=== PATIENT | male | born 1935 | race African-American/Black ===

== ENCOUNTER 2019-06-29 14:25 | Inpatient (IN) | payer MEDICARE, OTHER ==
--- NOTE | 2019-06-29 15:02 | RAD ---
EXAM: Chest 2 views: HISTORY: Chest pain which started last p.m. COMPARISON: None. FINDINGS: Heart size:Within normal limits. Lungs:Clear of acute process. Atherosclerotic changes of the aorta. No confluent pneumonia, overt edema, pleural effusion, pneumothorax, or other significant acute proce ss. IMPRESSION: Atherosclerosis of the aorta. No acute intrathoracic disease.
[2019-06-29 15:10] LABS: #Basophils 0.1 thou/uL (0.0-0.2); #Eosinphils 0.1 thou/uL (0.0-0.7); #Lymphocytes 1.2 thou/uL (1.20-3.40); #Monocytes 0.4 thou/uL (0.11-0.59); #Neutrophils 3.5 thou/uL (1.40-6.50); %Basophils 1.1 % (0.0-1.0); %Eosinophils 1.7 % (0.0-10.0); %Lymphocytes 23.1 % (21.0-51.0); %Monocytes 7.7 % (0.0-10.0); %Neutrophils 66.4 % (42.0-75.0); Hemoglobin 8.2 g/dL (14.0-18.0); Mean Corpuscular Hemoglobin 36.7 pg (27.0-31.0); Mean Platelet Volume 7.1 fL (7.4-10.4); Platelet Count 193 thou/uL (130-400); RBC Distribution Width 11.5 % (11.5-14.5); Red Blood Cell (RBC) Count 2.24 mill/uL (4.70-6.10); White Blood Cell (WBC) Count 5.2 thou/uL (4.8-10.8)
[2019-06-29 15:30] LABS: ALT (SGPT) 15 U/L (8-55); AST (SGOT) 11 U/L (5-34); Albumin 4.1 g/dL (3.4-4.8); Alkaline Phosphatase 88 U/L (40-110); Anion Gap 10 mmol/L (10-20); BUN (Urea Nitrogen) 31 mg/dL (8.4-25.7); Bilirubin, Total 0.5 mg/dL (0.2-1.2); Calc. Creatinine Clearance 0 mL/min (70-130); Calcium 9.2 mg/dL (7.8-10.44); Carbon Dioxide 25 mmol/L (23-31); Chloride 108 mmol/L (98-107); Estimated GFR-MDRD 38; Globulin 2.3 g/dL (2.4-3.5); Glucose 129 mg/dL (83-110); Potassium 4.9 mmol/L (3.5-5.1); Protein, Total 6.4 g/dL (5.8-8.1); Sodium 138 mmol/L (136-145)
[2019-06-29] MEDS ORDERED: Nitroglycerin 0.4 MG TAB 1 EACH ONE (16:09)
[2019-06-29] MEDS ORDERED: Senokot S 8.6-50 MG TAB PO PRN (17:58)
[2019-06-29] MEDS ORDERED: Acetaminophen 325 MG TAB PO PRN (17:58)
[2019-06-29] MEDS: Famotidine 20 MG TAB PO SCH (21:07)
[2019-06-29 21:34] LABS: Troponin I Less than 0.010 ng/mL (< 0.028)
[2019-06-29] MEDS ORDERED: Nitroglycerin 0.4 MG TAB (25 Tab Bottle) SL PRN (23:51)
--- NOTE | 2019-06-30 00:21 | HP ---
PRIMARY CARE PHYSICIAN: Ángel Carlos MD CHIEF COMPLAINT: Chest pain. HISTORY OF PRESENT ILLNESS: Mr. Caballero is a very pleasant 84-year-old male, who reported to the emergency room today after having chest pain, which he reports is sharp, since about 11 o'clock last night. Reports that it is intermittent and reminds him of his chest pain that he had over 5 years ago when 3 stents were placed for blockage. Reports that he was admitted to [facility] recently for hyperkalemia. He reports that Dr. Guzman has recently done a heart catheterization, which showed that he has some blockage in 3 coronary arteries. He was sent to Dr. George for evaluation for a CABG. He reports that he was going to visit with Dr. George today about scheduling this CABG and was advised not to take his daily aspirin. He denied any cough, congestion, diaphoresis, or pain radiation. He does report some shortness of breath and chest pain with exertion. EKG in the emergency room shows a normal sinus rhythm, beats per minute 77, conduction was normal, ST segments normal, T-waves were normal. Chest x-ray showed no acute process. Troponin x3 undetectable. The patient does have some chronic kidney disease and today, this appears stable. The patient admitted to the observation unit for further management. REVIEW OF SYSTEMS: The patient reports chest pain on the left side of his chest. Reports palpitations. Reports shortness of breath. Denies any cough, fever, or chills. He denied any abdominal pain, nausea, vomiting, or diarrhea. All systems are reviewed and are negative unless mentioned in the HPI. PAST MEDICAL HISTORY: Pertinent for hypertension, hyperkalemia, hyperlipidemia, gout, and coronary artery disease. SURGICAL HISTORY: Three cardiac stents, right wrist surgery, right shoulder surgery, 2 cardiac catheterizations. PSYCHIATRIC HISTORY: None. SOCIAL HISTORY: Drinks socially. Denies any drug use. Has no smoking history. ALLERGIES: PLAVIX AND DEMEROL. HOME MEDICATIONS: 1. Allopurinol 300 mg p.o. daily. 2. Norvasc 5 mg p.o. daily. 3. Atenolol p.o. daily. 4. Colchicine 0.6 mg p.o. daily. 5. Benadryl 25 mg p.r.n. as needed. 6. Pepcid 20 mg p.o. daily. 7. Fergon 324 mg p.o. daily. 8. Folic acid 1 mg p.o. daily. 9. Apresoline 10 mg p.o. daily. 10. Hydrochlorothiazide 12.5 mg p.o. daily. 11. Isosorbide 30 mg p.o. daily. 12. Nitrostat 0.4 mg sublingual p.r.n. 13. Flomax 0.4 mg p.o. daily. PHYSICAL EXAMINATION: VITAL SIGNS: Blood pressure 174/56, pulse is 64, respirations 17, temperature is 97.9, PO2 sats are 99% on room air. CONSTITUTIONAL: The patient is nontoxic appearing. He is alert and oriented to person, place, and time. HEENT: Head is atraumatic and normocephalic. Eyes; eyelids are normal to inspection. Pupils are equally round and reactive to light. ENT; mouth exam is normal. Mucous membranes are moist. NECK: Normal range of motion. Trachea is midline. RESPIRATORY/CHEST: Chest movement is symmetrical. Breath sounds are clear. CARDIOVASCULAR: Regular rate and rhythm. Heart sounds are normal. ABDOMEN: Bowel sounds are heard. No tenderness on palpation. BACK: Normal to inspection. Normal range of motion. EXTREMITIES: Upper extremity; normal range of motion. Motor strength is normal. Radial pulses are normal. Lower extremity; normal range of motion. Motor strength is normal. Pedal pulses are normal. There is no edema noted. NEURO: Patient is oriented to person, place, and time. Speech is normal. SKIN: Warm, dry, normal in color. PSYCH: Has a normal affect. PLAN/ASSESSMENT: 1. Chest pain, quite possibly angina with recently diagnosed coronary artery disease and blockage. Dr. George has been consulted by Dr. Guzman for a CABG. The patient was on his way to see him in the office. We will ask Dr. George to consult. We will trend troponins, keep patient on a heart monitor. Lipids were done in May of this year. 2. Hypertension. Restart home medications. We will trend. 3. Chronic kidney disease. This appears stable. We will monitor. Hold any nephrotoxic drugs. 4. Gout, appears stable. 5. Deep venous thrombosis and gastrointestinal prophylaxis have been started. 6. The patient is a full code. The patient reports his is his surrogate decision maker. 7. Hospital course is dependent on clinical findings. Job ID: [id number]
[2019-06-30 06:07] LABS: #Eosinphils 0.2 thou/uL (0.0-0.7); #Lymphocytes 1.4 thou/uL (1.20-3.40); #Monocytes 0.4 thou/uL (0.11-0.59); #Neutrophils 2.4 thou/uL (1.40-6.50); %Basophils 0.2 % (0.0-1.0); %Eosinophils 4.8 % (0.0-10.0); %Lymphocytes 30.9 % (21.0-51.0); %Monocytes 9.4 % (0.0-10.0); %Neutrophils 54.7 % (42.0-75.0); Hemoglobin 7.7 g/dL (14.0-18.0); Mean Corpuscular HGB CONC 33.2 g/dL (32.0-36.0); Mean Platelet Volume 7.5 fL (7.4-10.4); Platelet Count 186 thou/uL (130-400); RBC Distribution Width 11.4 % (11.5-14.5); Red Blood Cell (RBC) Count 2.15 mill/uL (4.70-6.10); White Blood Cell (WBC) Count 4.5 thou/uL (4.8-10.8)
[2019-06-30 06:32] LABS: Anion Gap 10 mmol/L (10-20); BUN (Urea Nitrogen) 25 mg/dL (8.4-25.7); Calc. Creatinine Clearance 39 mL/min (70-130); Calcium 8.9 mg/dL (7.8-10.44); Carbon Dioxide 24 mmol/L (23-31); Chloride 109 mmol/L (98-107); Estimated GFR-MDRD 52; Glucose 96 mg/dL (83-110); Potassium 4.8 mmol/L (3.5-5.1); Sodium 138 mmol/L (136-145)
[2019-06-30] MEDS ORDERED: Amlodipine 5 MG TAB PO SCH (09:00)
[2019-06-30] MEDS ORDERED: Hydrochlorothiazide 25 MG TAB PO SCH (09:00)
[2019-06-30] MEDS ORDERED: Folic Acid 1 MG TAB PO SCH (09:00)
[2019-06-30] MEDS ORDERED: hydrALAZINE 10 MG TAB PO SCH (09:00)
[2019-06-30] MEDS ORDERED: Tamsulosin HCl 0.4 MG CAP PO SCH (09:00)
[2019-06-30] MEDS ORDERED: Isosorbide Mononitrate (ER) 30 MG TAB PO SCH (09:00)
[2019-06-30] MEDS: Atenolol 25 MG TAB PO SCH (09:25)
--- NOTE | 2019-06-30 11:43 | PDOC.HOSPP ---
- Subjective Encounter Date: 06/30/19 Encounter Time: 11:41 Subjective: Mr. Caballero was seen today in follow-up of chest pain. He had a few very short episodes of chest pain off and on. - Objective Vital Signs & Weight: Vital Signs (12 hours) Temp Pulse Resp BP BP BP Pulse Ox 06/30/19 09:25 58 L 06/30/19 09:24 58 L 06/30/19 08:00 97.6 F 58 L 12 157/57 H 98 06/30/19 06:30 164/62 H 105/54 L 06/30/19 04:00 60 16 180/92 H 100 06/29/19 23:50 97.7 F 85 16 154/67 H 97 Weight Weight 164 lb I&O: 06/29/19 06/30/19 07/01/19 06:59 06:59 06:59 Intake Total 240 Balance 240 Result Diagrams: 06/30/19 05:46 06/30/19 05:46 Hospitalist ROS - Medication Medications: Active Medications Generic Name Dose Route Start Last Admin Trade Name Freq PRN Reason Stop Dose Admin Amlodipine Besylate 5 mg 06/30/19 09:00 06/30/19 09:25 Norvasc PO 5 mg DAILY RHEA Administration Atenolol 12.5 mg 06/30/19 09:00 06/30/19 09:25 Tenormin PO 12.5 mg DAILY RHEA Administration Famotidine 20 mg 06/29/19 21:00 06/29/19 21:07 Pepcid PO 20 mg QPM RHEA Administration Folic Acid 1 mg 06/30/19 09:00 06/30/19 09:25 Folvite PO 1 mg DAILY RHEA Administration Hydralazine HCl 10 mg 06/30/19 09:00 06/30/19 09:24 Apresoline PO 10 mg DAILY RHEA Administration Hydrochlorothiazide 12.5 mg 06/30/19 09:00 06/30/19 09:24 Hydrochlorothiazide PO 12.5 mg DAILY RHEA Administration Isosorbide Mononitrate 30 mg 06/30/19 09:00 06/30/19 09:25 Imdur Er PO 30 mg DAILY RHEA Administration Sodium Chloride 10 ml 06/29/19 17:58 06/30/19 09:25 Flush - Normal Saline IVF 10 ml PRN PRN Administration Saline Flush Tamsulosin HCl 0.4 mg 06/30/19 09:00 06/30/19 09:25 Flomax PO 0.4 mg DAILY RHEA Administration - Exam Eye: PERRL, anicteric sclera Neck: supple (bilateral carotid bruits) Heart: RRR, no murmur, no gallops, no rubs, normal peripheral pulses Respiratory: CTAB, no wheezes, no rales, no ronchi, normal chest expansion, no tachypnea, normal percussion Gastrointestinal: soft, non-tender, non-distended, normal bowel sounds, no palpable masses, no hepatomegaly Extremities: no cyanosis, no clubbing, no edema Hosp A/P (1) Chest pain Code(s): R07.9 - CHEST PAIN, UNSPECIFIED Status: Acute (2) CAD (coronary artery disease) Code(s): I25.10 - ATHSCL HEART DISEASE OF [place] CORONARY ARTERY W/O ANG PCTRS Status: Chronic (3) Hypertension Code(s): I10 - ESSENTIAL (PRIMARY) HYPERTENSION Status: Chronic (4) Gout Code(s): M10.9 - GOUT, UNSPECIFIED Status: Chronic - Plan * Chest pain- likely due to CAD- stable * HTN- blood pressure is stable * Gout- stable * Awaiting CV Surgery recommendations
--- NOTE | 2019-06-30 14:07 | CON ---
DATE OF CONSULTATION: HISTORY OF PRESENT ILLNESS: This is an 84-year-old gentleman referred by Dr. Guzman 1 week ago following cardiac cath for chest pain. The patient's enzymes were negative during that admission at the [facility]. However, he was found to have three-vessel coronary artery disease. He was seen by me 1 week ago and found to have bilateral carotid bruits and a carotid ultrasound, which showed severe bilateral internal carotid artery stenosis of greater than 70%. The patient has had no symptoms to suggest a TIA or stroke. PAST MEDICAL HISTORY: Includes hypertension, dyslipidemia, chronic kidney disease with a creatinine of about 2, and a history of elevated potassium levels. He has anemia of chronic disease and prostatic hypertrophy followed by Dr. Awad. PAST SURGICAL HISTORY: Includes right coronary stent about [address] Guzman, rotator cuff surgery, and a right wrist fusion. SOCIAL HISTORY: The patient is a nonsmoker for many years. He is and his does have some dementia. He does have children. 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 ALLERGIES: HE REPORTS ALLERGIES TO DEMEROL AND PLAVIX. MEDICATIONS: Include; 1. Hydrochlorothiazide 12.5 a day. 2. Amlodipine 5 a day. 3. Isosorbide 30 a day. 4. Hydralazine 10 t.i.d. 5. Atenolol 12.5 a day. 6. Aspirin 81 a day. 7. Flomax 0.4 a day. PHYSICAL EXAMINATION: VITAL SIGNS: Height 5 feet 11 inches, weight 172. Blood pressure 170/60. NECK: Bilateral harsh carotid bruits. CARDIAC: Regular rate and rhythm. No murmurs. LUNGS: Clear to auscultation. ABDOMEN: Normal bowel sounds. Soft, nontender. EXTREMITIES: Bilateral mild ankle edema with palpable femoral pulses bilaterally as well as a right popliteal and a right posterior tibial with absent pedal pulses on the left. He has a right ankle pressure of 190 and a left ankle pressure of 150. NEUROLOGIC: Unremarkable. PLAN: At this time for coronary artery bypass grafting tomorrow and informed consent has been obtained. Job ID: [id number]
[2019-06-30] MEDS: Famotidine 20 MG TAB PO SCH (20:09)
[2019-07-01] MEDS: Atenolol 25 MG TAB PO SCH (06:13)
[2019-07-01] MEDS ORDERED: Midazolam HCl 5 mg/5 ml Vial ONE (07:03)
[2019-07-01] MEDS ORDERED: Fentanyl 250 MCG/5 ML VIAL ONE (07:03)
[2019-07-01] MEDS ORDERED: Dexmedetomidine 200 MCG/2 ML VIAL ONE (07:03)
[2019-07-01] MEDS ORDERED: Albumin 5% 500 ML ONE (08:55)
[2019-07-01 09:09] LABS: #Eosinphils 0.2 thou/uL (0.0-0.7); #Lymphocytes 0.9 thou/uL (1.20-3.40); #Monocytes 0.4 thou/uL (0.11-0.59); %Basophils 0.4 % (0.0-1.0); %Eosinophils 3.8 % (0.0-10.0); %Lymphocytes 20.6 % (21.0-51.0); %Monocytes 7.9 % (0.0-10.0); %Neutrophils 67.3 % (42.0-75.0); Hemoglobin 8.8 g/dL (14.0-18.0); Mean Corpuscular HGB CONC 32.6 g/dL (32.0-36.0); Mean Corpuscular Hemoglobin 35.9 pg (27.0-31.0); Mean Platelet Volume 7.4 fL (7.4-10.4); Platelet Count 224 thou/uL (130-400); RBC Distribution Width 11.4 % (11.5-14.5); Red Blood Cell (RBC) Count 2.45 mill/uL (4.70-6.10); White Blood Cell (WBC) Count 4.4 thou/uL (4.8-10.8)
[2019-07-01 09:25] LABS: Anion Gap 14 mmol/L (10-20); BUN (Urea Nitrogen) 29 mg/dL (8.4-25.7); Calc. Creatinine Clearance 31 mL/min (70-130); Calcium 9.4 mg/dL (7.8-10.44); Carbon Dioxide 23 mmol/L (23-31); Chloride 108 mmol/L (98-107); Estimated GFR-MDRD 40; Glucose 107 mg/dL (83-110); Potassium 4.9 mmol/L (3.5-5.1); Sodium 140 mmol/L (136-145)
[2019-07-01] MEDS ORDERED: Midazolam HCl 2 mg/2 ml Vial ONE (09:26)
[2019-07-01] MEDS ORDERED: Heparin 10,000 UNITS/1 ML VIAL 30,000 UNITS in Sodium Chloride 0.9% 1,000 ML FS SCH (09:45)
[2019-07-01] MEDS ORDERED: Vecuronium 10 MG VIAL ONE (10:35)
[2019-07-01] MEDS ORDERED: Papaverine 60 MG/2 ML VIAL ONE (10:35)
[2019-07-01] MEDS ORDERED: Potassium Chloride 60 MEQ/30 ML VIAL ONE (10:35)
[2019-07-01] MEDS ORDERED: Lidocaine 2% PF 5 ML VIAL ONE (10:35)
[2019-07-01] MEDS ORDERED: Magnesium 5 GM/10 ML VIAL ONE (10:35)
[2019-07-01] MEDS ORDERED: Norepinephrine 4 MG/4 ML VIAL ONE (10:35)
[2019-07-01] MEDS ORDERED: PROPOFOL 200 MG/20 ML VIAL ONE (10:35)
[2019-07-01] MEDS ORDERED: Calcium Chloride 1 GM/10 ML Abboject SYRINGE ONE (10:35)
[2019-07-01] MEDS ORDERED: Heparin 30,000 units/30 ml VIAL ONE (10:35)
[2019-07-01] MEDS ORDERED: Dexamethasone 20 MG/5 ML VIAL ONE (10:35)
[2019-07-01] MEDS ORDERED: Ondansetron PF 4 MG/2 ML Vial ONE (10:35)
[2019-07-01] MEDS ORDERED: Protamine Sulfate 250 MG/25 ML VIAL ONE (10:35)
[2019-07-01] MEDS ORDERED: Cardioplegic Soln 1,000 ML BAG ONE (10:35)
[2019-07-01] MEDS ORDERED: Glycopyrrolate 0.2 MG/ML 5 ML SYRINGE ONE (10:35)
[2019-07-01] MEDS ORDERED: Sodium Bicarb 50 MEQ/50 ML Abboject 8.4% SYRINGE ONE (10:35)
[2019-07-01] MEDS ORDERED: Lidocaine 1% PF 5 ML VIAL ONE (10:35)
[2019-07-01] MEDS ORDERED: Thrombin 5000 UNITS/5 ML VIAL ONE (10:35)
[2019-07-01] MEDS ORDERED: Aminocaproic Acid 5 GM/20 ML VIAL ONE (10:35)
[2019-07-01] MEDS ORDERED: Heparin 5,000 UNITS/ML VIAL ONE (10:35)
[2019-07-01] MEDS ORDERED: Nitroglycerin 50 MG/250 ML BOT ONE (10:35)
[2019-07-01] MEDS ORDERED: ePHEDrine/0.9% NaCl/PF SYRINGE 50 mg/10 ml ONE (10:35)
[2019-07-01] MEDS ORDERED: PHENYLEPHRINE-NS 100 MCG/ML 10 ML SYRINGE ONE (11:37)
[2019-07-01] MEDS ORDERED: Insulin Regular 300 UNITS/3 ML VIAL ONE (12:28)
--- NOTE | 2019-07-01 13:57 | PDOC.HOSPP ---
- Subjective Encounter Date: 07/01/19 Encounter Time: 13:56 Subjective: Mr. Caballero was seen today in follow-up of unstable angina. He does not have any complaints. He feels ready for surgery. - Objective Vital Signs & Weight: Vital Signs (12 hours) Temp Pulse Resp BP Pulse Ox 07/01/19 08:00 97.4 F L 59 L 12 171/62 H 98 07/01/19 06:13 50 L 07/01/19 04:00 98.2 F 55 L 16 143/55 H 96 Weight Weight 164 lb I&O: 06/30/19 07/01/19 07/02/19 06:59 06:59 06:59 Intake Total 240 Balance 240 Result Diagrams: 07/01/19 08:49 07/01/19 08:49 Hospitalist ROS - Medication Medications: Active Medications Generic Name Dose Route Start Last Admin Trade Name Freq PRN Reason Stop Dose Admin Atenolol 12.5 mg 06/30/19 09:00 07/01/19 06:13 Tenormin PO Not Given DAILY RHEA - Exam Eye: PERRL Heart: RRR, no murmur, no gallops, no rubs, normal peripheral pulses Respiratory: CTAB, no wheezes, no rales, no ronchi, normal chest expansion Gastrointestinal: soft, non-tender, non-distended, normal bowel sounds, no palpable masses, no hepatomegaly, no splenomegaly Extremities: no cyanosis, no edema Hosp A/P (1) Chest pain Code(s): R07.9 - CHEST PAIN, UNSPECIFIED Status: Acute (2) CAD (coronary artery disease) Code(s): I25.10 - ATHSCL HEART DISEASE OF [place] CORONARY ARTERY W/O ANG PCTRS Status: Chronic (3) Hypertension Code(s): I10 - ESSENTIAL (PRIMARY) HYPERTENSION Status: Chronic (4) Gout Code(s): M10.9 - GOUT, UNSPECIFIED Status: Chronic - Plan * Unstable Angina- plan is for CABG today * HTN- blood pressure is stable * Macrocytic anemia- improved * Gout- stable
[2019-07-01] MEDS ORDERED: Fentanyl 100 MCG/2 ML VIAL SLOW IVP PRN (14:02)
[2019-07-01] MEDS ORDERED: Nitroglycerin 50 MG/250 ML BOT 250 ML IVPB PRN (14:02)
[2019-07-01] MEDS ORDERED: Ondansetron PF 4 MG/2 ML Vial IVP PRN (14:02)
[2019-07-01] MEDS ORDERED: Bisacodyl 10 MG SUPP PR PRN (14:02)
[2019-07-01] MEDS ORDERED: hydrALAZINE 20 MG/ML VIAL SLOW IVP PRN (14:02)
[2019-07-01] MEDS ORDERED: niCARdipine 25 MG in Sodium Chloride 0.9% 250 ML 250 ML IVPB PRN (14:02)
[2019-07-01] MEDS ORDERED: Norepinephrine 8 MG/0.9% NS 250 ML IVPB PRN (14:02)
[2019-07-01] MEDS ORDERED: Bisacodyl 5 MG TAB PO PRN (14:02)
[2019-07-01] MEDS ORDERED: DOPamine 400 MG/D5W 250 ML 250 ML IVPB PRN (14:02)
[2019-07-01] MEDS ORDERED: Post-Op Insulin Drip Protocol IVPB ONE (14:02)
[2019-07-01] MEDS ORDERED: Mag-Al 1200 mg/1200 mg/30 ML UDCUP PO PRN (14:02)
[2019-07-01] MEDS ORDERED: Hetastarch 6% 500 ML 500 ML IVPB PRN (14:02)
[2019-07-01] MEDS ORDERED: Promethazine HCl 25 MG/ML VIAL IM PRN (14:02)
[2019-07-01] MEDS ORDERED: Morphine 2 MG/ML SYRINGE SLOW IVP PRN (14:02)
[2019-07-01] MEDS ORDERED: Guaifenesin DM 100-10/5 ML UDCUP PO PRN (14:02)
[2019-07-01] MEDS ORDERED: Potassium Chloride 20 MEQ/100 ML PREMIX BAG IVPB PRN (14:02)
[2019-07-01] MEDS ORDERED: Magnesium 2 GM/50 ML 2 GM in Premix Bag 1 BAG IVPB SCH (14:02)
[2019-07-01] MEDS ORDERED: HUMULIN R 100 UNITS in Sodium Chloride 0.9% 100 ML IVPB SCH (14:33)
[2019-07-01] MEDS ORDERED: Insulin Regular 300 UNITS/3 ML VIAL SC PRN (14:33)
[2019-07-01] MEDS ORDERED: Dextrose 50% Abboject 50 ML SYRINGE SLOW IVP PRN (14:33)
[2019-07-01] MEDS ORDERED: Dextrose 5% in Water 1,000 ML IV PRN (14:33)
[2019-07-01 14:44] LABS: INR-International Normal Ratio 1.4; PTT 32.7 SEC (22.9-36.1); Prothrombin Time 17.1 SEC (12.0-14.7)
[2019-07-01 14:45] LABS: Actual Bicarbonate (HCO3a) 22.1 mEq/L (22-28); CO2 Tension 44.7 mmHg (35.0-45.0); Calcium, Ionized 1.15 mmol/L (1.12-1.30); Carboxyhemoglobin (COHb) 1.1 gm% (0.0-3.0); Hemoglobin (Hb) 11.5 g/dL (14.0-18.0); O2 Tension (PaO2) 97.4 mmHg (> 60.0); Potassium - ABG Lab 4.13 mmol/L (3.70-5.30); pH, Arterial 7.31 (7.35-7.45)
[2019-07-01 14:47] LABS: #Eosinphils 0.1 thou/uL (0.0-0.7); #Lymphocytes 1.5 thou/uL (1.20-3.40); #Monocytes 0.5 thou/uL (0.11-0.59); #Neutrophils 13.4 thou/uL (1.40-6.50); %Basophils 0.3 % (0.0-1.0); %Eosinophils 0.6 % (0.0-10.0); %Lymphocytes 9.9 % (21.0-51.0); %Monocytes 3.3 % (0.0-10.0); Hemoglobin 10.8 g/dL (14.0-18.0); Mean Corpuscular HGB CONC 32.5 g/dL (32.0-36.0); Mean Corpuscular Hemoglobin 33.1 pg (27.0-31.0); Platelet Count 130 thou/uL (130-400); RBC Distribution Width 17.8 % (11.5-14.5); Red Blood Cell (RBC) Count 3.25 mill/uL (4.70-6.10); White Blood Cell (WBC) Count 15.6 thou/uL (4.8-10.8)
[2019-07-01 14:49] LABS: ALV-art Gradient 203.225 (0-20); Puncture Site ALINE
[2019-07-01 14:57] LABS: Anion Gap 11 mmol/L (10-20); BUN (Urea Nitrogen) 25 mg/dL (8.4-25.7); Calc. Creatinine Clearance 37 mL/min (70-130); Calcium 8.1 mg/dL (7.8-10.44); Carbon Dioxide 23 mmol/L (23-31); Chloride 111 mmol/L (98-107); Estimated GFR-MDRD 49; Glucose 80 mg/dL (83-110); Potassium 4.3 mmol/L (3.5-5.1); Sodium 141 mmol/L (136-145)
--- NOTE | 2019-07-01 15:00 | RAD ---
Exam: Chest one view HISTORY:Status post open heart surgery Comparison: 06/29/2019 FINDINGS: Lines and tubes: Right-sided central venous catheter terminates in the right atrium. Left-sided chest tube, mediastinal drainage catheters are noted. There are sternotomy wires. Cardiac silhouette: Normal Aorta: Unremarkable Pulmonary vessels: Normal Costophrenic angles: Small left-sided pleural effusion. LUNGS: Patchy interstitial opacities may represent components of edema. Atelectasis cannot be exclude d. Pneumothorax: None Osseous abnormalities: None IMPRESSION: Findings compatible with recent open heart surgery.
--- NOTE | 2019-07-01 15:15 | OP ---
DATE OF PROCEDURE: 07/01/2019 PREOPERATIVE DIAGNOSIS: Coronary artery disease. PROCEDURES PERFORMED: Coronary artery bypass graft x3, good quality THOMPSON to a 1.5 mm left anterior descending artery, good quality saphenous vein to a 1.5 mm right PDA and 1.5 mm OM1. MUSKRAT TRAPPER: Gabriel. TRANSFUSION: None. FINDINGS: As noted above plus the diagonal was dissected out, however, was heavily calcified until its bifurcation and then the two branches were rather small, so it was not opened. After adequate anesthesia had been obtained, saphenous vein was harvested with an endovascular technique in the left leg while I performed a median sternotomy. Left internal mammary artery was harvested and divided distally and then the patient was heparinized. Intraluminal papaverine was placed, following which, aorta and right atrium were cannulated. Cardiopulmonary bypass was begun. Following which, the aorta was cross clamped and after a liter of cold blood cardioplegia, 3 distal anastomosis were completed. Following this, the cross-clamp was removed, partial occluding clamp placed and 2 proximal anastomosis performed on the aortic root. After this had been completed, proximal and distal anastomosis were examined and were hemostatic. Rings were used to ivana the 2 proximal anastomosis. Mediastinal and left pleural drains were placed and after obtaining good hemostasis following the cannulation and securing the suture lines, the patient's sternum was reapproximated with #7 interrupted wire using vancomycin paste on the sternal edges, platelet rich blood and platelet poor plasma. Subcutaneous tissue and skin were closed in layers. Job ID: [id number]
[2019-07-01] MEDS: Sodium Chloride 0.9% 1,000 ML IV SCH (15:34)
[2019-07-01] MEDS: CEFAZOLIN 2 GM in Premix Bag 1 BAG IVPB SCH (15:36)
[2019-07-01] MEDS: Fentanyl 100 MCG/2 ML VIAL SLOW IVP PRN (16:16)
--- NOTE | 2019-07-01 17:37 | EKG ---
Test Reason : POST CABG Blood Pressure : / mmHG Vent. Rate : 059 BPM Atrial Rate : 059 BPM P-R Int : 148 ms QRS Dur : 090 ms QT Int : 464 ms P-R-T Axes : 058 -11 035 degrees QTc Int : 459 ms Sinus bradycardia Otherwise normal ECG When compared with ECG of 29-JUN-2019 14:33, (Unconfirmed) No significant change was found Confirmed by DR. Mee DIAZ ([id number]) on 07/01/2019 5:37:24 PM Referred By: KARSON Confirmed By:DR. Mee DIAZ
[2019-07-01 20:02] LABS: Potassium 4.9 mmol/L (3.5-5.1)
[2019-07-01] MEDS: HYDROcodone/Acetaminophen 5/325 mg Tablet PO PRN (20:08)
[2019-07-01] MEDS: Tamsulosin HCl 0.4 MG CAP PO SCH (20:09)
[2019-07-01] MEDS: Famotidine/PF 20 mg/2ml Vial SLOW IVP SCH (20:09)
--- NOTE | 2019-07-01 21:36 | CON ---
DATE OF CONSULTATION: HISTORY OF PRESENT ILLNESS: Federico is an 84-year-old black male, patient of Dr. Guzman. He apparently has had previous stents placed and underwent catheterization 1 week ago at [facility] and was found to have 3 vessel coronary artery disease. He also was found to have bilateral carotid artery bruits. He underwent CABG x3 today with THOMPSON to the LAD, saphenous vein graft to the right PDA and saphenous vein graft to the first obtuse marginal. Postoperatively, he is atrially paced. He is still somewhat lethargic and complains of some chest pain, but no shortness of breath. PAST MEDICAL HISTORY: Hypercholesterolemia, diabetes, chronic kidney disease, anemia of chronic disease, benign prostatic hypertrophy. PAST SURGICAL HISTORY: Include coronary artery stents, rotator cuff surgery, wrist surgery. SOCIAL HISTORY: He currently does not smoke. MEDICATIONS: 1. Hydrochlorothiazide 12.5 daily. 2. Amlodipine 5 mg daily. 3. Isosorbide 30 mg daily. 4. Hydralazine 10 t.i.d. 5. Atenolol 12.5 daily. 6. Aspirin 81 daily. 7. Flomax 0.4 mg daily. ALLERGIES: DEMEROL AND PLAVIX. REVIEW OF SYSTEMS: Unobtainable due to his lethargy. PHYSICAL EXAMINATION: VITAL SIGNS: Blood pressure 126/45, pulse of 80, atrially paced. HEENT: PERRL. NECK: Supple. CHEST: Clear. CARDIAC: S1 and S2 normal without any S3, S4, or murmurs. There is a pericardial rub present. ABDOMEN: Normal bowel sounds without tenderness or organomegaly. EXTREMITIES: Revealed no clubbing, cyanosis, or edema. NEUROLOGIC: The patient is lethargic, but moves all extremities. LABORATORY DATA: EKG reveals sinus bradycardia with no acute changes. Hemoglobin 10.8, hematocrit 33.1, white count 60680, platelets 130,000. PH 7.31, pCO2 of 44.7, pO2 97.4. Sodium 141, potassium 4.3, chloride 111, carbon dioxide 23, BUN 25, creatinine 1.63. IMPRESSION: 1. Status post coronary artery bypass grafting. 2. Bradycardia, atrially paced at this time. 3. Hypertension. 4. Hypercholesterolemia. 5. Chronic kidney disease. PLAN: Routine postoperative care. Job ID: [id number]
[2019-07-02] MEDS: CEFAZOLIN 2 GM in Premix Bag 1 BAG IVPB SCH ×2 (01:26→09:28)
[2019-07-02] MEDS: Sodium Chloride 0.9% 1,000 ML IV SCH ×2 (02:40→07:42)
[2019-07-02 05:55] LABS: #Lymphocytes 0.3 thou/uL (1.20-3.40); #Monocytes 0.9 thou/uL (0.11-0.59); #Neutrophils 11.8 thou/uL (1.40-6.50); %Eosinophils 0.1 % (0.0-10.0); %Lymphocytes 2.3 % (21.0-51.0); %Monocytes 6.6 % (0.0-10.0); %Neutrophils 90.9 % (42.0-75.0); Hemoglobin 10.2 g/dL (14.0-18.0); Mean Corpuscular HGB CONC 32.9 g/dL (32.0-36.0); Mean Corpuscular Hemoglobin 33.8 pg (27.0-31.0); Mean Platelet Volume 8.3 fL (7.4-10.4); Platelet Count 144 thou/uL (130-400); RBC Distribution Width 18.3 % (11.5-14.5); Red Blood Cell (RBC) Count 3.02 mill/uL (4.70-6.10)
[2019-07-02 06:14] LABS: Anion Gap 12 mmol/L (10-20); BUN (Urea Nitrogen) 31 mg/dL (8.4-25.7); Calc. Creatinine Clearance 25 mL/min (70-130); Calcium 8.4 mg/dL (7.8-10.44); Carbon Dioxide 22 mmol/L (23-31); Chloride 112 mmol/L (98-107); Estimated GFR-MDRD 40; Glucose 124 mg/dL (83-110); Potassium 5.4 mmol/L (3.5-5.1); Sodium 141 mmol/L (136-145)
[2019-07-02] MEDS: HYDROcodone/Acetaminophen 5/325 mg Tablet PO PRN ×3 (07:40→23:55)
--- NOTE | 2019-07-02 08:12 | RAD ---
PORTABLE CHEST: HISTORY: Post open heart surgery. COMPARISON: Prior day's exam. FINDINGS: Heart size appears borderline with postop sternotomy change. Left-sided chest tube is unchanged in p osition. The lungs show atelectatic change in the left base. IMPRESSION: Stable exam. POS: OFF
[2019-07-02] MEDS: Aspirin Chewable 81 MG TAB PO SCH (09:27)
--- NOTE | 2019-07-02 10:02 | PDOC.HOSPP ---
- Subjective Encounter Date: 07/02/19 Encounter Time: 10:00 Subjective: Mr. Caballero was seen today in follow-up of CAD post CABG. He does not have any complaints. - Objective Vital Signs & Weight: Vital Signs (12 hours) Pulse Ox 07/02/19 00:24 95 Weight Weight 135 lb 3.2 oz Most Recent Monitor Data Heart Rate from ECG 80 NIBP 138/59 NIBP BP-Mean 85 Respiration from ECG 16 SpO2 100 I&O: 07/01/19 07/02/19 07/03/19 06:59 06:59 06:59 Intake Total 1462 Output Total 1135 Balance 327 Result Diagrams: 07/02/19 05:42 07/02/19 05:42 Additional Labs: Accuchecks 07/02/19 07/01/19 07/01/19 01:27 21:02 16:16 POC Glucose 113 H 150 H 105 07/01/19 14:23 POC Glucose 80 Hospitalist ROS - Medication Medications: Active Medications Generic Name Dose Route Start Last Admin Trade Name Freq PRN Reason Stop Dose Admin Hydrocodone Bitart/Acetaminophen 1 tab 07/01/19 14:02 07/01/19 20:08 [place] 5/325 PO 1 tab Q4H PRN Administration Moderate Pain (4-6) Hydrocodone Bitart/Acetaminophen 2 tab 07/01/19 14:02 07/02/19 07:40 [place] 5/325 PO 2 tab Q4H PRN Administration Severe Pain (7-10) Aspirin 81 mg 07/02/19 09:00 07/02/19 09:27 Aspirin Chewable PO 81 mg DAILY RHEA Administration Famotidine 20 mg 07/01/19 21:00 07/01/19 20:09 Pepcid SLOW IVP 20 mg 2100 RHEA Administration Fentanyl 25 mcg 07/01/19 14:02 07/01/19 16:16 Sublimaze SLOW IVP 07/03/19 13:44 25 mcg Q2H PRN Administration Moderate Pain (4-6) Sodium Chloride 1,000 mls @ 50 mls/hr 07/02/19 06:15 07/02/19 07:42 Normal Saline 0.9% IV 1,000 mls .Q20H RHEA Administration Sodium Chloride 10 ml 07/02/19 09:00 07/02/19 09:29 Flush - Normal Saline IVF 10 ml Q12HR RHEA Administration Tamsulosin HCl 0.4 mg 07/01/19 21:00 07/01/19 20:09 Flomax PO 0.4 mg HS RHEA Administration - Exam Eye: PERRL Heart: RRR, no murmur, no gallops, no rubs, normal peripheral pulses Respiratory: CTAB, no wheezes, no rales, no ronchi, normal chest expansion, no tachypnea, normal percussion Gastrointestinal: soft, non-tender, non-distended, normal bowel sounds, no palpable masses Extremities: no cyanosis, no clubbing, no edema Hosp A/P (1) Chest pain Code(s): R07.9 - CHEST PAIN, UNSPECIFIED Status: Acute (2) CAD (coronary artery disease) Code(s): I25.10 - ATHSCL HEART DISEASE OF [place] CORONARY ARTERY W/O ANG PCTRS Status: Chronic (3) Hypertension Code(s): I10 - ESSENTIAL (PRIMARY) HYPERTENSION Status: Chronic (4) Gout Code(s): M10.9 - GOUT, UNSPECIFIED Status: Chronic - Plan * Unstable Angina- Patient is s/p 3 vessel CABG * He is hemodynamically stable * HTN- blood pressure is stable * Macrocytic anemia- improved after transfusion * Gout- stable * Continue as per CV surgery
[2019-07-02] MEDS: Acetaminophen 325 MG TAB PO PRN (17:16)
[2019-07-02] MEDS ORDERED: hydrALAZINE 25 MG TAB PO SCH (18:00)
[2019-07-02] MEDS: Atorvastatin Calcium 40 MG TAB PO SCH (20:24)
[2019-07-02] MEDS: hydrALAZINE 10 MG TAB PO SCH (20:26)
[2019-07-02] MEDS: Tamsulosin HCl 0.4 MG CAP PO SCH (20:27)
[2019-07-02] MEDS: Famotidine/PF 20 mg/2ml Vial SLOW IVP SCH (20:33)
[2019-07-03] MEDS: Sodium Chloride 0.9% 1,000 ML IV SCH (02:15)
[2019-07-03 05:04] LABS: #Lymphocytes 1.2 thou/uL (1.20-3.40); #Monocytes 1.2 thou/uL (0.11-0.59); %Basophils 0.2 % (0.0-1.0); %Eosinophils 0.1 % (0.0-10.0); %Lymphocytes 8.2 % (21.0-51.0); %Monocytes 8.2 % (0.0-10.0); %Neutrophils 83.2 % (42.0-75.0); Hemoglobin 9.6 g/dL (14.0-18.0); Mean Corpuscular HGB CONC 31.8 g/dL (32.0-36.0); Mean Corpuscular Hemoglobin 33.2 pg (27.0-31.0); Mean Platelet Volume 8.4 fL (7.4-10.4); Platelet Count 136 thou/uL (130-400); RBC Distribution Width 17.9 % (11.5-14.5); Red Blood Cell (RBC) Count 2.89 mill/uL (4.70-6.10); White Blood Cell (WBC) Count 14.4 thou/uL (4.8-10.8)
[2019-07-03 05:44] LABS: Anion Gap 11 mmol/L (10-20); BUN (Urea Nitrogen) 36 mg/dL (8.4-25.7); Calc. Creatinine Clearance 28 mL/min (70-130); Calcium 8.5 mg/dL (7.8-10.44); Carbon Dioxide 22 mmol/L (23-31); Chloride 112 mmol/L (98-107); Estimated GFR-MDRD 35; Glucose 124 mg/dL (83-110); Potassium 5.4 mmol/L (3.5-5.1); Sodium 140 mmol/L (136-145)
--- NOTE | 2019-07-03 07:31 | RAD ---
EXAM: Portable chest PROVIDED CLINICAL HISTORY: Post open heart COMPARISON: 07/02/2019 FINDINGS: Significant interval change with respect to the prior examination is not apparent. IMPRESSION: As above.
[2019-07-03] MEDS: Fentanyl 100 MCG/2 ML VIAL SLOW IVP PRN (08:28)
[2019-07-03] MEDS: Ferrous Gluconate 324 MG TAB PO SCH (08:33)
[2019-07-03] MEDS: Aspirin Chewable 81 MG TAB PO SCH (08:34)
[2019-07-03] MEDS: Famotidine 20 MG TAB PO SCH (08:34)
[2019-07-03] MEDS: hydrALAZINE 10 MG TAB PO SCH ×3 (08:34→20:28)
[2019-07-03] MEDS: Allopurinol 300 MG TAB PO SCH (08:35)
[2019-07-03] MEDS: Atenolol 25 MG TAB PO SCH (08:35)
[2019-07-03] MEDS ORDERED: traMADol HCl 50 MG TAB PO PRN (09:00)
[2019-07-03] MEDS ORDERED: Amlodipine 5 MG TAB PO SCH (09:00)
[2019-07-03] MEDS ORDERED: traMADol HCl 50 MG TAB PO SCH ×2 (09:00→09:15)
[2019-07-03] MEDS ORDERED: Dextrose 50% Abboject 50 ML SYRINGE SLOW IVP SCH ×2 (11:39→17:15)
--- NOTE | 2019-07-03 11:41 | PDOC.HOSPP ---
- Subjective Encounter Date: 07/03/19 Encounter Time: 11:30 Subjective: Patient is doing well post CABG. He denies chest pain or shortness of breath. Chest tube and epicardial drain removed today per nursing staff. Patient reports relief after having tubes taken out. Patient still on bed-rest currently. On nitro drip. Hasn't had bowel movement in two days. - Objective Vital Signs & Weight: Vital Signs (12 hours) Temp Pulse BP 07/03/19 08:35 89 152/42 H 07/03/19 08:34 91 150/41 H 07/03/19 04:00 98.5 F 07/03/19 00:00 98.5 F Weight Weight 166 lb 3.657 oz Most Recent Monitor Data Heart Rate from ECG 73 NIBP 127/48 NIBP BP-Mean 74 Respiration from ECG 19 SpO2 97 I&O: 07/02/19 07/03/19 07/04/19 06:59 06:59 06:59 Intake Total 1462 1259.5 Output Total 1135 1057 Balance 327 202.5 Result Diagrams: 07/03/19 04:50 07/03/19 04:50 Additional Labs: Accuchecks 07/01/19 07/01/19 07/01/19 13:50 12:49 12:15 POC Glucose 100 157 H 171 H 07/01/19 07/01/19 11:31 10:28 POC Glucose 153 H 111 H Hospitalist ROS - Review of Systems Constitutional: denies: fever, chills - Medication Medications: Active Medications Generic Name Dose Route Start Last Admin Trade Name Freq PRN Reason Stop Dose Admin Acetaminophen 650 mg 07/01/19 14:02 07/02/19 17:16 Tylenol PO 650 mg Q6H PRN Administration Headache/Fever Or Mild Pain Allopurinol 300 mg 07/03/19 09:00 07/03/19 08:35 Zyloprim PO 300 mg DAILY RHEA Administration Amlodipine Besylate 5 mg 07/03/19 09:00 07/03/19 08:34 Norvasc PO 5 mg DAILY RHEA Administration Aspirin 81 mg 07/02/19 09:00 07/03/19 08:34 Aspirin Chewable PO 81 mg DAILY RHEA Administration Atenolol 12.5 mg 07/03/19 09:00 07/03/19 08:35 Tenormin PO 12.5 mg DAILY RHEA Administration Atorvastatin Calcium 40 mg 07/02/19 21:00 07/02/19 20:24 Lipitor PO 40 mg HS RHEA Administration Colchicine 0.6 mg 07/03/19 09:00 07/03/19 09:05 Colchicine PO 0.6 mg DAILY RHEA Administration Famotidine 20 mg 07/03/19 09:00 07/03/19 08:34 Pepcid PO 20 mg DAILY RHEA Administration Fentanyl 25 mcg 07/01/19 14:02 07/03/19 08:28 Sublimaze SLOW IVP 07/03/19 13:44 25 mcg Q2H PRN Administration Moderate Pain (4-6) Ferrous Gluconate 324 mg 07/03/19 09:00 07/03/19 08:33 Fergon PO 324 mg DAILY RHEA Administration Hydralazine HCl 10 mg 07/02/19 21:00 07/03/19 08:34 Apresoline PO 10 mg TID RHEA Administration Ondansetron HCl 4 mg 07/01/19 14:02 07/02/19 10:58 Zofran IVP 4 mg Q6H PRN Administration Nausea/Vomiting Sodium Chloride 10 ml 07/02/19 09:00 07/03/19 08:36 Flush - Normal Saline IVF 10 ml Q12HR RHEA Administration Tamsulosin HCl 0.4 mg 07/01/19 21:00 07/02/19 20:27 Flomax PO 0.4 mg HS RHEA Administration Tramadol HCl 50 mg 07/03/19 09:00 07/03/19 11:31 Ultram PO 50 mg Q12H PRN Administration Pain - Exam General Appearance: NAD, awake alert Eye: PERRL, anicteric sclera ENT: normocephalic atraumatic, no oropharyngeal lesions Neck: supple, symmetric Heart: RRR, no murmur, no gallops, no rubs Respiratory: CTAB, no wheezes, no rales Gastrointestinal: soft, non-tender, non-distended Extremities: no cyanosis, no clubbing, no edema Extremities - other findings: YEMI bandage on left leg Skin: normal turgor, no lesions, no rashes Neurological: cranial nerve grossly intact, normal sensation to touch, no focal deficits, no new deficit Musculoskeletal: normal tone, normal strength Hosp A/P - Plan christiansen catheter, DVT proph w/heparin This is an 84 year old male with past medical history hypertension, CAD, diabetes, CKD who presented to the hospital after CABG. Currently still in the CCU S/p CABG POD2 - currently on nitro drip. S/p removal of drains today - chest Xray shows no acute disease - continue atenolol, aspirin and statin Hyperkalemia - potassium 5.4, will give insulin and dextrose and repeat K level in afternoon CKD - creatinine 2.18, at baseline Macrocytic anemia - Hb 9.6/30, MCV 104. will check B12 and folate Constipation - laxatives prn Gout - colchicine and allopurinol DVT prophylaxis: per CT surgery
[2019-07-03] MEDS ORDERED: Insulin Regular 300 UNITS/3 ML VIAL IVP SCH (11:45)
--- NOTE | 2019-07-03 12:10 | PDOC.CPN ---
- Subjective Date: 07/03/19 Time: 12:08 Interval history: He had his tubes pulled out and feels better. He has not had a BM but is passing gas. - Review of Systems General: denies: fever/chills, weight/appetite/sleep changes, night sweats, fatigue Respiratory: denies: cough, congestion, shortness of breath, exercise intolerance Cardiovascular: reports: chest pain. denies: palpitation, edema, paroxysmal nocturnal dyspnea, orthopnea Gastrointestinal: denies: nausea, vomiting, diarrhea, constipation, abd pain, GI bleeding Musculoskeletal: denies: pain, tenderness, stiffness, swelling, arthritis/ arthralgias Neurological: denies: numbness, syncope, seizure, weakness - Objective Allergies/Adverse Reactions: Allergies Allergy/AdvReac Type Severity Reaction Status Date / Time clopidogrel [From Plavix] Allergy Verified 06/29/19 21:05 meperidine [From Demerol] Allergy cramps Verified 06/29/19 21:05 Visit Medications: Current Medications Acetaminophen (Tylenol) 650 mg PO Q6H PRN PRN Reason: Headache/Fever Or Mild Pain Last Admin: 07/02/19 17:16 Dose: 650 mg Al Hydroxide/Mg Hydroxide (Maalox) 30 ml PO Q4H PRN PRN Reason: Indigestion Allopurinol (Zyloprim) 300 mg PO DAILY [facility] Last Admin: 07/03/19 08:35 Dose: 300 mg Amlodipine Besylate (Norvasc) 5 mg PO DAILY [facility] Last Admin: 07/03/19 08:34 Dose: 5 mg Aspirin (Aspirin Chewable) 81 mg PO DAILY [facility] Last Admin: 07/03/19 08:34 Dose: 81 mg Atenolol (Tenormin) 12.5 mg PO DAILY [facility] Last Admin: 07/03/19 08:35 Dose: 12.5 mg Atorvastatin Calcium (Lipitor) 40 mg PO HS [facility] Last Admin: 07/02/19 20:24 Dose: 40 mg Bisacodyl (Dulcolax) 10 mg PO Q12H PRN PRN Reason: Constipation Bisacodyl (Dulcolax) 10 mg RI Q12H PRN PRN Reason: Constipation Colchicine (Colchicine) 0.6 mg PO DAILY [facility] Last Admin: 07/03/19 09:05 Dose: 0.6 mg Dextrose/Water (Dextrose 50%) 25 gm SLOW IVP 2099 [facility] Stop: 07/03/19 14:00 Famotidine (Pepcid) 20 mg PO DAILY [facility] Last Admin: 07/03/19 08:34 Dose: 20 mg Fentanyl (Sublimaze) 25 mcg SLOW IVP Q2H PRN PRN Reason: Moderate Pain (4-6) Stop: 07/03/19 13:44 Last Admin: 07/03/19 08:28 Dose: 25 mcg Fentanyl (Sublimaze) 50 mcg SLOW IVP Q2H PRN PRN Reason: Severe Pain (7-10) Stop: 07/03/19 13:44 Ferrous Gluconate (Fergon) 324 mg PO DAILY [facility] Last Admin: 07/03/19 08:33 Dose: 324 mg Guaifenesin/Dextromethorphan (Robitussin Dm) 15 ml PO Q4H PRN PRN Reason: Cough Heparin Sodium (Porcine) (Heparin) 5,000 units SC TID [facility] Hydralazine HCl (Apresoline) 10 mg SLOW IVP Q6H PRN PRN Reason: To Maintain SBP< 140mmHG Hydralazine HCl (Apresoline) 10 mg PO TID [facility] Last Admin: 07/03/19 08:34 Dose: 10 mg Nitroglycerin/Dextrose (Nitroglycerin 50 Mg/250 Ml Bot) 250 mls @ 0 mls/hr IVPB PRN PRN; Protocol PRN Reason: To Maintain SBP< 140mmHG Insulin Human Regular (Humulin R) 10 units IVP ONE [facility] Stop: 07/03/19 14:00 Ondansetron HCl (Zofran) 4 mg IVP Q6H PRN PRN Reason: Nausea/Vomiting Last Admin: 07/02/19 10:58 Dose: 4 mg Promethazine HCl (Phenergan) 6.25 mg IM Q4H PRN PRN Reason: Nausea/Vomiting Sodium Chloride (Flush - Normal Saline) 10 ml IVF Q12HR [facility] Last Admin: 07/03/19 08:36 Dose: 10 ml Sodium Chloride (Flush - Normal Saline) 10 ml IVF PRN PRN PRN Reason: Saline Flush Tamsulosin HCl (Flomax) 0.4 mg PO HS [facility] Last Admin: 07/02/19 20:27 Dose: 0.4 mg Tramadol HCl (Ultram) 50 mg PO Q12H PRN PRN Reason: Pain Last Admin: 07/03/19 11:31 Dose: 50 mg Vital Signs & Weight: Vital Signs Temp Pulse BP 07/03/19 08:35 89 152/42 H 07/03/19 08:34 91 150/41 H 07/03/19 04:00 98.5 F Weight 166 lb 3.657 oz - Physical Exam General: alert & oriented x3, no apparent distress HEENT: mucus membranes moist Neck: supple neck, midline trachea Cardiac: regular rate and rhythm, no murmur Lungs: clear to auscultation Neuro: grossly intact, coordination normal, no lateralizing findings Abdomen: active bowel sounds, soft, non-tender Extremities: no edema Skin: clear Musculoskeletal: no pain - Labs Result Diagrams: 07/03/19 04:50 07/03/19 04:50 Troponin/CKMB Troponin I Less than 0.010 ng/mL (< 0.028) 06/29/19 21:04 - Telemetry Sinus rhythms and dysrhythmias: sinus rhythm - Assessment/Plan Assessment/Plan: 1. Multivessel CAD 2. S/P CABG 3. THOMPSON to LAD, SVg to RPDA, SVG to OM1 4. DMT2 5. CKD 6. Anemia of chronic disease. PLAN: - Increase PT as tolerated. - ASA and statin for life - Will stop Amlodipine and start low dose ACEI for guideline directed therapy. - Agree with other meds. - Critical Care Time Critical care time (mins): 30
--- NOTE | 2019-07-03 13:31 | CON ---
DATE OF CONSULTATION: 07/03/2019 SERVICE: Pulmonary Medicine. REASON FOR CONSULTATION: ICU patient. HISTORY OF PRESENT ILLNESS: The patient is an 84-year-old white male with past medical history significant for coronary artery disease. Ultimately, he was identified as having operative disease and on the July 01, underwent a coronary artery bypass graft x3 vessels. After the procedure, the patient required pacing for a brief period of time. Additionally, his blood pressures were in the severe range requiring some nitroglycerin. Ultimately, his chest tubes were removed today and his breathing is actually quite comfortable. That being said, he needs to be monitored in the ICU for one additional day. Pulmonary/Critical Care was subsequently consulted for this reason. He denies having any fevers or chills. He is not coughing up any sputum. He denies having any hemoptysis, night sweats, nausea, or vomiting. He is tolerating some gentle p.o. He has yet to be out of bed. PAST MEDICAL HISTORY: 1. Coronary artery disease, status post recent coronary artery bypass graft. 2. Hypertension. 3. Dyslipidemia. 4. Gout. PAST SURGICAL HISTORY: 1. History of PCI. 2. Right wrist surgery. 3. Right shoulder surgery. 4. Coronary artery bypass graft x3 vessels. SOCIAL HISTORY: Negative for alcohol, tobacco, or illicit drug use. He has no exposure to chemicals, dust, asbestos, or tuberculosis. FAMILY HISTORY: Noncontributory. ALLERGIES: PLAVIX AND DEMEROL. MEDICATIONS: List of the patient's inpatient medications were reviewed. No specific updates were made at this time. REVIEW OF SYSTEMS: General, head, ears, eyes, nose, throat, cardiovascular, respiratory, GI, , musculoskeletal, neurologic, and skin are negative except as mentioned in the HPI. PHYSICAL EXAMINATION: VITAL SIGNS: Afebrile, pulse 72, blood pressure 117/34, respirations, and saturation 96% on room air. GENERAL: The patient is awake and alert, in no apparent distress. LUNGS: Very good air entry with no prolonged expiratory phase or wheezing present. HEART: Normal rate. Regular. ABDOMEN: Soft, nontender, and nondistended. Bowel sounds are positive. MUSCULOSKELETAL: No cyanosis or clubbing. There is no pitting in the bilateral lower extremities. NEUROLOGIC: Grossly nonfocal. LABORATORY DATA: WBC 14.4, hemoglobin 9.6, and platelets 136,000. INR 1.4. Creatinine 2.18 and gently up trending and BUN 36, potassium 5.4, and chloride 112. Bicarb 22. IMAGING: Chest x-ray demonstrates right subclavian catheter is in good position. No acute pleural parenchymal disease is present, though there is a little bit of cephalization of the pulmonary vasculature. On this film, there is still a mediastinal drain, and a left-sided chest tube, which have subsequently been removed. There is possibly a right-sided pleural effusion, which is small. Cardiomegaly is noted on this AP film. ASSESSMENT: 1. Acute hypoxic respiratory failure, resolved. 2. Coronary artery disease, status post coronary artery bypass graft, postop day 2. 3. Macrocytic anemia. DISCUSSION AND PLAN: I will check a B12 and folate, if this has not been checked before. Otherwise, I will continue to follow along during this hospital stay while the patient remains in this location. We will focus on mobilization efforts throughout today. 70 minutes have been devoted to this patient in various activities. I personally reviewed all imaging studies and laboratory data noted within this document. For fifty percent of this time, I was interacting with the patient at the bedside or coordinating care with the care team. For the remainder of the time I was immediately available to the patient in the hospital unit. Job ID: [id number] MTDD
[2019-07-03] MEDS: Heparin 5,000 UNITS/ML VIAL SC SCH ×2 (15:00→20:30)
[2019-07-03 20:12] LABS: Potassium 5.2 mmol/L (3.5-5.1)
[2019-07-03] MEDS: Atorvastatin Calcium 40 MG TAB PO SCH (20:30)
[2019-07-03] MEDS: Tamsulosin HCl 0.4 MG CAP PO SCH (20:31)
[2019-07-04] MEDS ORDERED: Amiodarone 450 MG, Admixture Fee 1 EACH in Dextrose 5% in Water 250 ML IVPB SCH (01:15)
[2019-07-04] MEDS: Acetaminophen 325 MG TAB PO PRN (01:23)
[2019-07-04 04:49] LABS: ALT (SGPT) Less than 7 U/L (8-55); AST (SGOT) 14 U/L (5-34); Albumin 2.8 g/dL (3.4-4.8); Alkaline Phosphatase 63 U/L (40-110); Anion Gap 11 mmol/L (10-20); BUN (Urea Nitrogen) 42 mg/dL (8.4-25.7); Bilirubin, Total 0.5 mg/dL (0.2-1.2); Calc. Creatinine Clearance 27 mL/min (70-130); Calcium 8.3 mg/dL (7.8-10.44); Carbon Dioxide 22 mmol/L (23-31); Chloride 112 mmol/L (98-107); Estimated GFR-MDRD 34; Globulin 2.3 g/dL (2.4-3.5); Glucose 126 mg/dL (83-110); Potassium 5.2 mmol/L (3.5-5.1); Protein, Total 5.1 g/dL (5.8-8.1); Sodium 140 mmol/L (136-145)
[2019-07-04 04:56] LABS: #Lymphocytes 1.1 thou/uL (1.20-3.40); #Neutrophils 9.7 thou/uL (1.40-6.50); %Basophils 0.1 % (0.0-1.0); %Eosinophils 0.1 % (0.0-10.0); %Monocytes 8.5 % (0.0-10.0); %Neutrophils 82.3 % (42.0-75.0); Anisocytosis SLIGHT = 6-15 cells (100X) (0-5/hpf); Hemoglobin 8.7 g/dL (14.0-18.0); MDiff Complete? YES; Macrocytosis SLIGHT = 6-15 cells (100X) (0-5/hpf); Mean Corpuscular HGB CONC 31.7 g/dL (32.0-36.0); Mean Corpuscular Hemoglobin 33.1 pg (27.0-31.0); Mean Platelet Volume 8.4 fL (7.4-10.4); Platelet Count 129 thou/uL (130-400); Platelet Morphology Comment Appears Decreased; RBC Distribution Width 17.1 % (11.5-14.5); Red Blood Cell (RBC) Count 2.64 mill/uL (4.70-6.10); White Blood Cell (WBC) Count 11.7 thou/uL (4.8-10.8)
[2019-07-04 05:21] VITALS: BMI 22.9
[2019-07-04] MEDS: Atenolol 25 MG TAB PO SCH ×2 (09:00→11:20)
[2019-07-04] MEDS: hydrALAZINE 10 MG TAB PO SCH ×3 (09:00→20:36)
[2019-07-04] MEDS ORDERED: Lisinopril 2.5 MG TAB PO SCH (09:00)
[2019-07-04] MEDS: Famotidine 20 MG TAB PO SCH (10:01)
[2019-07-04] MEDS: Ferrous Gluconate 324 MG TAB PO SCH (10:01)
[2019-07-04] MEDS: Allopurinol 300 MG TAB PO SCH (10:01)
[2019-07-04] MEDS: traMADol HCl 50 MG TAB PO PRN ×3 (10:02→23:00)
[2019-07-04] MEDS: Aspirin Chewable 81 MG TAB PO SCH (10:03)
[2019-07-04] MEDS ORDERED: Insulin Regular 300 UNITS/3 ML VIAL IVP SCH (12:15)
[2019-07-04] MEDS ORDERED: Dextrose 50% Abboject 50 ML SYRINGE SLOW IVP SCH (12:15)
--- NOTE | 2019-07-04 12:56 | PDOC.CPN ---
- Subjective Date: 07/04/19 Time: 12:54 Interval history: he developed afib last night. He was started on an amiodarone drip and he became bradycardic and converted to sinus rhythm. His drip had to be stopped due to bradycardia. - Review of Systems General: denies: fever/chills, weight/appetite/sleep changes, night sweats, fatigue Respiratory: denies: cough, congestion, shortness of breath, exercise intolerance Cardiovascular: reports: chest pain. denies: palpitation, edema, paroxysmal nocturnal dyspnea, orthopnea Gastrointestinal: denies: nausea, vomiting, diarrhea, constipation, abd pain, GI bleeding Musculoskeletal: denies: pain, tenderness, stiffness, swelling, arthritis/ arthralgias Neurological: denies: numbness, syncope, seizure, weakness - Objective Allergies/Adverse Reactions: Allergies Allergy/AdvReac Type Severity Reaction Status Date / Time clopidogrel [From Plavix] Allergy Verified 06/29/19 21:05 meperidine [From Demerol] Allergy cramps Verified 06/29/19 21:05 Visit Medications: Current Medications Acetaminophen (Tylenol) 650 mg PO Q6H PRN PRN Reason: Headache/Fever Or Mild Pain Last Admin: 07/04/19 01:23 Dose: 650 mg Al Hydroxide/Mg Hydroxide (Maalox) 30 ml PO Q4H PRN PRN Reason: Indigestion Allopurinol (Zyloprim) 300 mg PO DAILY [facility] Last Admin: 07/04/19 10:01 Dose: 300 mg Aspirin (Aspirin Chewable) 81 mg PO DAILY [facility] Last Admin: 07/04/19 10:03 Dose: 81 mg Atenolol (Tenormin) 12.5 mg PO DAILY [facility] Last Admin: 07/04/19 11:20 Dose: 12.5 mg Atorvastatin Calcium (Lipitor) 40 mg PO HS [facility] Last Admin: 07/03/19 20:30 Dose: 40 mg Bisacodyl (Dulcolax) 10 mg PO Q12H PRN PRN Reason: Constipation Bisacodyl (Dulcolax) 10 mg DC Q12H PRN PRN Reason: Constipation Colchicine (Colchicine) 0.6 mg PO DAILY [facility] Last Admin: 07/04/19 11:20 Dose: 0.6 mg Dextrose/Water (Dextrose 50%) 25 gm SLOW IVP NOW [facility] Stop: 07/04/19 14:15 Famotidine (Pepcid) 20 mg PO DAILY [facility] Last Admin: 07/04/19 10:01 Dose: 20 mg Ferrous Gluconate (Fergon) 324 mg PO DAILY [facility] Last Admin: 07/04/19 10:01 Dose: 324 mg Guaifenesin/Dextromethorphan (Robitussin Dm) 15 ml PO Q4H PRN PRN Reason: Cough Hydralazine HCl (Apresoline) 10 mg SLOW IVP Q6H PRN PRN Reason: To Maintain SBP< 140mmHG Hydralazine HCl (Apresoline) 10 mg PO TID [facility] Last Admin: 07/04/19 09:00 Dose: Not Given Amiodarone HCl 450 mg/Miscellaneous Medication 1 each/ Dextrose/Water 259 mls @ 0 mls/hr IVPB INF [facility]; Protocol Last Admin: 07/04/19 01:24 Dose: 259 mls Insulin Human Regular (Humulin R) 10 units IVP NOW [facility] Stop: 07/04/19 14:15 Ondansetron HCl (Zofran) 4 mg IVP Q6H PRN PRN Reason: Nausea/Vomiting Last Admin: 07/02/19 10:58 Dose: 4 mg Promethazine HCl (Phenergan) 6.25 mg IM Q4H PRN PRN Reason: Nausea/Vomiting Sodium Chloride (Flush - Normal Saline) 10 ml IVF Q12HR [facility] Last Admin: 07/04/19 10:03 Dose: 10 ml Sodium Chloride (Flush - Normal Saline) 10 ml IVF PRN PRN PRN Reason: Saline Flush Tamsulosin HCl (Flomax) 0.4 mg PO HS [facility] Last Admin: 07/03/19 20:31 Dose: 0.4 mg Tramadol HCl (Ultram) 50 mg PO Q6H PRN PRN Reason: Pain Last Admin: 07/04/19 10:02 Dose: 50 mg Vital Signs & Weight: Vital Signs Temp Pulse Pulse Pulse BP BP BP 07/04/19 11:20 61 115/43 L 07/04/19 09:09 76 69 134/54 L 134/51 L 07/04/19 09:00 62 115/43 L 07/04/19 04:00 99.7 F H 07/04/19 01:00 100.9 F H Pulse Ox Pulse Ox 07/04/19 11:20 07/04/19 09:09 98 100 07/04/19 09:00 07/04/19 04:00 07/04/19 01:00 Weight 164 lb 7.437 oz - Physical Exam General: alert & oriented x3, no apparent distress HEENT: normocephaly Neck: supple neck, midline trachea Cardiac: regular rate and rhythm, no murmur Lungs: clear to auscultation, no wheeze, rales, rhonchi Neuro: grossly intact Abdomen: active bowel sounds, soft, non-tender Extremities: no edema Skin: clear Musculoskeletal: no pain - Labs Result Diagrams: 07/04/19 04:10 07/04/19 03:30 Troponin/CKMB Troponin I Less than 0.010 ng/mL (< 0.028) 06/29/19 21:04 - Telemetry Sinus rhythms and dysrhythmias: sinus rhythm Supraventricular conduction: atrial fibrillation - Assessment/Plan Assessment/Plan: 1. Multivessel CAD 2. S/P CABG 3. THOMPSON to LAD, SVg to RPDA, SVG to OM1 4. DMT2 5. CKD 6. Anemia of chronic disease. 7. Post op afib. PLAN: - Increase PT as tolerated. - ASA and statin for life - Hold ACEI due to elevated creatinine. - Will do low dose amiodarone at 100 mg BID for his afib. If he continues to be bradycardic with this dose will discontinue. - Monitor In ICU overnight. - Critical Care Time Critical care time (mins): 30
--- NOTE | 2019-07-04 16:35 | PRG ---
DATE OF SERVICE: 07/04/2019 SERVICE: Pulmonary medicine INTERVAL HISTORY: The patient is doing really well from respiratory standpoint. Overnight, he went into atrial fibrillation with RVR. He denies any current chest discomfort nausea, vomiting, fevers, or chills. Otherwise, there has been no change to his condition. He was placed on amiodarone. He became bradycardic when he converted back to sinus rhythm. Ultimately, this was interrupted. He is feeling fine at this point. When he went into atrial fibrillation, he got lightheaded. PHYSICAL EXAMINATION: VITAL SIGNS: Afebrile with a T-max of 100.9. Pulse 64. Blood pressure 119/49 respirations 19, saturation 99%, currently on room air. GENERAL: The patient is awake and alert, in no apparent distress. LUNGS: Decent air entry. No prolonged expiratory phase or wheezing appreciated. HEART: Normal rate regular. ABDOMEN: Soft, nontender, nondistended. Bowel sounds are positive. MUSCULOSKELETAL: No cyanosis or clubbing. No pitting in the bilateral lower extremities. NEUROLOGIC: Grossly nonfocal. LABORATORY DATA: WBC 11.7, hemoglobin 8.7 and downtrending gently. Platelets 129,000. INR 1.4. Creatinine 2.27 and roughly stable, BUN 42. Potassium 5.2 and stable, chloride 112,000. Liver function studies are otherwise unremarkable. Vitamin B12 and folate are within normal limits. ASSESSMENT: 1. Acute hypoxic respiratory failure, resolved. 2. Coronary artery disease, status post coronary artery bypass graft, postop day 3. 3. Macrocytic anemia. 4. Atrial fibrillation, paroxysmal, returned to sinus rhythm. DISCUSSION AND PLAN: The patient is doing fine from respiratory standpoint. His B12 and folate fall within normal limits. His hemoglobin is downtrending. We will repeat H and H tomorrow morning at the very least. Pulmonary will continue to follow in this location but if he transition to the floor, I will sign off. Please call with additional questions or concerns through time. Job ID: [id number]
--- NOTE | 2019-07-04 17:32 | PDOC.HOSPP ---
- Subjective Encounter Date: 07/04/19 Encounter Time: 14:00 Subjective: Patient went into afib overnight with heart rate in the 110's. He was placed on amiodarone drip. Patient then became bradycardic with heart rate in the 40's so amiodarone drip stopped. Patient did have some dizziness at the time. He ambulated around the hallway today with no chest pain or shortness of breath. No other complaints today. - Objective Vital Signs & Weight: Vital Signs (12 hours) Temp Pulse Pulse Pulse BP BP BP 07/04/19 16:00 98.4 F 07/04/19 15:50 61 158/60 H 07/04/19 15:42 74 67 158/60 H 128/50 L 07/04/19 12:00 98.1 F 07/04/19 11:20 61 115/43 L 07/04/19 09:09 76 69 134/54 L 134/51 L 07/04/19 09:00 62 115/43 L 07/04/19 08:00 98.2 F Pulse Ox Pulse Ox Pulse Ox 07/04/19 16:00 07/04/19 15:50 07/04/19 15:42 100 98 07/04/19 12:00 07/04/19 11:20 07/04/19 09:09 98 100 07/04/19 09:00 07/04/19 08:00 98 Weight Weight 164 lb 7.437 oz Most Recent Monitor Data Heart Rate from ECG 66 NIBP 120/47 NIBP BP-Mean 71 Respiration from ECG 19 SpO2 99 I&O: 07/03/19 07/04/19 07/05/19 06:59 06:59 06:59 Intake Total 1259.5 1196.6 617.4 Output Total 1057 575 250 Balance 202.5 621.6 367.4 Result Diagrams: 07/04/19 04:10 07/04/19 03:30 Hospitalist ROS - Review of Systems Constitutional: denies: fever, chills Respiratory: denies: cough, dry, shortness of breath Gastrointestinal: denies: nausea - Medication Medications: Active Medications Generic Name Dose Route Start Last Admin Trade Name Freq PRN Reason Stop Dose Admin Acetaminophen 650 mg 07/01/19 14:02 07/04/19 01:23 Tylenol PO 650 mg Q6H PRN Administration Headache/Fever Or Mild Pain Allopurinol 300 mg 07/03/19 09:00 07/04/19 10:01 Zyloprim PO 300 mg DAILY [facility] Administration Aspirin 81 mg 07/02/19 09:00 07/04/19 10:03 Aspirin Chewable PO 81 mg DAILY [facility] Administration Atenolol 12.5 mg 07/03/19 09:00 07/04/19 11:20 Tenormin PO 12.5 mg DAILY [facility] Administration Atorvastatin Calcium 40 mg 07/02/19 21:00 07/03/19 20:30 Lipitor PO 40 mg HS [facility] Administration Colchicine 0.6 mg 07/03/19 09:00 07/04/19 11:20 Colchicine PO 0.6 mg DAILY [facility] Administration Famotidine 20 mg 07/03/19 09:00 07/04/19 10:01 Pepcid PO 20 mg DAILY [facility] Administration Ferrous Gluconate 324 mg 07/03/19 09:00 07/04/19 10:01 Fergon PO 324 mg DAILY [facility] Administration Hydralazine HCl 10 mg 07/02/19 21:00 07/04/19 15:50 Apresoline PO 10 mg TID [facility] Administration Ondansetron HCl 4 mg 07/01/19 14:02 07/02/19 10:58 Zofran IVP 4 mg Q6H PRN Administration Nausea/Vomiting Sodium Chloride 10 ml 07/02/19 09:00 07/04/19 10:03 Flush - Normal Saline IVF 10 ml Q12HR [facility] Administration Tamsulosin HCl 0.4 mg 07/01/19 21:00 07/03/19 20:31 Flomax PO 0.4 mg HS [facility] Administration Tramadol HCl 50 mg 07/04/19 08:10 07/04/19 16:22 Ultram PO 50 mg Q6H PRN Administration Pain - Exam General Appearance: NAD, awake alert Eye: PERRL, anicteric sclera ENT: normocephalic atraumatic, no oropharyngeal lesions Neck: supple, no JVD Heart: RRR, no murmur, no gallops, no rubs Respiratory: CTAB, no wheezes, no rales, no ronchi Gastrointestinal: soft, non-tender, non-distended, normal bowel sounds Extremities: no cyanosis, no clubbing, no edema Skin: normal turgor, no lesions, no rashes Neurological: cranial nerve grossly intact, normal sensation to touch, no focal deficits, no new deficit Musculoskeletal: normal tone, normal strength, no muscle wasting Psychiatric: normal affect, normal behavior, A&O x 3, oriented to person Hosp A/P - Plan This is an 84 year old male with past medical history hypertension, CAD, diabetes, CKD who presented to the hospital after CABG. Currently still in the CCU CAD S/p CABG POD3 Atrial fibrillation -s/p drain removal. Was on amiodarone drip overnight, transition to 100 mg bid per cardiology for afib - continue aspirin and statin, hold eric inhibitor - chest Xray shows no acute disease Hyperkalemia- improving - potassium 5.2, will give insulin and dextrose and repeat K level tomorrow CKD - creatinine 2.18, at baseline Macrocytic anemia - Hb around 8, B12 and folate normal Constipation - laxatives prn Gout - colchicine and allopurinol Dispo: monitor overnight in ICU on amiodarone DVT prophylaxis: per CT surgery
[2019-07-04] MEDS: Amiodarone 200 MG TAB PO SCH (20:21)
[2019-07-04] MEDS: Atorvastatin Calcium 40 MG TAB PO SCH (20:21)
[2019-07-04] MEDS: Tamsulosin HCl 0.4 MG CAP PO SCH (20:21)
[2019-07-04] MEDS ORDERED: Amiodarone 200 MG TAB PO SCH (21:00)
[2019-07-05 04:40] LABS: #Eosinphils 0.1 thou/uL (0.0-0.7); #Lymphocytes 1.1 thou/uL (1.20-3.40); #Monocytes 0.8 thou/uL (0.11-0.59); #Neutrophils 7.6 thou/uL (1.40-6.50); %Basophils 0.2 % (0.0-1.0); %Eosinophils 0.7 % (0.0-10.0); %Lymphocytes 11.6 % (21.0-51.0); %Monocytes 8.6 % (0.0-10.0); Hemoglobin 8.1 g/dL (14.0-18.0); Mean Corpuscular HGB CONC 32.1 g/dL (32.0-36.0); Mean Corpuscular Hemoglobin 33.8 pg (27.0-31.0); Platelet Count 131 thou/uL (130-400); RBC Distribution Width 16.7 % (11.5-14.5); White Blood Cell (WBC) Count 9.6 thou/uL (4.8-10.8)
[2019-07-05 05:00] LABS: ALT (SGPT) Less than 7 U/L (8-55); AST (SGOT) 14 U/L (5-34); Albumin 2.8 g/dL (3.4-4.8); Alkaline Phosphatase 75 U/L (40-110); Anion Gap 9 mmol/L (10-20); BUN (Urea Nitrogen) 49 mg/dL (8.4-25.7); Bilirubin, Total 0.5 mg/dL (0.2-1.2); Calc. Creatinine Clearance 25 mL/min (70-130); Calcium 8.4 mg/dL (7.8-10.44); Carbon Dioxide 23 mmol/L (23-31); Chloride 109 mmol/L (98-107); Estimated GFR-MDRD 31; Globulin 2.5 g/dL (2.4-3.5); Glucose 110 mg/dL (83-110); Protein, Total 5.3 g/dL (5.8-8.1); Sodium 136 mmol/L (136-145)
[2019-07-05] MEDS ORDERED: Bisacodyl 10 MG SUPP PR PRN (07:27)
[2019-07-05] MEDS ORDERED: Acetaminophen 325 MG TAB PO PRN (07:27)
[2019-07-05] MEDS ORDERED: Guaifenesin DM 100-10/5 ML UDCUP PO PRN (07:27)
[2019-07-05] MEDS ORDERED: Bisacodyl 5 MG TAB PO PRN (07:27)
[2019-07-05] MEDS ORDERED: Mineral Oil ENEMA PR PRN (07:27)
[2019-07-05] MEDS ORDERED: Mag-Al 1200 mg/1200 mg/30 ML UDCUP PO PRN (07:27)
[2019-07-05] MEDS ORDERED: Nitroglycerin 0.4 MG TAB (25 Tab Bottle) SL PRN (07:27)
[2019-07-05] MEDS: Aspirin Chewable 81 MG TAB PO SCH (09:12)
[2019-07-05] MEDS: Amiodarone 200 MG TAB PO SCH ×2 (09:12→21:09)
[2019-07-05] MEDS: Ferrous Gluconate 324 MG TAB PO SCH (09:12)
[2019-07-05] MEDS: Tamsulosin HCl 0.4 MG CAP PO SCH ×2 (09:13→21:09)
[2019-07-05] MEDS: Famotidine 20 MG TAB PO SCH (09:13)
[2019-07-05] MEDS: Polyethylene Glycol 3350 17 GM Packet PO SCH (09:13)
--- NOTE | 2019-07-05 11:43 | CON ---
DATE OF CONSULTATION: HISTORY OF PRESENT ILLNESS: Mr. Caballero is an 84-year-old black male with known history of chronic renal failure for hypertensive nephropathy, longstanding hypertension and admitted for chest pain. He has been followed up by his flight attendant ramp, Dr. Dex Guzman. In addition, he has seen his cardiothoracic surgeon. During this hospitalization, he underwent a CABG. He is doing well since that time. We are being consulted for his chronic renal failure. Creatinine is noted at 2.4. Last clinic visit, this was 2.27. The patient is doing well since the CABG. REVIEW OF SYSTEMS: No chest pain. No shortness of breath. No nausea. No vomiting. No diarrhea. No constipation. No productive cough. No fever or chills. No diarrhea. No headache. No dysuria. No hematochezia. No melena. No hematemesis. CURRENT MEDICATIONS: Show the followin. The patient is currently on acetaminophen 650 mg q.6 p.r.n. 2. He is on amiodarone 100 mg p.o. b.i.d. 3. Aspirin 81 mg daily. 4. Atorvastatin 40 mg tablet at bedtime. 5. Colchicine 0.6 mg daily. 6. Famotidine 20 mg daily. 7. Ferrous sulfate 324 mg once a day. 8. Nitroglycerin 0.4 mg sublingual q.5 minutes p.r.n. 9. Tamsulosin 0.4 mg daily. 10. Tramadol p.r.n. PAST MEDICAL HISTORY: 1. Coronary artery disease. 2. Hypertension. 3. GERD. 4. DJD. 5. Jawbone tumor in remission. 6. Peripheral vascular disease. 7. Chronic renal failure for hypertensive nephropathy. PAST SURGICAL HISTORY: Status post right rotator cuff surgery, status post jawbone resection, status post right wrist surgery with pinning, status post cardiac cath with coronary artery stent placement, status post upper and lower GI endoscopy, recently status post CABG. SOCIAL HISTORY: The patient is a retired government worker, work in [place] for 30 years. Currently lives in [place]. Education, 12th grade. He is a , smoked for 10 years one pack a day. Alcohol, none. No IV drug abuse. Denies any blood transfusion. , one child. ALLERGIES: DEMEROL AND PLAVIX. TRAUMA: None. IMMUNIZATIONS: Up-to-date. HOSPITALIZATIONS: Please see past medical history. FAMILY HISTORY: No family history of ESRD. PHYSICAL EXAMINATION: VITAL SIGNS: Blood pressure is noted at 120/54, heart rate 68, respiratory rate 18, and pulse ox 99%. GENERAL: Noted to be awake, alert, and comfortable, not in distress. SKIN: Adequate turgor. HEENT: Slightly pale conjunctivae. Anicteric sclerae. NECK: No neck mass. No carotid bruits. No JVD. CHEST: No deformities. LUNGS: Clear breath sounds. HEART: Normal sinus rhythm. No murmur. No gallops. No rubs. ABDOMEN: Globular, soft, and nontender. No masses. EXTREMITIES: No edema. LABORATORY DATA: Laboratories of July 05, 2019; sodium 136, potassium 5, chloride 109, carbon dioxide 23, BUN 49, creatinine 2.41, GFR 31 mL/minute, calcium 8.4, albumin 2.4. White count 9.6 and hemoglobin 8.1. ASSESSMENT AND PLAN: 1. Chronic renal failure for hypertensive nephropathy, slightly higher creatinine at 2.41 with a baseline creatinine in the outpatient clinic of about 2.0. Continue current supportive care. If renal function will further worsen in the next few days, consider starting this patient on albumin infusion 25 g IV q.6. There is no indication for any dialytic intervention. 2. Anemia. Continue to observe p.r.n. blood transfusion. 3. Coronary artery disease, status post coronary artery bypass graft, doing well. Surgery is following. Job ID: [id number]
--- NOTE | 2019-07-05 15:42 | PDOC.HOSPP ---
- Subjective Encounter Date: 07/05/19 Encounter Time: 15:00 Subjective: Patient is doing well. He ambulated around the hallway without palpitations, dizziness or lightheadedness. Denied chest pain. Denies problems urinating although kidney number went up. - Objective Vital Signs & Weight: Vital Signs (12 hours) Temp Pulse Pulse Pulse Resp BP BP 07/05/19 14:24 74 69 141/62 H 136/64 07/05/19 11:09 97.8 F 66 17 07/05/19 09:45 96.5 F L 68 76 70 17 136/65 132/58 L 07/05/19 08:00 98.7 F 07/05/19 04:00 98.3 F BP BP Pulse Ox 07/05/19 14:24 07/05/19 11:09 135/65 96 07/05/19 09:45 132/60 97 07/05/19 08:00 99 07/05/19 04:00 Weight Weight 164 lb 7.437 oz Most Recent Monitor Data Heart Rate from ECG 66 NIBP 119/44 NIBP BP-Mean 69 Respiration from ECG 16 SpO2 99 I&O: 07/04/19 07/05/19 07/06/19 06:59 06:59 06:59 Intake Total 1196.6 947.4 300 Output Total 575 500 150 Balance 621.6 447.4 150 Result Diagrams: 07/05/19 04:20 07/05/19 04:20 Hospitalist ROS - Review of Systems Constitutional: denies: fever, chills Respiratory: denies: cough, dry, shortness of breath - Medication Medications: Active Medications Generic Name Dose Route Start Last Admin Trade Name Freq PRN Reason Stop Dose Admin Amiodarone HCl 100 mg 07/04/19 21:00 07/05/19 09:12 Cordarone PO 100 mg BID RHEA Administration Aspirin 81 mg 07/02/19 09:00 07/05/19 09:12 Aspirin Chewable PO 81 mg DAILY RHEA Administration Atorvastatin Calcium 40 mg 07/02/19 21:00 07/04/19 20:21 Lipitor PO 40 mg HS RHEA Administration Colchicine 0.6 mg 07/03/19 09:00 07/05/19 09:14 Colchicine PO 0.6 mg DAILY RHEA Administration Famotidine 20 mg 07/03/19 09:00 07/05/19 09:13 Pepcid PO 20 mg DAILY RHEA Administration Ferrous Gluconate 324 mg 07/03/19 09:00 07/05/19 09:12 Fergon PO 324 mg DAILY RHEA Administration Polyethylene Glycol 17 gm 07/05/19 09:00 07/05/19 09:13 Miralax PO 17 gm DAILY RHEA Administration Tamsulosin HCl 0.4 mg 07/01/19 21:00 07/04/19 20:21 Flomax PO 0.4 mg HS RHEA Administration Tamsulosin HCl 0.4 mg 07/05/19 09:00 07/05/19 09:13 Flomax PO 0.4 mg DAILY RHEA Administration - Exam General Appearance: NAD, awake alert Eye: PERRL, anicteric sclera ENT: normocephalic atraumatic, no oropharyngeal lesions Neck: supple, symmetric, no JVD, no thyromegaly Heart: RRR, no murmur, no gallops, no rubs Respiratory: CTAB, no wheezes, no rales, no ronchi Gastrointestinal: soft, non-tender, non-distended, normal bowel sounds, no hepatomegaly Extremities: no cyanosis, no clubbing, no edema Hosp A/P - Plan This is an 84 year old male with past medical history hypertension, CAD, diabetes, CKD who presented to the hospital after CABG. Currently still in the CCU CAD S/p CABG POD3 Atrial fibrillation -s/p drain removal. Continue amiodarone 100 mg bid - continue aspirin and statin, hold eric inhibitor - chest Xray shows no acute disease TRAV on CKD - creatinine increased to 2.41. Possibly may need some fluids - per nephro if continues to increase will try albumin infusion Macrocytic anemia - Hb around 8, B12 and folate normal Hyperkalemia-resolved Constipation - laxatives prn Gout - colchicine and allopurinol Dispo: monitor kidney function DVT prophylaxis: per CT surgery
[2019-07-05] MEDS: Atorvastatin Calcium 40 MG TAB PO SCH (21:09)
[2019-07-06 05:59] LABS: #Eosinphils 0.2 thou/uL (0.0-0.7); #Lymphocytes 0.9 thou/uL (1.20-3.40); #Monocytes 0.6 thou/uL (0.11-0.59); #Neutrophils 5.4 thou/uL (1.40-6.50); %Eosinophils 2.2 % (0.0-10.0); %Lymphocytes 12.4 % (21.0-51.0); %Monocytes 8.8 % (0.0-10.0); %Neutrophils 76.7 % (42.0-75.0); Hemoglobin 8.1 g/dL (14.0-18.0); Mean Corpuscular HGB CONC 32.4 g/dL (32.0-36.0); Mean Corpuscular Hemoglobin 33.8 pg (27.0-31.0); Mean Platelet Volume 8.2 fL (7.4-10.4); Platelet Count 151 thou/uL (130-400); RBC Distribution Width 16.3 % (11.5-14.5); Red Blood Cell (RBC) Count 2.39 mill/uL (4.70-6.10)
[2019-07-06 06:35] LABS: Anion Gap 9 mmol/L (10-20); BUN (Urea Nitrogen) 44 mg/dL (8.4-25.7); Calc. Creatinine Clearance 31 mL/min (70-130); Calcium 8.5 mg/dL (7.8-10.44); Carbon Dioxide 26 mmol/L (23-31); Chloride 110 mmol/L (98-107); Estimated GFR-MDRD 39; Glucose 105 mg/dL (83-110); Potassium 5.1 mmol/L (3.5-5.1); Sodium 140 mmol/L (136-145)
--- NOTE | 2019-07-06 09:26 | PRG ---
DATE OF SERVICE: 07/06/2019 SUBJECTIVE: Mr. Caballero is an 84-year-old black male with chronic renal failure and was admitted for chest pain. He underwent a cardiac surgery/CABG. We are consulted for his chronic renal failure. Renal function has been stabilizing. No other complaints today. No chest pain or shortness of breath. OBJECTIVE: VITAL SIGNS: Blood pressure 160/69, heart rate 73, respiratory rate 18, temperature 98.7, and pulse ox 98%. GENERAL: Noted to be awake, alert, and comfortable, not in distress. SKIN: Adequate turgor. HEENT: He has a slightly pale conjunctivae. Anicteric sclerae. NECK: No neck mass. No carotid bruits. No JVD. CHEST: No deformities. LUNGS: Clear breath sounds. HEART: Normal sinus rhythm. No murmur. No gallops. No rubs. ABDOMEN: Globular, soft, and nontender. No masses. EXTREMITIES: No edema. No deformities. MEDICATIONS: Medications of July 06, 2019, were reviewed. LABORATORY DATA: Laboratories of July 06, 2019; white count 7, hemoglobin 8.1. Sodium 140, potassium 4.1, chloride 110, carbon dioxide 26, BUN 44, creatinine 2.01, glucose 105, and calcium 8.5. ASSESSMENT AND PLAN: 1. Acute kidney injury/chronic renal failure, superimposed prerenal azotemia, much improved creatinine. His creatinine of 2.01 is now near baseline. Continue supportive care. There is no indication for any dialytic intervention. 2. Anemia continuing iron supplementation. P.r.n. blood transfusion. 3. Coronary artery disease, status post coronary artery bypass graft - doing well. Currently undergoing physical therapy. Possibility of a transfer to rehab. We will recheck basic metabolic and CBC in a.m. Job ID: [id number]
[2019-07-06] MEDS: Famotidine 20 MG TAB PO SCH (09:39)
[2019-07-06] MEDS: Aspirin Chewable 81 MG TAB PO SCH (09:39)
[2019-07-06] MEDS: Amiodarone 200 MG TAB PO SCH ×2 (09:39→20:12)
[2019-07-06] MEDS: Ferrous Gluconate 324 MG TAB PO SCH (09:39)
[2019-07-06] MEDS: Polyethylene Glycol 3350 17 GM Packet PO SCH (09:40)
[2019-07-06] MEDS: Tamsulosin HCl 0.4 MG CAP PO SCH ×2 (09:40→20:14)
--- NOTE | 2019-07-06 16:32 | PDOC.HOSPP ---
- Subjective Encounter Date: 07/06/19 Encounter Time: 13:00 Subjective: Patient is doing well. He ambulated twice around the hallway without shortness of breath or chest pain. But he still going into afib periodically and feels some palpitations. Otherwise no complaints. - Objective Vital Signs & Weight: Vital Signs (12 hours) Temp Pulse Pulse Pulse Resp BP BP 07/06/19 12:00 98.6 F 72 18 07/06/19 09:00 79 72 156/70 H 160/69 H 07/06/19 08:05 98.7 F 73 16 BP BP Pulse Ox Pulse Ox Pulse Ox 07/06/19 12:00 173/73 H 96 07/06/19 09:00 95 97 07/06/19 08:05 160/69 H 98 Weight Weight 172 lb 4.8 oz Most Recent Monitor Data Heart Rate from ECG 66 NIBP 119/44 NIBP BP-Mean 69 Respiration from ECG 16 SpO2 99 I&O: 07/05/19 07/06/19 07/07/19 06:59 06:59 06:59 Intake Total 947.4 980 Output Total 500 850 Balance 447.4 130 Result Diagrams: 07/06/19 05:30 07/06/19 05:30 Hospitalist ROS - Review of Systems Constitutional: denies: fever, chills Eyes: denies: vision change - Medication Medications: Active Medications Generic Name Dose Route Start Last Admin Trade Name Zurdoq PRN Reason Stop Dose Admin Amiodarone HCl 100 mg 07/04/19 21:00 07/06/19 09:39 Cordarone PO 100 mg BID RHEA Administration Aspirin 81 mg 07/02/19 09:00 07/06/19 09:39 Aspirin Chewable PO 81 mg DAILY RHEA Administration Atorvastatin Calcium 40 mg 07/02/19 21:00 07/05/19 21:09 Lipitor PO 40 mg HS RHEA Administration Colchicine 0.6 mg 07/03/19 09:00 07/06/19 09:40 Colchicine PO 0.6 mg DAILY RHEA Administration Famotidine 20 mg 07/03/19 09:00 07/06/19 09:39 Pepcid PO 20 mg DAILY RHEA Administration Ferrous Gluconate 324 mg 07/03/19 09:00 07/06/19 09:39 Fergon PO 324 mg DAILY RHEA Administration Polyethylene Glycol 17 gm 07/05/19 09:00 07/06/19 09:40 Miralax PO 17 gm DAILY RHEA Administration Tamsulosin HCl 0.4 mg 07/01/19 21:00 07/05/19 21:09 Flomax PO 0.4 mg HS RHEA Administration Tamsulosin HCl 0.4 mg 07/05/19 09:00 07/06/19 09:40 Flomax PO 0.4 mg DAILY RHEA Administration - Exam General Appearance: NAD, awake alert Eye: PERRL, anicteric sclera ENT: normocephalic atraumatic, no oropharyngeal lesions Neck: supple, symmetric, no JVD, no thyromegaly, no lymphadenopathy, no carotid bruit Heart: RRR, no murmur, no gallops, no rubs Respiratory: CTAB, no wheezes, no rales, no ronchi Gastrointestinal: soft, non-tender, non-distended, normal bowel sounds Extremities: no cyanosis, no clubbing, no edema Skin: normal turgor, no lesions, no rashes Neurological: cranial nerve grossly intact, normal sensation to touch, no focal deficits, no new deficit Musculoskeletal: normal tone, normal strength, no muscle wasting Psychiatric: normal affect, normal behavior, A&O x 3, oriented to person Hosp A/P - Plan This is an 84 year old male with past medical history hypertension, CAD, diabetes, CKD who presented to the hospital after CABG. Currently still in the CCU CAD S/p CABG POD3 Atrial fibrillation -s/p drain removal. Continue amiodarone 100 mg bid - continue aspirin and statin, hold eric inhibitor but consider resuming tomorrow if creatinine continues to downtrend - chest Xray shows no acute disease TRAV on CKD- resolved - creatinine down to 2.0 today which is baseline Macrocytic anemia - Hb around 8, B12 and folate normal Hyperkalemia-resolved Constipation - laxatives prn Gout - colchicine and allopurinol Dispo: continue to monitor heart rate DVT prophylaxis: per CT surgery
[2019-07-06] MEDS: Atorvastatin Calcium 40 MG TAB PO SCH (20:14)
[2019-07-07 05:44] LABS: #Eosinphils 0.2 thou/uL (0.0-0.7); #Lymphocytes 1.2 thou/uL (1.20-3.40); #Monocytes 0.6 thou/uL (0.11-0.59); #Neutrophils 4.5 thou/uL (1.40-6.50); %Basophils 0.5 % (0.0-1.0); %Eosinophils 2.8 % (0.0-10.0); %Lymphocytes 18.4 % (21.0-51.0); %Monocytes 9.3 % (0.0-10.0); Hemoglobin 8.3 g/dL (14.0-18.0); Mean Corpuscular HGB CONC 32.5 g/dL (32.0-36.0); Mean Corpuscular Hemoglobin 33.6 pg (27.0-31.0); Mean Platelet Volume 8.3 fL (7.4-10.4); Platelet Count 168 thou/uL (130-400); RBC Distribution Width 16.1 % (11.5-14.5); Red Blood Cell (RBC) Count 2.46 mill/uL (4.70-6.10); White Blood Cell (WBC) Count 6.5 thou/uL (4.8-10.8)
[2019-07-07 06:04] LABS: Anion Gap 10 mmol/L (10-20); BUN (Urea Nitrogen) 38 mg/dL (8.4-25.7); Calc. Creatinine Clearance 34 mL/min (70-130); Calcium 8.5 mg/dL (7.8-10.44); Carbon Dioxide 21 mmol/L (23-31); Chloride 113 mmol/L (98-107); Estimated GFR-MDRD 43; Glucose 100 mg/dL (83-110); Potassium 5.3 mmol/L (3.5-5.1); Sodium 139 mmol/L (136-145)
--- NOTE | 2019-07-07 09:15 | PRG ---
DATE OF SERVICE: 07/07/2019 SUBJECTIVE: Mr. Caballero is an 84-year-old black male with history of coronary artery disease, recently underwent CABG, and we are following him up for his acute kidney injury on top of his chronic renal failure. He had a superimposed prerenal azotemia, which is slowly improving overtime. No new complaints today. No chest pain or shortness of breath. OBJECTIVE: VITAL SIGNS: Blood pressure 169/71, heart rate 68, respiratory rate is 9, pulse ox 95% on room air, and temperature 98.6. GENERAL: Awake, alert, comfortable, not in overt distress. SKIN: Adequate turgor. HEENT: He has slightly pale conjunctivae. Anicteric sclerae. No neck mass. No carotid bruits. No JVD. CHEST: No deformities. LUNGS: Clear breath sounds. No wheezing. No crackles. HEART: Normal sinus rhythm. No murmurs. No gallops. No rubs. ABDOMEN: Globular, soft, and nontender. No masses. EXTREMITIES: No edema. No deformities. MEDICATIONS: Medications of July 07, 2019, reviewed. LABORATORY DATA: Laboratories of July 07, 2019: White count 6.5, hemoglobin 8.3. Sodium 139, potassium 4.2, carbon dioxide 21, BUN 38, creatinine 1.85, glucose 100, and calcium 8.5. ASSESSMENT AND PLAN: 1. Acute kidney injury - superimposed prerenal azotemia. Continue supportive care, slowly improving. 2. Chronic renal failure from hypertensive nephropathy. Creatinine is nearing baseline, currently at 1.85. There is no indication for any dialytic intervention with this patient. 3. Anemia. Continuing iron supplementation. Please note, the patient is status post coronary artery bypass grafting. Agree with planned discharge. We will follow up this patient in the [facility]al [facility]. I instructed him to call the office for followup. Job ID: [id number] MTDD
[2019-07-07] MEDS: Polyethylene Glycol 3350 17 GM Packet PO SCH (09:29)
[2019-07-07] MEDS: Amiodarone 200 MG TAB PO SCH (09:30)
[2019-07-07] MEDS: Famotidine 20 MG TAB PO SCH (09:30)
[2019-07-07] MEDS: Ferrous Gluconate 324 MG TAB PO SCH (09:30)
[2019-07-07] MEDS: Tamsulosin HCl 0.4 MG CAP PO SCH (09:30)
[2019-07-07] MEDS: Aspirin Chewable 81 MG TAB PO SCH (09:30)
[2019-07-07] MEDS ORDERED: Insulin Regular 300 UNITS/3 ML VIAL IVP SCH (12:00)
[2019-07-07] MEDS ORDERED: Dextrose 50% Abboject 50 ML SYRINGE SLOW IVP SCH (12:00)
--- NOTE | 2019-07-07 12:15 | PQF ---
GRETCHENELENI Dixon EVELYN, [facility] [id number] CLINICAL DOCUMENTATION IMPROVEMENT CLARIFICATION FORM: ICD-10 Updated PLEASE DO AN ADDENDUM TO THE PROGRESS NOTE WITH ANY DOCUMENTATION UPDATES OR ADDITIONS AND CARRY THROUGH TO DC SUMMARY. THANK YOU. DATE: 07/07/19 ATTN: Dr. Dewitt Please exercise your independent, professional judgment in responding to the clarification form. Clinical indicators are provided on the bottom of this form for your review Please check appropriate box(s): [ ] Acute on Chronic Renal Failure please specify Stage of CKD (see below) [ X] CKD without ARF/TRAV please specify Stage of CKD [ ] Other diagnosis [ ] Unable to determine In addition, please specify: Present on Admission (POA): [ X] Yes [ ] No [ ] Unable to determine National Kidney Foundation Guidelines for CKD Staging Stage I Kidney damage with normal or increased GFRGFR > 90 Stage IIKidney damage with mildly decreased GFRGFR 60-89 Stage III Kidney damage with moderately decreased GFRGFR 30-59 Stage IVKidney damage with severely decreased GFRGFR 16-29 Stage VKidney failureGFR<15 ESRDEnd Stage Renal DiseaseOn dialysis Acute Renal Failure/Acute Kidney Failure defined as: Increases in SCr by (>) 0.3 mg/dl within 48 hours OR- Increases in SCr by (>) 1.5 times baseline, known or presumed to have occurred within the prior 7 days OR- Urine volume < 0.5 ml/kg/hour for 6 hours (KDIGO supplement 2012 for RIFLE/RAJAN criteria) For continuity of documentation, please document condition throughout progress notes and discharge summary. Thank You. CLINICAL INDICATORS - SIGNS / SYMPTOMS / LABS / RESULTS AND LOCATION IN MR Abnormal labs--> LAB: 07/01 BUN 29, CREAT 1.95, GFRr 40; 07/01 BUN 25, CREAT 1.63 , GFR 49; 07/03 BUN 36, CREAT 2.18, GFR 35 07/04 BUN 42, CREAT 2.27, GFR 34 07/03 EVELYN: " CKD, CREAT 2.18, AT BASELINE" RISK FACTORS / RESULTS AND LOCATION IN MR Use of YEMI inhibitors, diuretics--> hctz 12.5 mg PO daily dc'd 06/30 and lisinopril 2.5 mg dc 07/04 per orders TREATMENTS / RESULTS AND LOCATION IN MR IV fluids--> 07/01-07/02 NS at 100; NS at 50 07/02 per orders Daily BMP 06/30 per orders Diuretic: hctz 12.5 mg dc'd 06/30 and ACEi: lisinopril 2.5 mg dc 07/04 per orders (This form is maintained as a part of the permanent medical record) 2015 [employer], [employer]. All Rights Reserved Alpa Caballero, RN, BSN, CCDS [email or web address]
--- NOTE | 2019-07-07 12:18 | DIS ---
DATE OF ADMISSION: 06/30/2019 DATE OF DISCHARGE: 07/07/2019 HOSPITAL COURSE: The patient was admitted on 06/30, where he underwent coronary artery bypass grafting, THOMPSON to LAD, saphenous vein graft to an OM and a PDA, receiving 2 units of packed red cells intraoperatively for a baseline hemoglobin of about 8 g. Postoperatively, he maintained the level of hemoglobin. He had his chest tubes removed on the day after surgery. Diuresis was avoided and even though this was done, his baseline creatinine increased from about 2 to 2.4. I then drifted back down to less than 2 without any specific treatment. He did have some AFib and was begun on low-dose amiodarone from which he converted, although did have a 2.9 second pause with conversion. He then had another episode of AFib and again converted spontaneously with a 3-second pause. He was asymptomatic. He will be discharged home today on amiodarone 200 a day and atorvastatin 20 at bedtime. He will also resume his home medications except he will not take his atenolol. Discharge and followup instructions have been given and I have contacted Dr. Guzman to consider an outpatient 30-day monitor. Job ID: [id number]
[2019-07-07 13:32] VITALS: BP 167/72; TEMP 99.1
== END 2019-07-07 13:38 | disposition home health service (06) | DRG 235 ==
LOC: ERS 14:25 → 2SE 18:47 → OBSVTOIN 06-30 13:45 → CCU 07-01 12:04 → 2NO 07-05 09:57
PROVIDERS: ADMIT Internal Medicine; ATTEND Internal Medicine
PROC: 30233N1 Transfusion of Nonautologous Red Blood Cells into Peripheral Vein, Percutaneous Approach (ICD-10-PCS; 2019-06-30)
PROC: 02100Z9 Bypass Coronary Artery, One Artery from Left Internal Mammary, Open Approach (ICD-10-PCS; principal; 2019-07-01)
PROC: 06BP4ZZ Excision of Right Saphenous Vein, Percutaneous Endoscopic Approach (ICD-10-PCS; 2019-07-01)
PROC: 5A1221Z Performance of Cardiac Output, Continuous (ICD-10-PCS; 2019-07-01)
PROC: 021109W Bypass Coronary Artery, Two Arteries from Aorta with Autologous Venous Tissue, Open Approach (ICD-10-PCS; 2019-07-01)
DX: I25.110 Atherosclerotic heart disease of native coronary artery with unstable angina pectoris (principal); J96.01 Acute respiratory failure with hypoxia; N17.9 Acute kidney failure, unspecified; I12.9 Hypertensive chronic kidney disease with stage 1 through stage 4 chronic kidney disease, or unspecified chronic kidney disease; D63.1 Anemia in chronic kidney disease; E78.5 Hyperlipidemia, unspecified; M10.9 Gout, unspecified; E87.5 Hyperkalemia; E78.00 Pure hypercholesterolemia, unspecified; N40.0 Benign prostatic hyperplasia without lower urinary tract symptoms; E11.22 Type 2 diabetes mellitus with diabetic chronic kidney disease; N18.9 Chronic kidney disease, unspecified; R00.1 Bradycardia, unspecified; K59.00 Constipation, unspecified; I48.91 Unspecified atrial fibrillation; Z95.5 Presence of coronary angioplasty implant and graft
CPT/HCPCS: 36415; 36416; 36430; 71045; 71046; 80048; 80053; 82607; 82746; 82805; 84484; 85025; 85610; 85730; 86850; 86900; 86901; 93005; 93010; 93798; 94760; J0282; J0690; J1100; J1642; J1644; J1815; J2001; J2250; J2405; J2440; J2704; J2720; J3010; J3370; J3475; J3480; J7070; P9016; P9045; S0017; S0028

== ENCOUNTER 2019-07-29 15:44 | Inpatient (IN) | payer MEDICARE, OTHER ==
[2019-07-29 17:37] LABS: #Basophils 0.1 thou/uL (0.0-0.2); #Eosinphils 0.5 thou/uL (0.0-0.7); #Monocytes 0.4 thou/uL (0.11-0.59); #Neutrophils 3.2 thou/uL (1.40-6.50); %Basophils 1.1 % (0.0-1.0); %Lymphocytes 19.9 % (21.0-51.0); %Monocytes 8.3 % (0.0-10.0); %Neutrophils 61.6 % (42.0-75.0); Hemoglobin 8.5 g/dL (14.0-18.0); Mean Corpuscular HGB CONC 32.5 g/dL (32.0-36.0); Mean Platelet Volume 8.3 fL (7.4-10.4); Platelet Count 169 thou/uL (130-400); RBC Distribution Width 15.8 % (11.5-14.5); Red Blood Cell (RBC) Count 2.49 mill/uL (4.70-6.10); White Blood Cell (WBC) Count 5.1 thou/uL (4.8-10.8)
[2019-07-29 17:59] LABS: ALT (SGPT) 21 U/L (8-55); AST (SGOT) 20 U/L (5-34); Albumin 3.6 g/dL (3.4-4.8); Alkaline Phosphatase 127 U/L (40-110); Anion Gap 14 mmol/L (10-20); BUN (Urea Nitrogen) 29 mg/dL (8.4-25.7); Bilirubin, Total 0.3 mg/dL (0.2-1.2); Calc. Creatinine Clearance 0 mL/min (70-130); Carbon Dioxide 18 mmol/L (23-31); Chloride 112 mmol/L (98-107); Estimated GFR-MDRD 22; Globulin 2.8 g/dL (2.4-3.5); Glucose 108 mg/dL (83-110); Lipase 16 U/L (8-78); MDiff Complete? YES; Macrocytosis SLIGHT = 6-15 cells (100X) (0-5/hpf); Ovalocytes SLIGHT = 2-5 cells (100X) (0-1/hpf); Platelet Morphology Comment Appears Adequate; Potassium 6.4 mmol/L (3.5-5.1); Protein, Total 6.4 g/dL (5.8-8.1); Schistocytes SLIGHT = 2-5 cells (100X) (0-1/hpf); Sodium 138 mmol/L (136-145)
[2019-07-29] MEDS ORDERED: Calcium Chloride 1 GM/10 ML Abboject SYRINGE ONE ×2 (18:25→18:27)
[2019-07-29] MEDS ORDERED: Dextrose 50% Abboject 50 ML SYRINGE ONE (18:25)
[2019-07-29] MEDS ORDERED: Insulin Regular 300 UNITS/3 ML VIAL ONE (18:25)
[2019-07-29] MEDS ORDERED: Sodium Bicarb 50 MEQ/50 ML VIAL ONE (18:25)
[2019-07-29] MEDS ORDERED: Albuterol Sulfate 2.5 mg/3 ml Neb ONE (19:03)
[2019-07-29 20:48] LABS: Potassium 6.2 mmol/L (3.5-5.1)
--- NOTE | 2019-07-29 20:56 | PDOC.HHP ---
Hospitalist HPI - History of Present Illness Abnormal Labwork History of Present Illness: Patient is an 84 year old male with PMH CKD, DM, atrial fibrillation, HTN, CAD w / recent CABG who presents after referral to ED after high potassium found on outpatient labwork. Patient sees Dr Conway of nephrology, reportedly baseline Cr is about 2.0. He had a recent CABG in June [address] George. He had hyperkalemia during that admission which resolved. Today he was referred for labwork by PCP Dr Santos, and results were concerning and patient referred to ED. In ED, labs repeated and BMP revealed Cr of 3.22, K of 6.4, ALP 127, Hgb 8.5. His BP was elevated with systolic in 190s. He was reportedly admitted previously for similar symptoms at [facility] and has had intermittent hyperkalemia frequently on chart review. He sees Dr Conway of nephrology and Dr Guzman of cardiology as outpatient, as well as Dr Santos PCP and Dr George for CABG follow up. Denies chest pain, shortness of breath, denies syncope and dizziness. he was given kayexelate in ED. denies any current symptoms. reported flushing and palpitations after drinking kayexelate, does not want to be given this anymore Hospitalist ROS - Review of Systems Constitutional: denies: fever, chills Eyes: denies: pain, vision change ENT: denies: ear pain, mouth swelling, throat pain Respiratory: denies: cough, shortness of breath Cardiovascular: denies: chest pain, palpitations Gastrointestinal: denies: nausea, vomiting, abdominal pain, diarrhea Genitourinary: denies: dysuria, frequency Musculoskeletal: denies: neck pain, shoulder pain Skin: denies: rash, lesions Neurological: denies: weakness, numbness All other systems reviewed; all pertinent +/- noted in HPI/Subj Hospitalist History - Past Medical History Other Medical History: HTN CAD DM hyperkalemia gout CAD - Past Surgical History Other Surgical History: CABG stent x 3 wrist surgery shoulder surgery - Family History Other Family History: reviewed and noncontributory - Social History Smoking Status: Never smoker Alcohol: reports: Rare Drugs: reports: none - Exam General Appearance: NAD, awake alert Eye: PERRL, anicteric sclera ENT: normocephalic atraumatic, no oropharyngeal lesions, moist mucosa Neck: supple, no JVD Heart: RRR, no murmur, no gallops, no rubs Respiratory: CTAB, no wheezes, no rales, no ronchi Gastrointestinal: soft, non-tender, non-distended, normal bowel sounds Extremities: no cyanosis, no clubbing, no edema Skin: no lesions, no rashes Neurological: cranial nerve grossly intact, normal sensation to touch, no focal deficits Musculoskeletal: normal tone, normal strength Psychiatric: normal affect, normal behavior, A&O x 3 Hospitalist Results - Labs Result Diagrams: 07/29/19 17:11 07/29/19 17:11 Lab results: WBC 5.1 thou/uL (4.8-10.8) 07/29/19 17:11 Hgb 8.5 g/dL (14.0-18.0) L 07/29/19 17:11 Hct 26.1 % (42.0-52.0) L 07/29/19 17:11 MCV 105.0 fL (78.0-98.0) H 07/29/19 17:11 Plt Count 169 thou/uL (130-400) 07/29/19 17:11 Neutrophils % 61.6 % (42.0-75.0) 07/29/19 17:11 Sodium 138 mmol/L (136-145) 07/29/19 17:11 Potassium 6.4 mmol/L (3.5-5.1) H 07/29/19 17:11 Chloride 112 mmol/L (98-107) H 07/29/19 17:11 Carbon Dioxide 18 mmol/L (23-31) L 07/29/19 17:11 BUN 29 mg/dL (8.4-25.7) H 07/29/19 17:11 Creatinine 3.22 mg/dL (0.7-1.3) H 07/29/19 17:11 Glucose 108 mg/dL (83-110) 07/29/19 17:11 Calcium 9.0 mg/dL (7.8-10.44) 07/29/19 17:11 Total Bilirubin 0.3 mg/dL (0.2-1.2) 07/29/19 17:11 AST 20 U/L (5-34) 12/05/19 17:11 ALT 21 U/L (8-55) 07/29/19 17:11 Alkaline Phosphatase 127 U/L (40-110) H 07/29/19 17:11 Serum Total Protein 6.4 g/dL (5.8-8.1) 07/29/19 17:11 Albumin 3.6 g/dL (3.4-4.8) 07/29/19 17:11 Lipase 16 U/L (8-78) 07/29/19 17:11 - EKG Interpretation EKG: sinus 98 bpm no peaked t waves no acute ST changes Hospitalist H&P A/P - Plan Plan: Patient is an 84 year old male with PMH above admitted for: # TRAV on CKD III - patient with baseline Cr which appears to be in 1.8-2.0 range , now Cr is 3.2 with hyperkalemia and metabolic acidosis, Dr Conway consulted from ED and recommended kayexelate and will follow with us in AM - admit to telemetry - recheck K now, in standalone form, can also attempt to collect labs in pedi tube or without tourniquette to rule out pseudohyperkalemia if persists - trend BMP - appreciate nephrology input Dr Conway, kayexelate given with flushing, will add to allergy list and will follow repeat labs to determine if further intervention needed tonight # hyperkalemia - likely related to renal function - treat as above # history of CAD and CABG last month - monitor on telemetry - continue home medications including amiodarone, statin, ASA # anemia - macrocytic, had b12 and folate checked last admission and normal, hold vitamins # DM - in chart, sugars good, check A1C in AM to confirm diagnosis
[2019-07-29] MEDS ORDERED: Acetaminophen 325 MG TAB PO PRN (22:02)
[2019-07-29] MEDS ORDERED: Ondansetron PF 4 MG/2 ML Vial IVP PRN (22:02)
[2019-07-29] MEDS ORDERED: Ondansetron ODT 4 MG TAB SL PRN (22:02)
[2019-07-29 22:21] VITALS: BMI 23.4
[2019-07-29] MEDS ORDERED: hydrALAZINE 20 MG/ML VIAL SLOW IVP PRN (23:33)
[2019-07-29] MEDS ORDERED: cloNIDine 0.1 MG TAB PO PRN (23:33)
[2019-07-29] MEDS: Sodium Chloride 0.9% 1,000 ML IV SCH (23:33)
[2019-07-30 04:46] LABS: #Eosinphils 0.3 thou/uL (0.0-0.7); #Lymphocytes 1.1 thou/uL (1.20-3.40); #Monocytes 0.5 thou/uL (0.11-0.59); #Neutrophils 2.9 thou/uL (1.40-6.50); %Basophils 0.8 % (0.0-1.0); %Eosinophils 6.7 % (0.0-10.0); %Lymphocytes 22.8 % (21.0-51.0); %Monocytes 10.5 % (0.0-10.0); %Neutrophils 59.2 % (42.0-75.0); Hemoglobin 7.9 g/dL (14.0-18.0); Hemoglobin A1c 4.9 % (4.0-6.0); Mean Corpuscular HGB CONC 31.9 g/dL (32.0-36.0); Mean Corpuscular Hemoglobin 33.3 pg (27.0-31.0); Mean Platelet Volume 8.8 fL (7.4-10.4); Platelet Count 144 thou/uL (130-400); RBC Distribution Width 15.9 % (11.5-14.5); Red Blood Cell (RBC) Count 2.37 mill/uL (4.70-6.10); White Blood Cell (WBC) Count 4.9 thou/uL (4.8-10.8)
[2019-07-30 05:04] LABS: Anion Gap 13 mmol/L (10-20); BUN (Urea Nitrogen) 27 mg/dL (8.4-25.7); Calc. Creatinine Clearance 22 mL/min (70-130); Calcium 9.1 mg/dL (7.8-10.44); Carbon Dioxide 21 mmol/L (23-31); Chloride 115 mmol/L (98-107); Estimated GFR-MDRD 28; Glucose 91 mg/dL (83-110); Phosphorus 3.4 mg/dL (2.3-4.7); Potassium 5.8 mmol/L (3.5-5.1); Sodium 143 mmol/L (136-145)
[2019-07-30] MEDS: Sodium Chloride 0.9% 1,000 ML IV SCH (07:27)
[2019-07-30] MEDS ORDERED: hydrALAZINE 10 MG TAB PO SCH (09:00)
[2019-07-30] MEDS: Amiodarone 200 MG TAB PO SCH (09:33)
[2019-07-30] MEDS: Aspirin Chewable 81 MG TAB PO SCH (09:33)
[2019-07-30] MEDS: Famotidine 20 MG TAB PO SCH (09:34)
[2019-07-30] MEDS: Senokot S 8.6-50 MG TAB PO SCH ×2 (09:34→21:33)
[2019-07-30] MEDS: Tamsulosin HCl 0.4 MG CAP PO SCH (09:35)
[2019-07-30] MEDS: Sodium Bicarbonate 150 MEQ in Dextrose 5% in Water 1,000 ML IV SCH ×2 (09:35→21:34)
--- NOTE | 2019-07-30 09:57 | CON ---
DATE OF CONSULTATION: HISTORY OF PRESENT ILLNESS: Mr. Caballero is an 84-year-old black male with chronic renal failure and was admitted for hyperkalemia and acute kidney injury. Initial potassium was noted at 6.6. He was given Kayexalate, calcium gluconate, insulin, and D50. This improved his potassium to a most recent value of 5.8. He was also found to have an acute kidney injury on top of his chronic renal failure and IV hydration was given, which improved the renal function. I did discuss the case with the hospitalist, Dr. Reynolds, and we will continue IV hydration with isotonic bicarbonate. This morning, he voices no new complaints - no chest pain or shortness of breath. On close questioning, this patient has had poor p.o. intake. He tells me that his appetite has decreased and this may explain the possibility that the patient may be on the dehydrated side that explain his high creatinine. REVIEW OF SYSTEMS: Decreased appetite. Decreased energy level. No chest pain. No shortness of breath. No syncopal episode. No productive cough. No fever or chills. No diarrhea. No constipation. No nausea. No vomiting. No headache. No abdominal pain. CURRENT MEDICATIONS: Currently on; 1. Aspirin 81 mg daily. 2. Cordarone 200 mg daily. 3. Lipitor 20 mg at bedtime. 4. Clonidine 0.1 mg q.4 p.r.n. 5. Hydralazine 10 mg p.o. daily. 6. Protonix 40 mg tablet once a day. 7. Flomax 0.4 mg tablet daily. PAST MEDICAL HISTORY: 1. Coronary artery disease. 2. Status post CHF, hyperlipidemia, BPH, chronic renal failure from hypertensive nephropathy, peripheral vascular disease, jaw bone tumor - in remission, DJD. PAST SURGICAL HISTORY: Status post cardiac cath, status post CABG, status post right rotator cuff surgery, status post jaw bone resection, status post right wrist surgery with pinning, status post coronary artery stent placement, status post upper and lower GI endoscopy. SOCIAL HISTORY: The patient currently lives in [place], but originally from [place]. He worked for 30 years. He worked with a [employer]. He is a . He smoked for 10 years, 1 pack a day. Alcohol none. No IV drug abuse. Denies any blood transfusion. He is , and one child. ALLERGIES: DEMEROL AND PLAVIX. TRAUMA: None. IMMUNIZATIONS: Up to date. HOSPITALIZATIONS: Please see past medical history. FAMILY HISTORY: No family history of ESRD. PHYSICAL EXAMINATION: VITAL SIGNS: Blood pressure is 173/75, heart rate 58, respiratory rate 16, temperature 97.7, pulse ox 97%. GENERAL: Noted to be awake, alert, comfortable, and not in distress. SKIN: Adequate turgor. HEENT: Pinkish conjunctivae. Anicteric sclerae. No neck mass. No carotid bruits. No JVD. CHEST: No deformities. LUNGS: Clear breath sounds. No wheezing. No crackles. HEART: Normal sinus rhythm. No murmur. No gallops. No rubs. ABDOMEN: Globular, soft, nontender. No masses. EXTREMITIES: No edema. No deformities. NEUROLOGIC: Awake, oriented to 3 spheres. Moving all extremities. No tremors. No asterixis. LABORATORY DATA: Laboratories of July 30, 2019; white count 4.9, hemoglobin 7.9, hematocrit 24.8. Sodium 143, potassium 5.8, chloride 115, carbon dioxide 21, BUN 27, creatinine 2.7, calcium 9.1, phosphorus 3.4. ASSESSMENT AND PLAN: 1. Acute kidney injury - I suspect a hemodynamically-mediated renal dysfunction with his history of decreased p.o. intake. Agree with empiric volume repletion. Please note creatinine is already improving with IV hydration. I do not see any indication for any dialytic intervention. 2. Chronic renal failure - secondary to hypertensive nephropathy. Continue to optimize hemodynamics. Again, as previously mentioned, no indication for any dialysis. 3. Anemia. We will start Epogen and iron supplementation with this patient. 4. Hypertension. We will adjust BP medications. Consider increasing hydralazine to 50 mg tablet t.i.d. 5. Recheck base met and CBC in a.m. Job ID: [id number]
[2019-07-30] MEDS ORDERED: EPOETIN ALFA-EPBX (ESRD) 4,000 UNIT/ML VIAL SC SCH (12:00)
[2019-07-30] MEDS ORDERED: hydrALAZINE 25 MG TAB PO SCH ×2 (15:00→21:00)
[2019-07-30] MEDS: hydrALAZINE 25 MG TAB PO SCH ×2 (15:49→21:30)
[2019-07-30] MEDS: Ferrous Sulfate 325 MG TAB PO SCH (16:48)
--- NOTE | 2019-07-30 20:55 | PDOC.HOSPP ---
- Subjective Encounter Date: 07/30/19 Encounter Time: 14:00 Subjective: Patient seen and examined for abn labs. Feeling better. No CP. No new complaints. No overnight events - Objective Vital Signs & Weight: Vital Signs (12 hours) Temp Pulse Resp BP Pulse Ox 07/30/19 15:30 98.0 F 48 L 18 146/67 H 96 07/30/19 11:17 97.5 F L 49 L 20 154/92 H 99 Weight Weight 245 lb 9.6 oz I&O: 07/29/19 07/30/19 07/31/19 06:59 06:59 06:59 Intake Total 240 1820 Balance 240 1820 Result Diagrams: 07/31/19 04:44 07/31/19 04:44 EKG Reviewed by me: Yes (Tele SR) Hospitalist ROS - Review of Systems Cardiovascular: denies: chest pain, palpitations, orthopnea, paroxysmal noc. dyspnea, edema, light headedness, other Gastrointestinal: denies: nausea, vomiting, abdominal pain, diarrhea, constipation, melena, hematochezia, other - Medication Medications: Active Medications Generic Name Dose Route Start Last Admin Trade Name Freq PRN Reason Stop Dose Admin Amiodarone HCl 200 mg 07/30/19 09:00 07/30/19 09:33 Cordarone PO 200 mg DAILY RHEA Administration Aspirin 81 mg 07/30/19 09:00 07/30/19 09:33 Aspirin Chewable PO 81 mg DAILY RHEA Administration Clonidine 0.1 mg 07/29/19 23:33 07/30/19 04:02 Catapres PO 0.1 mg Q4H PRN Administration SBP > 160, use second Epoetin Rafael-epbx 7,500 unit 07/30/19 12:00 07/30/19 13:34 Retacrit SC 7,500 unit Q7D RHEA Administration Famotidine 20 mg 07/30/19 09:00 07/30/19 09:34 Pepcid PO 20 mg DAILY RHEA Administration Ferrous Sulfate 325 mg 07/30/19 17:00 07/30/19 16:48 Feosol PO 325 mg BID-WM RHEA Administration Hydralazine HCl 10 mg 07/29/19 23:33 07/30/19 00:12 Apresoline SLOW IVP 10 mg Q6H PRN Administration SBP GREATER THAN 160 Hydralazine HCl 50 mg 07/30/19 15:00 07/30/19 15:49 Apresoline PO 50 mg TID RHEA Administration Sodium Bicarbonate 150 meq/ 1,150 mls @ 100 mls/hr 07/30/19 08:45 07/30/19 09 :35 Dextrose/Water IV 1,150 mls .[id number] RHEA Administration Senna/Docusate Sodium 1 tab 07/30/19 09:00 07/30/19 09:34 Senokot S PO Not Given BID RHEA Tamsulosin HCl 0.4 mg 07/30/19 09:00 07/30/19 09:35 Flomax PO 0.4 mg DAILY RHEA Administration - Exam General Appearance: NAD Heart: RRR, no gallops, no rubs, normal peripheral pulses Respiratory: CTAB, no rales, no ronchi, normal chest expansion Gastrointestinal: soft, non-tender, normal bowel sounds, no guarding, no rigidity Extremities: no cyanosis, no clubbing, no edema Neurological: normal sensation to touch, no weakness, no focal deficits, no new deficit Psychiatric: normal affect, A&O x 3 Hosp A/P - Plan out of bed/ambulate TRAV on CKD III Hyperkalemia CAD s/p recent CABG Par Afib DM2 HTN PLAN: Start IVF with bicarb - I d/w Dr Conway Hold Nephrotoxic meds Resume Eliquis at low dose Resume other home meds Reduce Cardizem dose due to bradycaria AM labs
[2019-07-30] MEDS ORDERED: Atorvastatin Calcium 20 MG TAB PO SCH (21:00)
[2019-07-30] MEDS: Apixaban 2.5 MG TAB PO SCH (21:32)
[2019-07-31] MEDS: Sodium Bicarbonate 150 MEQ in Dextrose 5% in Water 1,000 ML IV SCH (04:00)
[2019-07-31 04:58] LABS: #Basophils 0.1 thou/uL (0.0-0.2); #Eosinphils 0.4 thou/uL (0.0-0.7); #Lymphocytes 1.2 thou/uL (1.20-3.40); #Monocytes 0.4 thou/uL (0.11-0.59); #Neutrophils 2.6 thou/uL (1.40-6.50); %Basophils 1.2 % (0.0-1.0); %Eosinophils 8.2 % (0.0-10.0); %Lymphocytes 26.8 % (21.0-51.0); %Monocytes 8.2 % (0.0-10.0); %Neutrophils 55.6 % (42.0-75.0); Hemoglobin 7.9 g/dL (14.0-18.0); Mean Corpuscular HGB CONC 32.4 g/dL (32.0-36.0); Mean Corpuscular Hemoglobin 33.8 pg (27.0-31.0); Mean Platelet Volume 8.3 fL (7.4-10.4); Platelet Count 137 thou/uL (130-400); RBC Distribution Width 15.8 % (11.5-14.5); Red Blood Cell (RBC) Count 2.32 mill/uL (4.70-6.10); White Blood Cell (WBC) Count 4.6 thou/uL (4.8-10.8)
[2019-07-31 05:15] LABS: Anion Gap 12 mmol/L (10-20); BUN (Urea Nitrogen) 24 mg/dL (8.4-25.7); Calc. Creatinine Clearance 38 mL/min (70-130); Calcium 8.4 mg/dL (7.8-10.44); Carbon Dioxide 23 mmol/L (23-31); Chloride 110 mmol/L (98-107); Estimated GFR-MDRD 32; Glucose 110 mg/dL (83-110); Magnesium 1.7 mg/dL (1.6-2.6); Phosphorus 3.6 mg/dL (2.3-4.7); Potassium 4.7 mmol/L (3.5-5.1); Sodium 140 mmol/L (136-145)
[2019-07-31] MEDS ORDERED: Folic Acid 1 MG TAB PO SCH (09:00)
[2019-07-31] MEDS ORDERED: Atenolol 25 MG TAB PO SCH (09:00)
[2019-07-31] MEDS: Tamsulosin HCl 0.4 MG CAP PO SCH (09:20)
[2019-07-31] MEDS: Famotidine 20 MG TAB PO SCH (09:20)
[2019-07-31] MEDS: Ferrous Sulfate 325 MG TAB PO SCH (09:20)
[2019-07-31] MEDS: hydrALAZINE 25 MG TAB PO SCH (09:21)
[2019-07-31] MEDS: Apixaban 2.5 MG TAB PO SCH (09:21)
[2019-07-31] MEDS: Amiodarone 200 MG TAB PO SCH (09:21)
[2019-07-31] MEDS: Aspirin Chewable 81 MG TAB PO SCH (09:21)
[2019-07-31] MEDS: Senokot S 8.6-50 MG TAB PO SCH (09:21)
--- NOTE | 2019-07-31 10:04 | PRG ---
DATE OF SERVICE: 07/31/2019 SERVICE: Renal Medicine. SUBJECTIVE: Mr. Caballero is an 84-year-old black male, who was status post CABG and was admitted for acute kidney injury with hyperkalemia. His acute kidney injury is much improved with IV hydration. In addition, the patient's hyperkalemia is also much improved. No new complaints today. No chest pain or shortness of breath. OBJECTIVE: VITAL SIGNS: Blood pressure 139/64, heart rate 64, respiratory rate 20, temperature 98, and pulse ox 97%. GENERAL: Awake, alert, comfortable, not in distress. SKIN: Adequate turgor. HEENT: Slightly pale conjunctivae. Anicteric sclerae. NECK: No neck mass. No carotid bruits. No JVD. CHEST: No deformities. LUNGS: Clear breath sounds. No wheezing. No crackles. HEART: Normal sinus rhythm. No murmur. No gallops. No rubs. ABDOMEN: Globular, soft, and nontender. EXTREMITIES: No edema. MEDICATIONS: Medications of July 31, 2019, reviewed. LABORATORY DATA: Laboratories of July 31, 2019; white count 4.6, hemoglobin 7.9. Sodium 140, potassium 4.7, chloride 110, carbon dioxide 23, BUN 24, creatinine 2.36, GFR 32 mL/minutes, phosphorus 3.6, and magnesium 1.7. ASSESSMENT AND PLAN: 1. Acute kidney injury - superimposed hemodynamically-mediated renal dysfunction much improved with IV hydration. The patient was counseled on increasing his p.o. and fluid intake. 2. Anemia, currently on weekly Epogen and iron supplementation. 3. Hypertension, much improved with adjustment of the hydralazine. Agree with current management. Consider for discharge. We will follow this patient at the [facility]. Job ID: [id number]
[2019-07-31 11:51] VITALS: BP 146/95; TEMP 97.6
--- NOTE | 2019-07-31 13:17 | DIS ---
DATE OF ADMISSION: 07/29/2019 DATE OF DISCHARGE: 07/31/2019 DISCHARGE DISPOSITION: Home. FOLLOWUP: 1. Follow up with primary care physician, Dr. Ángel Carlos in 1 week. 2. Follow up with primary underwriting technician, Dr. Guzman on August 12, 2019. 3. Follow up with Nephrology, Dr. Conway. Basic metabolic profile after 3 days is recommended. Primary care physician advised to follow. DISCHARGE MEDICATIONS: Same as admission medications. The patient was advised to reduce Eliquis to 2.5 mg b.i.d. The patient is an 84-year-old with a baseline creatinine over 1.5. The patient was seen and examined on the day of discharge. Denies any new complaints. SIGNIFICANT LABORATORY DATA: Potassium at discharge is 4.7, it was 6.6 with a creatinine 3.22 on admission. His creatinine at discharge is 2.36. WBC 5.1 with hemoglobin 8.5, platelet of 169. INPATIENT FORENSIC MANAGER: Nephrology, Dr. Conway. BRIEF HOSPITAL COURSE: The patient is an 84-year-old male with recent coronary artery bypass grafting and CKD, presented to the hospital with abnormal lab work. He was found to have potassium of 6.6 with a creatinine 3.22. Please refer to the history and physical for further details. The patient was admitted to the hospital with a diagnosis of acute kidney injury with severely elevated potassium. He received albuterol with IV fluids, Kayexalate, lactulose, sodium bicarbonate, insulin D50 and calcium chloride in the emergency room. He was seen by Nephrology, Dr. Conway. He was started on sodium bicarbonate drip. On the day of discharge, his bicarbonate is 23 from 18 on admission with a potassium of 4.[address] Conway has cleared the patient for discharge. The patient was advised to avoid nephrotoxic agent. Due to elevated creatinine as well as age over 80, he was advised to reduce Eliquis to 2.5 mg b.i.d. He has been cleared by Nephrology for discharge. FINAL DIAGNOSES: 1. Acute kidney injury on chronic kidney disease stage 3, improved. 2. Severe hyperkalemia secondary to acute kidney injury, resolved. 3. Coronary artery disease status post recent coronary artery bypass grafting. 4. Paroxysmal atrial fibrillation, on anticoagulation. 5. Hypertension. 6. Diabetes mellitus type 2. 7. Gout. 8. Metabolic acidosis on admission, resolved. 9. Chronic anemia, macrocytic. His vitamin B12 and folic acid were normal. 10. Benign prostatic hypertrophy. PLAN: Plan of care was discussed with the patient in detail. He stated understanding. Job ID: [id number]
== END 2019-07-31 13:17 | disposition home or self-care (01) | DRG 683 ==
LOC: ERS 15:44 → 2NO 22:02
PROVIDERS: ADMIT Internal Medicine; ATTEND Internal Medicine
DX: N17.9 Acute kidney failure, unspecified (principal); E87.2 Acidosis; E87.5 Hyperkalemia; I12.9 Hypertensive chronic kidney disease with stage 1 through stage 4 chronic kidney disease, or unspecified chronic kidney disease; E11.22 Type 2 diabetes mellitus with diabetic chronic kidney disease; I25.10 Atherosclerotic heart disease of native coronary artery without angina pectoris; I48.0 Paroxysmal atrial fibrillation; E11.21 Type 2 diabetes mellitus with diabetic nephropathy; N40.0 Benign prostatic hyperplasia without lower urinary tract symptoms; M10.9 Gout, unspecified; D63.1 Anemia in chronic kidney disease; N18.3 Chronic kidney disease, stage 3 (moderate); Z79.4 Long term (current) use of insulin; Z79.01 Long term (current) use of anticoagulants; Z95.1 Presence of aortocoronary bypass graft; Z95.5 Presence of coronary angioplasty implant and graft; Z88.6 Allergy status to analgesic agent; Z88.8 Allergy status to other drugs, medicaments and biological substances
CPT/HCPCS: 36415; 80048; 83036; 83690; 83735; 83970; 84100; 85025; 93005; 96361; 96374; 96375; J0360; J1815; J7070; J7611; Q5105

== ENCOUNTER 2019-11-15 08:26 | Outpatient (CLI) | payer MEDICARE, OTHER ==
--- NOTE | 2019-11-15 09:52 | CT ---
CT ABDOMEN AND PELVIS WITH IV CONTRAST 11/15/2019 CLINICAL INFORMATION: Recent diagnosis of prostate cancer 3 months ago. COMPARISON: None. Technique: Multiple contiguous axial CT images are obtained through the abdomen and pelvis with IV contrast. Cor onal reformatted images are provided. FINDINGS: Lower Chest: Tiny bilateral pleural effusions with associated bibasilar atelectasis. Median sternotom y wires are present. Vascular calcifications are seen in the coronary arteries. The heart is mildly enlarged. Vessels: Vascular calcifications are seen in the abdominal aorta and iliac arteries. Abdomen: Portal vein:Patent Gallbladder: Within normal limits for CT imaging. Liver: Mild nonspecific heterogeneity which may be attributable to phase of enhancement. Hepatic vein s are not opacified. There is linear area of enhancement seen in the medial segment left hepatic lobe which is likely related to vascular structures given the appearance on coronal images as opposed to an enhancing lesion. Spleen: within normal limits. Pancreas: within normal limits. Adrenals: Mild thickening of each adrenal gland without nodule present. Kidneys: A 2.4 cm fluid attenuation lesion is seen in the inferior pole left kidney most compatible w ith a cyst. Subcentimeter too small to characterize hypodense lesions are seen in each kidney. A 1.5 cm exophytic increased density lesion is seen in the inferior pole right kidney. Further characte rization with pre and postcontrast imaging is recommended. Bowel: Colonic diverticulosis is present. There is a small to moderate amount of retained fecal mater ial seen throughout the colon. There does appear to be irregular nodular thickening involving the rectum. Colonoscopy is recommended for further evaluation as neoplastic process is diagnosis of exclu jadyn given the appearance of the area of thickening. Appendix: Mild prominent diameter measuring 7 mm, but the appendix is filled with gas without CT find ings to suggest appendicitis. Peritoneum: There is mild mesenteric edema seen diffusely. Mesentery and Retroperitoneum: No enlarged mesenteric or retroperitoneal lymph nodes. Abdominal Wall: within normal limits. Pelvis: Reproductive Organs: Prostate gland is enlarged and heterogeneous in appearance measuring 6.5 cm in g reatest transverse dimension. Pelvis: Mild presacral edema is present. Bladder: There is suggested mass in the base urinary bladder, but this is most likely related to mass effect secondary to nodular enlargement of the prostate gland. Bones: A 1.3 cm sclerotic lesion is seen in the right iliac bone at the superior aspect right sacroil iac joint. A subcentimeter sclerotic density is seen in the left sacral ala as well as in the lateral right iliac bone worrisome for sclerotic metastatic lesions. A subtle subcentimeter sclerotic lesion is seen in the most proximal right femoral diaphysis near the level of the lesser trochanter. This is also worrisome for a sclerotic metastatic lesion. Degenerative changes are seen i n the spine. IMPRESSION: 1. Irregular nodular thickening involving the rectum. Neoplastic process is diagnosis of exclusion. C olonoscopy is recommended for further evaluation. 2. Enlarged heterogeneous prostate gland with mass effect on the urinary bladder. 3. Findings suggestive of sclerotic metastatic lesions within the right sacrum and proximal right fem ur. 4. Increased density lesion inferior pole right kidney which cannot be characterized without precontr ast images. Follow-up CT scan with and without IV contrast is recommended for further characterization. Small bilateral pleural effusions. 5. Mild nonspecific mesenteric edema. No enlarged lymph nodes are seen by CT size criteria. 6. Cardiomegaly. 7. Small bilateral pleural effusions. 8. Left renal cyst. 9. Colonic diverticulosis.
--- NOTE | 2019-11-15 12:44 | NM ---
WHOLE BODY BONE SCAN: HISTORY: Malignant neoplasm of prostate diagnosed 1 month ago. He had CABG 2 months ago. RADIOPHARMACEUTICAL: 30 mCi technetium 99m-MDP injected intravenously COMPARISON:07/27/2004 CORRELATION: CT abdomen and pelvis from same date FINDINGS: Increased uptake in the sternum is consistent with recent CABG. There are focal areas of increased up take in the right iliac bone and inferior right sacrum. These correspond to the sclerotic lesions on CT scan from same date and are consistent with metastatic disease. There scattered degenerative activity in the appendicular skeleton. Tracer excretion through the kidneys is within normal limits. IMPRESSION: Findings are consistent with osseous metastatic disease.
[2019-11-15] MEDS ORDERED: Iopamidol 370 76% 100 ML VIAL ONE (14:33)
== END 2019-11-15 08:27 | disposition home or self-care (01) ==
LOC: CT 08:26
PROVIDERS: ATTEND Urology
DX: C61 Malignant neoplasm of prostate (principal); N40.0 Benign prostatic hyperplasia without lower urinary tract symptoms; K62.89 Other specified diseases of anus and rectum; N28.9 Disorder of kidney and ureter, unspecified; J90 Pleural effusion, not elsewhere classified; I51.7 Cardiomegaly; N28.1 Cyst of kidney, acquired; K57.30 Diverticulosis of large intestine without perforation or abscess without bleeding; R60.0 Localized edema
CPT/HCPCS: 74177; 78306; 82565; A9503; Q9967

== ENCOUNTER 2020-01-04 10:12 | Outpatient (CLI) | payer MEDICARE, OTHER ==
--- NOTE | 2020-01-04 14:23 | ULT ---
EXAM: BILATERAL RENAL ULTRASOUND COMPLETE 01/04/20 HISTORY: Follow-up renal mass. COMPARISON: Abdomen and pelvic CT scan, 11/15/19. FINDINGS: Possible small amount of ascitic fluid adjacent to the right lobe of the liver. Right kidney measures 7.5 x 4.4 x 3.9 cm. Left kidney measures 8.6 x 5.2 x 5.3 cm. Several small less than 1.1 cm right renal cyst. The previously noted 1.5 cm higher density mass off the posterior aspect of the right mid kidney is not definitively demonstrated on this study, based on the prior CT scan, I favor this representing a solid mass. For further evaluation in this regard, A follow-up multiphase abdomen and pelvic CT scan with renal mass protocol with and without IV contrast is suggested. Several small right renal cysts. Left renal cyst up to 2.8 cm. Marked prostate gland e nlargement and nodularity. IMPRESSION: No renal hydronephrosis. Bilateral renal cysts. The previously noted potentially solid mass involving the posterior aspect of the mid right kidney is not definitively demonstrated on this study. Conside r additional imaging as above in that regard. Marked prostate gland enlargement and nodularity. No re nal hydronephrosis. Code T
== END 2020-01-04 10:13 | disposition home or self-care (01) ==
LOC: EDBD → BICULT 10:12
PROVIDERS: ATTEND Urology
DX: N28.89 Other specified disorders of kidney and ureter (principal); N28.1 Cyst of kidney, acquired; N40.0 Benign prostatic hyperplasia without lower urinary tract symptoms; N40.2 Nodular prostate without lower urinary tract symptoms
CPT/HCPCS: 76770

== ENCOUNTER 2020-02-17 09:18 | Inpatient (IN) | payer MEDICARE, OTHER ==
--- NOTE | 2020-02-17 09:33 | CT ---
CT BRAIN NONCONTRAST: DATE: 02/17/2020 9:22 AM HISTORY: 84-year-old male with acute stroke symptoms: Right upper extremity weakness and right hemineglect. Dr. Leung gave verbal report for this level [address] stroke alert protocol to Dr. Ascencio of the ER at 9:28 AM COMPARISON: 07/13/2019 FINDINGS: There is no evidence of acute intra-axial or extra-axial hemorrhage. There is no midline shift or any other mass effect. There is no extra-axial fluid collection. There is no evidence of obstructive hydrocephalus. Calvarium is intact. Again noted are the chronic ischemic white matter changes in the bilateral deep parietal white matter. There is a new subtle finding of a small patch of slightly low intra-axial attenuation in the left frontal centrum semiovale. IMPRESSION: 1) possible small early acute infarction in the left upper cerebral deep white matter. 2) no acute hemorrhage or mass effect.
[2020-02-17 09:46] LABS: INR-International Normal Ratio 1.1; Prothrombin Time 14.4 sec (12.0-14.7)
[2020-02-17 09:47] LABS: PTT 36.2 sec (22.9-36.1)
[2020-02-17] MEDS ORDERED: Iopamidol 370 76% 100 ML VIAL ONE (09:48)
[2020-02-17] MEDS ORDERED: Heparin 10,000 UNITS/1 ML VIAL ONE (09:50)
--- NOTE | 2020-02-17 10:03 | CT ---
CT ANGIOGRAM NECK WITH CONTRAST CT ANGIOGRAM BRAIN WITH CONTRAST CT PERFUSION BRAIN: DATE: 02/17/2020 HISTORY: 84-year-old male with acute stroke: Right hemineglect and right upper extremity weakness.. Dr. Leung verbally reported the M1 segment middle cerebral artery clot by telephone to Dr. Ascencio of the ER at 9:42 AM 02/17/2020. Dr. Leung verbally reported the findings of the CT perfusion by telephone to Dr. Ascencio of the ER at 9:57 AM 02/17/2020. TECHNIQUE: After IV contrast injection, arterial bolus chasing technique scan performed from top of aortic arch to vertex of head. Coronal and sagittal 3-D MIP reconstructions. Additional IV contrast injection. Multiple axial scans performed from mid posterior fossa to lower ce ntrum semiovale. Multiparameter analysis of perfusion study. FINDINGS: Bilateral pleural effusions, right greater than left. There is filling defect in the mid portion of the M1 segment of the left MCA consistent with thrombus . No occlusion or thrombosis of contralateral right MCA M1 segment, bilateral ACAs, basilar, intracrani al vertebral, or P1 and P2 segments of bilateral construction director and superior cerebellar arteries. The posterior circulation arteries are all of diffusely small caliber, especially the basilar artery and left vertebral artery. The left vertebral terminates in PICA No dural venous sinus thrombosis Entire cervical left vertebral artery is diminutive. Multifocal mild stenosis throughout the dominant but still small caliber right vertebral artery. Brachiocephalic: No high-grade stenosis. Right subclavian: Helically calcified plaque at origin and mid portions. No severe stenosis. Right common carotid: No high-grade stenosis. Right internal carotid: Heavily calcified plaque at carotid bulb. Partially calcified plaque in proxi mal R ICA causing moderate stenosis. Heavily calcified right carotid siphon. Left subclavian: Proximal segment partially obscured. Heavily calcified plaque throughout. No high-gr duarte stenosis in rest of vessel. Left common carotid: Mild stenosis at origin. Bovine origin. Left internal carotid: Multifocal calcified and noncalcified plaque at origin and proximal vessel. Es timated 75% severe stenosis approximately one center from origin. Severe stenosis at origin of left external carotid artery. There is a large region of decreased cerebral blood flow, increased mean transit time, and increased time to peak in the left cerebrum involving lateral frontal, temporal, and parietal lobes. However, little or no change in arterial blood volume is visualized in these same areas. (Axial images do not include the upper cerebrum on CT perfusion scans). IMPRESSION: 1) acute thrombus in M1 segment of left middle cerebral artery. 2) large region of left middle cerebral artery territory ischemia, but no infarction identified.. 3.) Extensive atherosclerotic disease, with multifocal stenosis in multiple arteries. 4.) severe stenosis at proximal left internal carotid artery. 5.) bilateral pleural effusions.
[2020-02-17 10:07] LABS: ALT (SGPT) 20 U/L (8-55); AST (SGOT) 24 U/L (5-34); Albumin 3.6 g/dL (3.4-4.8); Alkaline Phosphatase 126 U/L (40-110); Anion Gap 12 mmol/L (10-20); BUN (Urea Nitrogen) 41 mg/dL (8.4-25.7); Bilirubin, Total 0.5 mg/dL (0.2-1.2); Calc. Creatinine Clearance 0 mL/min (70-130); Calcium 8.4 mg/dL (7.8-10.44); Carbon Dioxide 20 mmol/L (23-31); Chloride 109 mmol/L (98-107); Estimated GFR-MDRD 46; Globulin 3.4 g/dL (2.4-3.5); Glucose 116 mg/dL (83-110); Potassium 4.8 mmol/L (3.5-5.1); Sodium 136 mmol/L (136-145)
[2020-02-17] MEDS ORDERED: Fentanyl 100 MCG/2 ML VIAL ONE ×2 (10:14→10:18)
[2020-02-17 10:17] LABS: #Eosinphils 0.1 thou/uL (0.0-0.7); #Lymphocytes 0.8 thou/uL (1.20-3.40); #Monocytes 0.4 thou/uL (0.11-0.59); #Neutrophils 3.1 thou/uL (1.40-6.50); %Basophils 0.2 % (0.0-1.0); %Eosinophils 2.1 % (0.0-10.0); %Lymphocytes 17.6 % (21.0-51.0); %Monocytes 8.5 % (0.0-10.0); %Neutrophils 71.6 % (42.0-75.0); Hemoglobin 9.2 g/dL (14.0-18.0); Mean Corpuscular HGB CONC 32.2 g/dL (32.0-36.0); Mean Corpuscular Hemoglobin 35.5 pg (27.0-31.0); Mean Platelet Volume 8.6 fL (7.4-10.4); Platelet Count 129 thou/uL (130-400); RBC Distribution Width 12.3 % (11.5-14.5); Red Blood Cell (RBC) Count 2.59 mill/uL (4.70-6.10); White Blood Cell (WBC) Count 4.3 thou/uL (4.8-10.8)
[2020-02-17 10:44] LABS: MDiff Complete? YES; Macrocytosis SLIGHT = 6-15 cells (100X) (0-5/hpf); Platelet Morphology Comment Appears Decreased; Polychromasia SLIGHT = 2-3 cells (100X) (0-2/hpf)
[2020-02-17] MEDS ORDERED: Labetalol HCl 100 MG/20 ML VIAL SLOW IVP PRN (11:16)
[2020-02-17] MEDS ORDERED: niCARdipine 25 MG in Sodium Chloride 0.9% 250 ML 250 ML IVPB PRN (11:16)
[2020-02-17] MEDS ORDERED: Acetaminophen 325 MG TAB PO PRN (11:16)
[2020-02-17] MEDS ORDERED: hydrALAZINE 20 MG/ML VIAL SLOW IVP PRN (11:16)
--- NOTE | 2020-02-17 12:41 | PRG ---
DATE OF SERVICE: 02/17/2020 Mr. Caballero is an 84-year-old gentleman, who developed abrupt onset of dysarthria and dense right hemiparesis at home. He was brought to the ER, where he underwent a noncontrast CT, which revealed no evidence for hemorrhage. Subsequent to that, he had a CT angiogram performed, which shows occlusion of the left M1 segment of the middle cerebral artery and a CT perfusion study, which suggested a very salvageable penumbra. He received IV tPA in the ER and is brought to the laboratory monitor for purposes of mechanical thrombectomy. Job ID: [id number]
--- NOTE | 2020-02-17 12:55 | OP ---
DATE OF PROCEDURE: 02/17/2020 PICKER FEEDER: None. INDICATION: Middle cerebral artery occlusion. DIAGNOSIS: Left M1 branch occlusion. PROCEDURE PERFORMED: Mechanical thrombectomy. ANESTHESIA: General. DESCRIPTION OF PROCEDURE: The patient was brought into the operating room and placed under general anesthesia. He was placed on the table in a supine position. Both groins were prepped and draped in the usual sterile fashion. Following an appropriate operative pause, a 5-Estonian micropuncture set was used to gain access to the right common femoral artery. Using a Seldinger technique, an 8-Estonian sheath was placed. An 8-Estonian Concentric guide catheter was passed over a long real5D 2 diagnostic catheter, which was passed over a Arav guidewire. The catheter was formed in the arch and the left internal carotid artery was selectively catheterized. The Concentric guide catheter was placed within the left internal carotid artery, where an AP and lateral angiogram was performed. Angiography revealed the presence of clot as suggested on the CT angiogram. A Trevo device was deployed one time with complete latter day of flow going from TICI score of 0 to TICI score of 3. All catheters were then removed. A sheath was sewn into place secondary to recent administration of TPA. The procedure came to an end without any known complication. IMPRESSION: The patient underwent successful angiography and successful mechanical thrombectomy with complete latter day of blood flow. Job ID: [id number]
[2020-02-17] MEDS: Communication Order-Pharmacy FS SCH (14:51)
[2020-02-17] MEDS: Atorvastatin Calcium 40 MG TAB PO SCH (20:30)
[2020-02-18 04:08] LABS: Cardiac Risk 4.7 (Less than 4.5)
--- NOTE | 2020-02-18 08:18 | CT ---
PRELIMINARY REPORT/[facility]/EMERGENCY AFTER HOURS PROCEDURE This report was discussed with Oren Knowles RN by Nika Vasquez on Feb 18, 2020 04:33:00 CDT. Addendum electronically signed by Nika Vasquez on February 18, 2020 4:36:[address], axial images History: Status post TPA. Right-sided weakness Comparison: 02/17/20 Findings: No acute intracranial hemorrhage noted. Mild involutional changes and manifestations of ch ronic microvascular disease are again seen throughout the hemispheric white matter. There is a new ar ea of subtle low density measuring approximately 13 x 10 mm in the left basal ganglia on axial series 2, image 15. The remainder of the brain is unchanged. There is no mass effect or midline shift. Te ntorial calcifications again noted. The calvarium is intact. Visualized paranasal sinuses are clear. Impression: Subtle 13 x 10 mm area of low density in the left basal ganglia, new since prior exam. T his is suspected to represent a small acute infarct. No acute intracranial hemorrhage. ELECTRONICALLY SIGNED BY: Stew Akers MD Feb 18, 2020 4:27:21 AM CDT FINAL REPORT EMERGENT AFTER HOURS OF THE BRAIN WITHOUT CONTRAST: COMPARISON: 02/17/2020. FINDINGS/IMPRESSION: I agree with the findings and impression given in the preliminary report per [facility] physici an. There is a questionable area of new subtle low-density in the left basal ganglia. No intracrani al hemorrhage is identified. POS: EAA
--- NOTE | 2020-02-18 08:47 | PRG ---
DATE OF SERVICE: 02/18/2020 Mr. Patel is an 84-year-old gentleman, who is now one day status post IV tPA as well as mechanical thrombectomy. He has made a profound recovery almost back to baseline. I visited with him in the ICU, where he is awake and alert. Grossly, he appears to move his right side as well as his left, although the exam is limited by his bedrest restriction secondary to placement of the sheath. His speech appears to be clear to me. He has a slight facial droop. Overall, I am very pleased with his progress. He had a repeat CT examination today, which shows no evidence for hemorrhage. The plan moving forward will be to remove the sheath later this morning. We then can begin to mobilize him. He can transfer out of the ICU to the stroke unit. He will continue to need risk stratification evaluation by our Medicine and Neurology team. Job ID: [id number]
[2020-02-18] MEDS ORDERED: Aspirin 300 MG Suppository PR SCH (09:00)
[2020-02-18] MEDS: Enoxaparin Sodium 30 MG/0.3 ML SYRINGE SC SCH (10:55)
[2020-02-18] MEDS: Aspirin 325 mg Enteric Coated Tablet PO SCH (10:55)
--- NOTE | 2020-02-18 11:47 | CON ---
DATE OF CONSULTATION: REASON FOR CONSULTATION: He is in the ICU. HISTORY OF PRESENT ILLNESS: Amanda Caballero is an 84-year-old gentleman, who presents to the ER with acute right-sided weakness. Brought to the ER, underwent emergency intervention, seen by Neurosurgery, mechanical thrombectomy, and IV tPA. He had repeat CT of his brain done this morning postprocedure, which showed now evidence of 3 x 10 mm low-density left basal ganglia acute infarct. Though he is awake, alert, and responsive. Denies any pain or difficulty breathing. Extensive previous history is well outlined. Pertinent for hypertension, coronary artery disease, cardiac arrhythmias, BPH. PREVIOUS SURGERIES: Bypass surgery, peripheral vascular disease, cath, rotator cuff surgery, previous endoscopy. PAST MEDICAL HISTORY: Otherwise, diabetes, hypertension, renal failure, cardiac arrhythmias, coronary artery disease. HOME MEDICATIONS: 1. Lasix 40. 2. Coreg 6.25. 3. Casodex 50. 4. Bicarb. 5. Vitamin. 6. Norvasc 5. 7. Benadryl. 8. Nitroglycerin. ALLERGIES: DEMEROL, PLAVIX. REVIEW OF SYSTEMS: Unremarkable. PHYSICAL EXAMINATION: GENERAL: He is awake, alert, responsive, moves all 4 extremities. VITAL SIGNS: Saturations 100% on room air, blood pressure 116/48, pulse 50, respiratory rate 18. CHEST: No wheezing. No crackles. CARDIAC: Normal S1 and S2. No gallops. ABDOMEN: No masses. LABORATORY DATA: White count 4000, H and H are 9 and 28, platelet count is normal. Chemistry profile shows creatinine 1.7, BUN 41, glucose is normal. IMPRESSION: 1. Status post right-sided weakness, cerebrovascular accident with emergency mechanical thrombectomy, and IV tPA with some good results. 2. Baseline hypertension. 3. Coronary artery disease. 4. Renal failure. Pulmonary/Critical Care will follow in the ICU. At this stage, no further input. Continue PT, supportive care. This is a consultation note for 45 minutes, 50% direct patient care. Job ID: [id number]
[2020-02-18] MEDS: Communication Order-Pharmacy FS SCH (12:26)
--- NOTE | 2020-02-18 12:56 | CON ---
NEUROLOGY CONSULTATION DATE OF CONSULTATION: 02/18/2020 REASON FOR CONSULTATION: Stroke HISTORY OF PRESENT ILLNESS: Mr. Amanda Caballero is an 84-year-old male with medical history significant for hypertension who presented with acute onset of right- sided weakness. Per report, the patient was last seen normal around 8:15 yesterday morning. According to the family, EMS was called because the patient went to the restroom and they found him on the floor. He was found to have right facial droop and right-sided weakness and was unable to talk at that time. In the emergency room, , noncontrast head CT was done which revealed no acute intracranial hemorrhage. He also had a CT angiogram done, which showed occlusion of the left M1 segment of the middle cerebral artery and CT perfusion study suggested a very salvageable penumbra. He received intravenous tPA in the emergency room and is brought to the [facility] where mechanical thrombectomy was performed by Dr. Brewer in the last 24 hours and the patient was transferred to the CCU for further management. His exam significantly improved over the next 24 hours and at this time, he is almost back to his baseline. His speech is clear. He does have a subtle right droop and he has a mild right-sided weakness and Neurology was consulted for further evaluation of stroke. Repeat head CT was done, which showed acute infarction in the left thalamus, but no evidence of hemorrhage. The patient denies nausea, vomiting, headache, dizziness, chest pain, loss of vision , or loss of consciousness associated with the episode. REVIEW OF SYSTEMS: All 14 systems were reviewed and were negative except the pertinent positives and negatives mentioned in the HPI. PAST MEDICAL HISTORY: Hypertension, coronary artery disease, diabetes mellitus, gout. PAST SURGICAL HISTORY: CABG with stents x3, wrist surgery, shoulder surgery. FAMILY HISTORY: Reviewed and was noncontributory. SOCIAL HISTORY: The patient denies smoking, alcohol, or illegal drug use. PHYSICAL EXAMINATION: 150/90 18 88 GENERAL APPEARANCE: The patient is alert and awake. Speech is clear. CVS: RRR CHEST: Clear ABDOMEN: Soft NEUROLOGIC: Recent and remote memory intact. Follows commands appropriately. Motor, muscle tone, and bulk are normal. Moving all 4 extremities equally and symmetrically. Left upper and lower extremity, 5/5. Right upper and lower extremity, 4+/5. Reflexes symmetric bilaterally. Cerebellar, mild dysmetria on the right. Speech is clear. Cranial nerves 2 through 12 intact except 7. Right facial droop. Sensory intact. Gait deferred due to patient's safety reasons. DATA REVIEWED: I reviewed the CT scan, which showed acute left thalamic infarct. I also reviewed the CT angiogram, which showed occlusion of the M1 segment. Labs were significant for BUN of 29 and creatinine of 3.2. Labs were also reviewed and results were noted. EKG showed sinus rhythm. ASSESSMENT AND PLAN: Mr. Amanda Caballero is admitted because of acute onset of right-sided weakness. He is status post IV tPA, mechanical thrombectomy performed by Dr. Brewer. The patient has clinically improved and is doing much better and almost back to his baseline. He does have risk factors for stroke. 1. Consider MRI of the brain to assess acute intracranial process. 2. Telemetry. 3. 2D echo to evaluate for left ventricular ejection fraction and to rule out cardioembolic source. 4.Check carotid Doppler. 5.Check fasting lipid panel, hemoglobin A1c, and TSH. 6.Neuro checks every 4 hours. 7.Continue home medications. 7.Restart aspirin 24 hours post tPA. 8. Continue statin for secondary stroke prevention. 9. Continue home medications. 10. PT/OT/Speech. 11.Monitor blood pressure and blood glucose. 12. Continue medical management per primary team. We will continue to follow. Thank you for the consult. Job ID: [id number] ERIN
[2020-02-18] MEDS: Sodium Bicarbonate Tab 325 MG TAB PO SCH ×2 (14:33→20:49)
--- NOTE | 2020-02-18 15:28 | CT ---
CT ANGIOGRAM NECK WITH CONTRAST CT ANGIOGRAM BRAIN WITH CONTRAST CT PERFUSION BRAIN: DATE: 02/17/2020 HISTORY: 84-year-old male with acute stroke: Right hemineglect and right upper extremity weakness.. Dr. Leung verbally reported the M1 segment middle cerebral artery clot by telephone to Dr. Ascencio of the ER at 9:42 AM 02/17/2020. Dr. Leung verbally reported the findings of the CT perfusion by telephone to Dr. Ascencio of the ER at 9:57 AM 02/17/2020. TECHNIQUE: After IV contrast injection, arterial bolus chasing technique scan performed from top of aortic arch to vertex of head. Coronal and sagittal 3-D MIP reconstructions. Additional IV contrast injection. Multiple axial scans performed from mid posterior fossa to lower ce ntrum semiovale. Multiparameter analysis of perfusion study. FINDINGS: Bilateral pleural effusions, right greater than left. There is filling defect in the mid portion of the M1 segment of the left MCA consistent with thrombus . No occlusion or thrombosis of contralateral right MCA M1 segment, bilateral ACAs, basilar, intracrani al vertebral, or P1 and P2 segments of bilateral automobile appraiser and superior cerebellar arteries. The posterior circulation arteries are all of diffusely small caliber, especially the basilar artery and left vertebral artery. The left vertebral terminates in PICA No dural venous sinus thrombosis Entire cervical left vertebral artery is diminutive. Multifocal mild stenosis throughout the dominant but still small caliber right vertebral artery. Brachiocephalic: No high-grade stenosis. Right subclavian: Helically calcified plaque at origin and mid portions. No severe stenosis. Right common carotid: No high-grade stenosis. Right internal carotid: Heavily calcified plaque at carotid bulb. Partially calcified plaque in proxi mal R ICA causing moderate stenosis. Heavily calcified right carotid siphon. Left subclavian: Proximal segment partially obscured. Heavily calcified plaque throughout. No high-gr duarte stenosis in rest of vessel. Left common carotid: Mild stenosis at origin. Bovine origin. Left internal carotid: Multifocal calcified and noncalcified plaque at origin and proximal vessel. Es timated 75% severe stenosis approximately one center from origin. Severe stenosis at origin of left external carotid artery. There is a large region of decreased cerebral blood flow, increased mean transit time, and increased time to peak in the left cerebrum involving lateral frontal, temporal, and parietal lobes. However, little or no change in arterial blood volume is visualized in these same areas. (Axial images do not include the upper cerebrum on CT perfusion scans). IMPRESSION: 1) acute thrombus in M1 segment of left middle cerebral artery. 2) large region of left middle cerebral artery territory ischemia, but no infarction identified.. 3.) Extensive atherosclerotic disease, with multifocal stenosis in multiple arteries. 4.) severe stenosis at proximal left internal carotid artery. 5.) bilateral pleural effusions. Transcribed Date/Time: 02/18/2020 3:27 PM
--- NOTE | 2020-02-18 16:19 | CON ---
DATE OF CONSULTATION: PRIMARY CARE PHYSICIAN: Ángel Carlos MD REASON FOR ADMISSION: Acute onset of right-sided weakness. REASON FOR CONSULTATION: Medical management. HISTORY OF PRESENT ILLNESS: Mr. Cabalelro is a very pleasant 84-year-old gentleman, who has a history of hypertension, coronary artery disease, as well as atrial fibrillation. He recently returned from [place] where he said he had some type of surgery on his mitral valve and says that this was done this past Friday. He was doing fine when he left and came home, and then early yesterday morning, he says he woke up to get a shower around 8:00 a.m. and had the abrupt onset of weakness. He says he "just went out and was on the floor." Luckily, his was there and she called EMS and had him brought to the hospital. He says he does not really remember much in between that time, but from the ER records he had a dense right hemiparesis and he was apparently dysarthric. He underwent tPA and Neurosurgery was called and he also had a mechanical thrombectomy. He has been placed in the ICU and we have been consulted to aid in medical management. According to the nursing staff, his NIH is now down to a 3 and when I speak to him, he says he is feeling fine. He notes some weakness in his right leg, but otherwise has no other complaints. He denies any headaches. No dizziness. No chest pain. No shortness of breath. No nausea. No vomiting. The only thing that he mentions is some swelling in the right knee, which he said started immediately after his surgery in [place] as well as some swelling in the right ankle. No significant pain there, but otherwise no other complaints. The patient also says that he was taken off blood thinners by Dr. Guzman and it is Dr. Guzman who had sent him to [place] to have this surgery done. REVIEW OF SYSTEMS: All systems are reviewed and are negative except for that mentioned in the history of present illness. PAST MEDICAL HISTORY: Significant for hypertension, hyperlipidemia, coronary artery disease, gout, atrial fibrillation, and he denies diabetes mellitus. PAST SURGICAL HISTORY: It looks like he has had bypass surgery before. He has had cardiac stents placed 10 years ago. Right wrist surgery, right shoulder surgery, cardiac catheterization, which sounds like either a mitral valve repair. ALLERGIES: TO PLAVIX AND DEMEROL, WHICH CAUSES CRAMPS AND VISUAL DISTURBANCE. SOCIAL HISTORY: He is , has 2 children. He is a nonsmoker. He occasionally drinks. He would like to be a full code and his , Saqib, is his surrogate decision maker. FAMILY HISTORY: Significant for a brother and father who had a stroke, kidney disease as well as heart disease. MEDICATIONS: Taken from the hospital records and include: 1. Betamethasone topical. 2. Lasix 40 mg daily. 3. Carvedilol 6.25 mg twice daily. 4. Casodex 50 mg p.o. daily. 5. Tylenol 650 mg q.8 as needed. 6. Sodium bicarbonate 650 mg t.i.d. 7. Multivitamin once daily. 8. Docusate sodium 100 mg daily. 9. Amlodipine 5 mg a day. 10. Benadryl 25 mg as needed. 11. Nitrostat 0.4 sublingual p.r.n. 12. Aspirin 81 mg a day. PHYSICAL EXAMINATION: GENERAL: He is alert and oriented. He appears to be in no acute distress. He is well developed and well nourished, very pleasant gentleman, sitting up in the hospital bed eating when I came to see him. VITAL SIGNS: Blood pressure was ranging from about 149/57, and it was as high as 180 systolic, heart rate 53, respiratory rate of 12, temperature is 97.6. HEENT: Pupils are equal, round, and reactive. Extraocular muscles are intact. Sclerae are anicteric. Throat, there is no erythema. No exudates. NECK: He had bilateral bruits. There is no adenopathy. LUNGS: Clear to auscultation. I did not hear any wheezing, rales, or rhonchi. CARDIOVASCULAR: He had a normal S1 and S2. I did not appreciate an S3 or S4. No murmurs, clicks, or rubs. ABDOMEN: Soft, nontender, nondistended. Positive for bowel sounds. There is no rebound. No guarding. No organomegaly. EXTREMITIES: There is no calf tenderness. He did have appears to be an effusion on the right knee. There is a positive ballottement of fluid there. There was no erythema in the joint. There was no crepitus and there was no joint laxity. He also had some mild swelling in the ankle as well on the right. Good dorsalis pedis pulses bilaterally. NEUROLOGIC: His muscle strength was 5/5 in both his upper and lower extremities. However, in the right leg, he had a slight bit of weakness as compared to the left against resistance and his cranial nerves appear to be grossly intact. SKIN AND INTEGUMENT: There are no significant skin changes. No rash. LABORATORY DATA: White blood cell count was 4.3, hemoglobin 9.2, hematocrit 28.6, and platelet count is 129. INR was 1.1. Sodium 136, potassium 4.8, chloride is 109, CO2 is 20, BUN of 41, creatinine 1.73, glucose is 116. Cholesterol panel, total cholesterol was 121, LDL 79, HDL 26. On a CT scan of the brain, it is reported there is no evidence of any bleed that is by my reading. He had an EKG done on yesterday on 02/16 as this appears to be in sinus rhythm. He has a Q wave in lead III, but in no other contiguous leads and some flattening of his ST segments in V4, V5, and V6, and essentially some nonspecific ST-T wave changes. ASSESSMENT: This is a pleasant 84-year-old gentleman, who is admitted for an acute left middle cerebral artery cerebrovascular accident, who is status post tPA as well as thrombectomy. With good results, he is regaining the strength in his upper and lower extremity on the right. He does not appear to have any neurological secular concerning for intracranial hemorrhage. We will defer the acute post tPA and thrombectomy treatment to Neurosurgery. 1. Hypertension. The goal blood pressure will be below 180. Given that he is post tPA, we will like to keep his blood pressure a bit lower. We will reconcile and restart his home medications and have p.r.n. medications available as needed. 2. History of atrial fibrillation. We will need to request the records from [facility] to see whether or not he had some type of left atrial appendage ligation such as a Watchman device or Lariat procedure as he appears to be no longer on anticoagulation. 3. Acute cerebrovascular accident as per #1 and we will also consult Neurology. We will also avoid any aspirin or anticoagulation in the first 24 hours post tPA. 4. Coronary artery disease. This appears to be clinically stable. Once again, we will reconcile and restart home medications. We will start today as indicated. Job ID: [id number]
[2020-02-18] MEDS: Carvedilol 6.25 MG TAB PO SCH (20:49)
[2020-02-18] MEDS: Atorvastatin Calcium 40 MG TAB PO SCH (20:49)
[2020-02-19 08:05] LABS: #Eosinphils 0.2 thou/uL (0.0-0.7); #Lymphocytes 1.3 thou/uL (1.20-3.40); #Monocytes 0.6 thou/uL (0.11-0.59); #Neutrophils 4.1 thou/uL (1.40-6.50); %Basophils 0.6 % (0.0-1.0); %Eosinophils 3.6 % (0.0-10.0); %Lymphocytes 21.4 % (21.0-51.0); %Neutrophils 65.5 % (42.0-75.0); Hemoglobin 8.7 g/dL (14.0-18.0); Mean Corpuscular HGB CONC 34.1 g/dL (32.0-36.0); Mean Corpuscular Hemoglobin 37.5 pg (27.0-31.0); Platelet Count 125 thou/uL (130-400); RBC Distribution Width 12.4 % (11.5-14.5); Red Blood Cell (RBC) Count 2.33 mill/uL (4.70-6.10); White Blood Cell (WBC) Count 6.2 thou/uL (4.8-10.8)
[2020-02-19 08:19] LABS: Anion Gap 11 mmol/L (10-20); BUN (Urea Nitrogen) 26 mg/dL (8.4-25.7); Calc. Creatinine Clearance 33 mL/min (70-130); Calcium 7.5 mg/dL (7.8-10.44); Carbon Dioxide 19 mmol/L (23-31); Chloride 112 mmol/L (98-107); Estimated GFR-MDRD 48; Glucose 110 mg/dL (83-110); Potassium 4.5 mmol/L (3.5-5.1); Sodium 137 mmol/L (136-145)
[2020-02-19] MEDS: Sodium Bicarbonate Tab 325 MG TAB PO SCH ×3 (09:36→20:24)
[2020-02-19] MEDS: Aspirin 325 mg Enteric Coated Tablet PO SCH (09:36)
[2020-02-19] MEDS: Carvedilol 6.25 MG TAB PO SCH ×2 (09:36→20:24)
[2020-02-19] MEDS: Bicalutamide 50 MG TAB PO SCH (09:36)
[2020-02-19] MEDS: Enoxaparin Sodium 30 MG/0.3 ML SYRINGE SC SCH (09:36)
[2020-02-19] MEDS: Amlodipine 5 MG TAB PO SCH (09:36)
--- NOTE | 2020-02-19 13:12 | PDOC.HOSPP ---
- Subjective Encounter Date: 02/19/20 Encounter Time: 13:10 Subjective: Mr. Caballero was seen today in follow-up of acute CVA. He does not have any complaints.He has regained strength in both is right upper and lower extremities. - Objective Vital Signs & Weight: Vital Signs (12 hours) Temp Pulse Resp BP Pulse Ox 02/19/20 11:25 98.3 F 53 L 17 147/57 H 98 02/19/20 09:36 55 L 02/19/20 08:00 97 02/19/20 07:20 98.2 F 55 L 18 158/67 H 97 02/19/20 04:02 98.0 F 68 16 151/68 H 97 Weight Admit Weight 153 lb Weight 153 lb 10.595 oz Most Recent Monitor Data Heart Rate from ECG 64 NIBP 153/81 NIBP BP-Mean 105 Respiration from ECG 22 SpO2 99 I&O: 02/18/20 02/19/20 02/20/20 06:59 06:59 06:59 Intake Total 230 520 600 Output Total 825 850 150 Balance -595 -330 450 Result Diagrams: 02/19/20 07:46 02/19/20 07:45 Hospitalist ROS - Medication Medications: Active Medications Generic Name Dose Route Start Last Admin Trade Name Freq PRN Reason Stop Dose Admin Amlodipine Besylate 5 mg 02/19/20 09:00 02/19/20 09:36 Norvasc PO 5 mg DAILY RHEA Administration Aspirin 325 mg 02/18/20 09:00 02/19/20 09:36 Ecotrin PO 325 mg DAILY RHEA Administration Atorvastatin Calcium 40 mg 02/17/20 21:00 02/18/20 20:49 Lipitor PO 40 mg HS RHEA Administration Bicalutamide 50 mg 02/19/20 09:00 02/19/20 09:36 Casodex PO 50 mg DAILY RHEA Administration Carvedilol 6.25 mg 02/18/20 21:00 02/19/20 09:36 Coreg PO 6.25 mg BID RHEA Administration Enoxaparin Sodium 30 mg 02/18/20 09:00 02/19/20 09:36 Lovenox SC 30 mg 0900 RHEA Administration Hydralazine HCl 10 mg 02/17/20 11:16 02/17/20 16:13 Apresoline SLOW IVP 10 mg Q4H PRN Administration SBP > 180 or DBP > 105 Sodium Bicarbonate 650 mg 02/18/20 15:00 02/19/20 09:36 Bicarbonate, Sodium PO 650 mg TID RHEA Administration - Exam Eye: PERRL, anicteric sclera Heart: RRR, no murmur, no gallops, no rubs Respiratory: CTAB, no wheezes, no rales, no ronchi, normal chest expansion, no tachypnea Gastrointestinal: soft, non-tender, non-distended, normal bowel sounds, no palpable masses Extremities: no cyanosis, no edema Hosp A/P (1) Acute ischemic left MCA stroke Code(s): I63.512 - CEREB INFRC D/T UNSP OCCLS OR STENOS OF LEFT MID CEREB ART Status: Acute (2) CAD (coronary artery disease) Code(s): I25.10 - ATHSCL HEART DISEASE OF [place] CORONARY ARTERY W/O ANG PCTRS Status: Chronic (3) Gout Code(s): M10.9 - GOUT, UNSPECIFIED Status: Chronic (4) Hypertension Code(s): I10 - ESSENTIAL (PRIMARY) HYPERTENSION Status: Chronic - Plan * Acute Left MCA CVA, who is s/p embolectomy, and Mechanical thrombectomy * Continue aspirin, Statin, * Will check Echo and MRI of the brain * Blood pressure is trending down- will continue the current regimen and titrate medications as needed * Cerebral vascular disease-- he has significant stenosis of the left carotid artery-will consult CV Surgery * CAD- stable
--- NOTE | 2020-02-19 13:22 | PDOC.HOSPP ---
- Subjective Encounter Date: 02/19/20 Subjective: NEUROLOGY PROGRESS NOTE Patient is alert, awake and clinically improved without any focal deficits. Repeat Head CT post TPA negative for bleed. - Objective Vital Signs & Weight: Vital Signs (12 hours) Temp Pulse Pulse Pulse Resp BP BP 02/19/20 11:25 98.3 F 53 L 17 02/19/20 09:56 57 L 55 L 154/65 H 178/66 H 02/19/20 09:36 55 L 02/19/20 08:00 02/19/20 07:20 98.2 F 55 L 18 02/19/20 04:02 98.0 F 68 16 BP Pulse Ox 02/19/20 11:25 147/57 H 98 02/19/20 09:56 02/19/20 09:36 02/19/20 08:00 97 02/19/20 07:20 158/67 H 97 02/19/20 04:02 151/68 H 97 Weight Admit Weight 153 lb Weight 153 lb 10.595 oz Most Recent Monitor Data Heart Rate from ECG 64 NIBP 153/81 NIBP BP-Mean 105 Respiration from ECG 22 SpO2 99 I&O: 02/18/20 02/19/20 02/20/20 06:59 06:59 06:59 Intake Total 230 520 600 Output Total 825 850 150 Balance -595 -330 450 Result Diagrams: 02/19/20 07:46 02/19/20 07:45 Radiology Reviewed by me: Yes EKG Reviewed by me: Yes Hospitalist ROS - Review of Systems Constitutional: denies: fever, chills, sweats, weakness, malaise, other Eyes: denies: pain, vision change, conjunctivae inflammation, eyelid inflammation, redness, other ENT: denies: ear pain, ear discharge, nose pain, nose discharge, nose congestion , mouth pain, mouth swelling, throat pain, throat swelling, other Respiratory: denies: cough, dry, shortness of breath, hemoptysis, SOB with excertion, pleuritic pain, sputum, wheezing, other Cardiovascular: denies: chest pain, palpitations, orthopnea, paroxysmal noc. dyspnea, edema, light headedness, other Gastrointestinal: denies: nausea, vomiting, abdominal pain, diarrhea, constipation, melena, hematochezia, other Genitourinary: denies: dysuria, frequency, incontinence, hematuria, retention, other Musculoskeletal: denies: neck pain, shoulder pain, arm pain, back pain, hand pain, leg pain, foot pain, other Skin: denies: rash, lesions, joanne, bruising, other Neurological: denies: weakness, numbness, incoordination, change in speech, confusion, seizures, other - Medication Medications: Active Medications Generic Name Dose Route Start Last Admin Trade Name Freq PRN Reason Stop Dose Admin Amlodipine Besylate 5 mg 02/19/20 09:00 02/19/20 09:36 Norvasc PO 5 mg DAILY RHEA Administration Aspirin 325 mg 02/18/20 09:00 02/19/20 09:36 Ecotrin PO 325 mg DAILY RHEA Administration Atorvastatin Calcium 40 mg 02/17/20 21:00 02/18/20 20:49 Lipitor PO 40 mg HS RHEA Administration Bicalutamide 50 mg 02/19/20 09:00 02/19/20 09:36 Casodex PO 50 mg DAILY RHEA Administration Carvedilol 6.25 mg 02/18/20 21:00 02/19/20 09:36 Coreg PO 6.25 mg BID RHEA Administration Enoxaparin Sodium 30 mg 02/18/20 09:00 02/19/20 09:36 Lovenox SC 30 mg 0900 [facility] Administration Hydralazine HCl 10 mg 02/17/20 11:16 02/17/20 16:13 Apresoline SLOW IVP 10 mg Q4H PRN Administration SBP > 180 or DBP > 105 Sodium Bicarbonate 650 mg 02/18/20 15:00 02/19/20 09:36 Bicarbonate, Sodium PO 650 mg TID RHEA Administration - Exam General Appearance: awake alert Eye: PERRL ENT: normocephalic atraumatic Neck: supple Heart: RRR Respiratory: CTAB Gastrointestinal: soft Skin: normal turgor Neurological: cranial nerve grossly intact, normal sensation to touch, no weakness, no focal deficits, no new deficit Musculoskeletal: normal tone, normal strength, no muscle wasting Psychiatric: normal affect, normal behavior, A&O x 3, oriented to person, oriented to place, oriented to time Hosp A/P (1) Acute ischemic left MCA stroke Code(s): I63.512 - CEREB INFRC D/T UNSP OCCLS OR STENOS OF LEFT MID CEREB ART Status: Acute (2) Chest pain Code(s): R07.9 - CHEST PAIN, UNSPECIFIED Status: Acute (3) CAD (coronary artery disease) Code(s): I25.10 - ATHSCL HEART DISEASE OF [place] CORONARY ARTERY W/O ANG PCTRS Status: Chronic (4) Gout Code(s): M10.9 - GOUT, UNSPECIFIED Status: Chronic (5) Hypertension Code(s): I10 - ESSENTIAL (PRIMARY) HYPERTENSION Status: Chronic - Plan plan discussed w/ family, PT/OT, speech therapy, DVT proph w/SCDs 84 year old with acute stroke s/p tpa and mechanical thrombectomy doing well and focal deficits and speech deficits resolved. Recommend MRI brain to evaluate for acute intracranial process Recommend 2D echo to evaluate for Left ventricular function, thrombus or PFO. Telemetry . Neurochecks every 4 hours. Strict BP and BG control . Consider CV surgery input regarding significant ICA stenosis. Aspirin and high intensity statin statin for secondary stroke prevention. PT/OT/Speech. Continue medical management per primary team. Plan discussed with parient, , and primary attending Dr. Massey.
--- NOTE | 2020-02-19 15:55 | CON ---
DATE OF CONSULTATION: 02/19/2020 DIAGNOSIS: Status post left hemispheric cerebrovascular accident with subsequent tPA and mechanical thrombectomy. He is currently recovered from his stroke to his baseline neurologic status. HISTORY OF PRESENT ILLNESS: Mr. Patel had a left hemispheric stroke, which he underwent interventional procedure and tPA for. The thrombus in his left M1 segment was extracted and he has recovered nicely. CT angiogram of the neck has shown a calcified ulcerated significant plaque of the left internal carotid artery. He has known that he has had carotid disease and he has been followed by Dr. Guzman. He was not felt to have attained a significant enough stenosis to need intervention yet. The patient was recently in [place] for a MitraClip repair of his mitral valve. The MitraClip apparently went quite successfully as the patient has no significant murmur. Echocardiogram has been performed. There were no results he had in the chart. The patient has no previous history of cerebrovascular accident. He does have hypertension, dyslipidemia, and coronary artery disease. He also has a history of atrial fibrillation. He has stated that he has an allergy to Plavix, but he is not sure what his allergy was. PAST MEDICAL HISTORY: 1. Coronary artery disease. 2. Mitral regurgitation, status post MitraClip. 3. Carotid stenosis. 4. Hypertension. 5. Dyslipidemia. 6. History of atrial fibrillation. 7. Gout. PAST SURGICAL HISTORY: 1. MitraClip. 2. Coronary artery bypass grafting in [address] George with THOMPSON to LAD, saphenous vein to right PDA and OM1. 3. Right wrist surgery. 4. Right shoulder surgery. CURRENT MEDICATIONS: At home; 1. Aspirin 81 mg daily. 2. Norvasc 5 mg daily. 3. Coreg 6.25 mg b.i.d. 4. Lasix 40 mg daily. 5. Casodex 50 mg daily. ALLERGIES: PLAVIX AND DEMEROL. SOCIAL HISTORY: He is . He has 2 children. He does not use tobacco. He occasionally drinks alcohol. REVIEW OF SYSTEMS: A 10-point review of systems is negative except as above. PHYSICAL EXAMINATION: GENERAL: This is a well-developed, well-nourished male, resting comfortably in the post stroke unit. HEENT: Sclerae nonicteric. Pupils are equal round bilaterally. NECK: Supple. He has no adenopathy. He has audible bilateral carotid bruits. CHEST: Clear bilaterally. HEART: Rhythm is regular. He has no murmur. ABDOMEN: Soft and nontender. EXTREMITIES: There is no edema. NEUROLOGIC: He has equal strength in upper and lower extremities bilaterally. He has no facial droop. His vision is at his baseline. He has no speech difficulties. DIAGNOSTIC DATA: I have reviewed his CT angiograms. ASSESSMENT AND PLAN: Status post left hemispheric cerebrovascular accident with severe ulcerated plaque in the left carotid. I have discussed treatment options with him. I will discuss the patient with Dr. George and we will make some plans for early next week for intervention. Job ID: [id number]
[2020-02-19] MEDS: Atorvastatin Calcium 40 MG TAB PO SCH (20:24)
[2020-02-20 05:13] LABS: Anion Gap 11 mmol/L (10-20); BUN (Urea Nitrogen) 24 mg/dL (8.4-25.7); Calc. Creatinine Clearance 34 mL/min (70-130); Calcium 7.7 mg/dL (7.8-10.44); Carbon Dioxide 20 mmol/L (23-31); Chloride 112 mmol/L (98-107); Estimated GFR-MDRD 48; Glucose 93 mg/dL (83-110); Potassium 4.7 mmol/L (3.5-5.1); Sodium 138 mmol/L (136-145)
[2020-02-20] MEDS: Enoxaparin Sodium 30 MG/0.3 ML SYRINGE SC SCH (09:01)
[2020-02-20] MEDS: Bicalutamide 50 MG TAB PO SCH (09:01)
[2020-02-20] MEDS: Amlodipine 5 MG TAB PO SCH (09:02)
[2020-02-20] MEDS: Sodium Bicarbonate Tab 325 MG TAB PO SCH ×3 (09:02→20:16)
[2020-02-20] MEDS: Aspirin 325 mg Enteric Coated Tablet PO SCH (09:02)
[2020-02-20] MEDS: Carvedilol 6.25 MG TAB PO SCH ×2 (09:02→20:16)
--- NOTE | 2020-02-20 11:18 | MRI ---
MRI BRAIN WITHOUT CONTRAST: INDICATIONS: CVA FINDINGS: Diffusion weighted images show a large area of restricted diffusion involving the left basal ganglia and left periventricular white matter. This appears to involve the left lentiform nucleus that extend s superiorly into the left periventricular white matter. This would correspond to the CTA, which show ed a left M1 segment occlusion. There are other punctate areas of restricted diffusion identified. There is a subcortical focus seen in the left occipital lobe. There are two or three tiny punctate foci of restricted diffusion in the subcortical left frontal lobe. There may be a small subcortical punctate focus in the right frontal l obe. FLAIR sequence shows moderate chronic ischemic change. Ventricular size is normal. No midline shift. There is edema from the left basal ganglia infarct, producing slight mass effect on the lateral ventr icle. IMPRESSION: 1. Large area of lacunar infarction involving the left basal ganglia and left periventricular white m atter. 2. There are scattered tiny foci of restricted diffusion, indicating other tiny foci of small vessel infarcts, as described above. POS: CHELSEY
--- NOTE | 2020-02-20 12:00 | PDOC.HOSPP ---
- Subjective Encounter Date: 02/20/20 Encounter Time: 11:58 Subjective: Mr. Caballero was seen today in follow-up of acute L basal ganglion infarct. He does not have any complaints. He notes continued improved strength in the right upper and lower extremity. He denies any new complaints. - Objective Vital Signs & Weight: Vital Signs (12 hours) Temp Pulse Resp BP Pulse Ox 02/20/20 11:15 97.8 F 50 L 17 159/64 H 97 02/20/20 09:02 56 L 02/20/20 08:00 97 02/20/20 07:23 98.0 F 56 L 20 159/59 H 97 02/20/20 03:36 98.1 F 54 L 18 155/59 H 96 02/20/20 00:00 98.2 F 55 L 16 147/81 H 94 L Weight Admit Weight 153 lb Weight 153 lb 10.595 oz Most Recent Monitor Data Heart Rate from ECG 64 NIBP 153/81 NIBP BP-Mean 105 Respiration from ECG 22 SpO2 99 I&O: 02/19/20 02/20/20 02/21/20 06:59 06:59 06:59 Intake Total 520 1810 480 Output Total 850 750 250 Balance -330 1060 230 Result Diagrams: 02/19/20 07:46 02/20/20 04:36 Hospitalist ROS - Medication Medications: Active Medications Generic Name Dose Route Start Last Admin Trade Name Zurdoq PRN Reason Stop Dose Admin Amlodipine Besylate 5 mg 02/19/20 09:00 02/20/20 09:02 Norvasc PO 5 mg DAILY RHEA Administration Aspirin 325 mg 02/18/20 09:00 02/20/20 09:02 Ecotrin PO 325 mg DAILY RHEA Administration Atorvastatin Calcium 40 mg 02/17/20 21:00 02/19/20 20:24 Lipitor PO 40 mg HS RHEA Administration Bicalutamide 50 mg 02/19/20 09:00 02/20/20 09:01 Casodex PO 50 mg DAILY RHEA Administration Carvedilol 6.25 mg 02/18/20 21:00 02/20/20 09:02 Coreg PO 6.25 mg BID RHEA Administration Enoxaparin Sodium 30 mg 02/18/20 09:00 02/20/20 09:01 Lovenox SC 30 mg 0900 RHEA Administration Hydralazine HCl 10 mg 02/17/20 11:16 06/25/20 16:13 Apresoline SLOW IVP 10 mg Q4H PRN Administration SBP > 180 or DBP > 105 Sodium Bicarbonate 650 mg 02/18/20 15:00 02/20/20 09:02 Bicarbonate, Sodium PO 650 mg TID RHEA Administration - Exam Eye: PERRL, anicteric sclera ENT: normocephalic atraumatic, no oropharyngeal lesions Heart: RRR, no murmur, no gallops, no rubs, normal peripheral pulses Respiratory: CTAB, no wheezes, no rales, no ronchi, normal chest expansion, no tachypnea, normal percussion Gastrointestinal: soft, non-tender, non-distended, normal bowel sounds Extremities: no cyanosis, no edema Musculoskeletal: normal tone, normal strength, no muscle wasting Psychiatric: normal affect, A&O x 3 Hosp A/P (1) Acute ischemic left MCA stroke Code(s): I63.512 - CEREB INFRC D/T UNSP OCCLS OR STENOS OF LEFT MID CEREB ART Status: Acute (2) CAD (coronary artery disease) Code(s): I25.10 - ATHSCL HEART DISEASE OF [place] CORONARY ARTERY W/O ANG PCTRS Status: Chronic (3) Gout Code(s): M10.9 - GOUT, UNSPECIFIED Status: Chronic (4) Hypertension Code(s): I10 - ESSENTIAL (PRIMARY) HYPERTENSION Status: Chronic - Plan * Acute Left MCA CVA, who is s/p embolectomy, and Mechanical thrombectomy. MRI results noted. He has a large infarct in the left basal ganglion, and other tiny areas of infarction. Echo findings also noted. * Plan is for revascularization during this hospital stay of the left carotid artery * Continue aspirin, Statin, * HTN- blood pressure is stable * CAD- stable
--- NOTE | 2020-02-20 13:11 | PDOC.HOSPP ---
- Subjective Encounter Date: 02/20/20 Subjective: NEUROLOGY PROGRESS NOTE Patient is alert, awake and clinically improved without any focal deficits. MRI Brain consistent with acute infarction in the left basal ganglia. No acute issues overnight. - Objective Vital Signs & Weight: Vital Signs (12 hours) Temp Pulse Resp BP Pulse Ox 02/20/20 11:15 97.8 F 50 L 17 159/64 H 97 02/20/20 09:02 56 L 02/20/20 08:00 97 02/20/20 07:23 98.0 F 56 L 20 159/59 H 97 02/20/20 03:36 98.1 F 54 L 18 155/59 H 96 Weight Admit Weight 153 lb Weight 153 lb 10.595 oz Most Recent Monitor Data Heart Rate from ECG 64 NIBP 153/81 NIBP BP-Mean 105 Respiration from ECG 22 SpO2 99 I&O: 02/19/20 02/20/20 02/21/20 06:59 06:59 06:59 Intake Total 520 1810 960 Output Total 850 750 250 Balance -330 1060 710 Result Diagrams: 02/19/20 07:46 02/20/20 04:36 Radiology Reviewed by me: Yes EKG Reviewed by me: Yes Hospitalist ROS - Review of Systems Constitutional: denies: fever, chills, sweats, weakness, malaise, other Eyes: denies: pain, vision change, conjunctivae inflammation, eyelid inflammation, redness, other ENT: denies: ear pain, ear discharge, nose pain, nose discharge, nose congestion , mouth pain, mouth swelling, throat pain, throat swelling, other Respiratory: denies: cough, dry, shortness of breath, hemoptysis, SOB with excertion, pleuritic pain, sputum, wheezing, other Cardiovascular: denies: chest pain, palpitations, orthopnea, paroxysmal noc. dyspnea, edema, light headedness, other Gastrointestinal: denies: nausea, vomiting, abdominal pain, diarrhea, constipation, melena, hematochezia, other Genitourinary: denies: dysuria, frequency, incontinence, hematuria, retention, other Musculoskeletal: denies: neck pain, shoulder pain, arm pain, back pain, hand pain, leg pain, foot pain, other Skin: denies: rash, lesions, joanne, bruising, other Neurological: denies: weakness, numbness, incoordination, change in speech, confusion, seizures, other - Medication Medications: Active Medications Generic Name Dose Route Start Last Admin Trade Name Freq PRN Reason Stop Dose Admin Amlodipine Besylate 5 mg 02/19/20 09:00 02/20/20 09:02 Norvasc PO 5 mg DAILY RHEA Administration Aspirin 325 mg 02/18/20 09:00 02/20/20 09:02 Ecotrin PO 325 mg DAILY RHEA Administration Atorvastatin Calcium 40 mg 02/17/20 21:00 02/19/20 20:24 Lipitor PO 40 mg HS RHEA Administration Bicalutamide 50 mg 02/19/20 09:00 02/20/20 09:01 Casodex PO 50 mg DAILY RHEA Administration Carvedilol 6.25 mg 02/18/20 21:00 02/20/20 09:02 Coreg PO 6.25 mg BID RHEA Administration Enoxaparin Sodium 30 mg 02/18/20 09:00 02/20/20 09:01 Lovenox SC 30 mg 0900 RHEA Administration Hydralazine HCl 10 mg 02/17/20 11:16 02/17/20 16:13 Apresoline SLOW IVP 10 mg Q4H PRN Administration SBP > 180 or DBP > 105 Sodium Bicarbonate 650 mg 02/18/20 15:00 02/20/20 09:02 Bicarbonate, Sodium PO 650 mg TID [facility]ENDING [facility] TO [facility] Administration - Exam General Appearance: awake alert Eye: PERRL, anicteric sclera ENT: normocephalic atraumatic, no oropharyngeal lesions Neck: supple Heart: RRR Respiratory: CTAB Gastrointestinal: soft Extremities: no cyanosis Skin: normal turgor Neurological: cranial nerve grossly intact, normal sensation to touch, no weakness, no focal deficits, no new deficit Musculoskeletal: normal tone, normal strength, no muscle wasting Psychiatric: normal affect, normal behavior, A&O x 3, oriented to person, oriented to place, oriented to time Hosp A/P (1) Acute ischemic left MCA stroke Code(s): I63.512 - CEREB INFRC D/T UNSP OCCLS OR STENOS OF LEFT MID CEREB ART Status: Acute (2) Chest pain Code(s): R07.9 - CHEST PAIN, UNSPECIFIED Status: Acute (3) CAD (coronary artery disease) Code(s): I25.10 - ATHSCL HEART DISEASE OF [place] CORONARY ARTERY W/O ANG PCTRS Status: Chronic (4) Gout Code(s): M10.9 - GOUT, UNSPECIFIED Status: Chronic (5) Hypertension Code(s): I10 - ESSENTIAL (PRIMARY) HYPERTENSION Status: Chronic - Plan PT/OT, speech therapy, out of bed/ambulate 84 year old with acute stroke s/p tpa and mechanical thrombectomy doing well and focal deficits and speech deficits resolved. MRI brain reviewed which was consistent with acute infarction in the left basal ganglia. Recommend 2D echo to evaluate for Left ventricular function, thrombus or PFO. Telemetry . Neurochecks every 4 hours. Strict BP and BG control . CV surgery input regarding significant ICA stenosis appreciated. Revascularization surgery planned during this stay. Continue Aspirin and high intensity statin for secondary stroke prevention. PT/OT/Speech. Continue medical management per primary team. Plan discussed with the patient.
[2020-02-20] MEDS: Atorvastatin Calcium 40 MG TAB PO SCH (20:16)
[2020-02-21 05:18] LABS: Anion Gap 8 mmol/L (10-20); BUN (Urea Nitrogen) 23 mg/dL (8.4-25.7); Calc. Creatinine Clearance 33 mL/min (70-130); Calcium 7.7 mg/dL (7.8-10.44); Carbon Dioxide 23 mmol/L (23-31); Chloride 112 mmol/L (98-107); Estimated GFR-MDRD 45; Glucose 96 mg/dL (83-110); Potassium 4.8 mmol/L (3.5-5.1); Sodium 138 mmol/L (136-145)
[2020-02-21] MEDS: Sodium Bicarbonate Tab 325 MG TAB PO SCH ×3 (09:06→20:41)
[2020-02-21] MEDS: Enoxaparin Sodium 30 MG/0.3 ML SYRINGE SC SCH (09:07)
[2020-02-21] MEDS: Folic Acid 1 MG TAB PO SCH (09:07)
[2020-02-21] MEDS: Carvedilol 6.25 MG TAB PO SCH ×2 (09:07→20:41)
[2020-02-21] MEDS: Amlodipine 5 MG TAB PO SCH (09:07)
[2020-02-21] MEDS: Aspirin 325 mg Enteric Coated Tablet PO SCH (09:07)
[2020-02-21] MEDS: Cyanocobalamin (Vitamin B-12) 1,000 MCG TAB PO SCH (09:07)
[2020-02-21] MEDS: Bicalutamide 50 MG TAB PO SCH (09:08)
--- NOTE | 2020-02-21 12:10 | PDOC.HOSPP ---
- Subjective Encounter Date: 02/21/20 Subjective: NEUROLOGY PROGRESS NOTE Patient is alert, awake and clinically improved without any focal deficits. MRI Brain consistent with acute infarction in the left basal ganglia. No acute issues overnight. TCAR scheduled during this admission. at bedside. - Objective Vital Signs & Weight: Vital Signs (12 hours) Temp Pulse Pulse Resp BP BP Pulse Ox 02/21/20 11:24 97.2 F L 51 L 18 149/60 H 96 02/21/20 09:15 58 L 176/67 H 02/21/20 09:07 52 L 02/21/20 08:40 97 02/21/20 07:24 98.8 F 52 L 20 152/55 H 97 02/21/20 07:04 94 L 02/21/20 04:00 98.4 F 54 L 18 157/61 H 94 L Weight Admit Weight 153 lb Weight 156 lb 1.6 oz Most Recent Monitor Data Heart Rate from ECG 64 NIBP 153/81 NIBP BP-Mean 105 Respiration from ECG 22 SpO2 99 I&O: 02/20/20 02/21/20 02/22/20 06:59 06:59 06:59 Intake Total 1810 1460 Output Total 750 1100 Balance 1060 360 Result Diagrams: 02/19/20 07:46 02/21/20 04:25 Radiology Reviewed by me: Yes EKG Reviewed by me: Yes Hospitalist ROS - Review of Systems Constitutional: denies: fever, chills, sweats, weakness, malaise, other Eyes: denies: pain, vision change, conjunctivae inflammation, eyelid inflammation, redness, other ENT: denies: ear pain, ear discharge, nose pain, nose discharge, nose congestion , mouth pain, mouth swelling, throat pain, throat swelling, other Respiratory: denies: cough, dry, shortness of breath, hemoptysis, SOB with excertion, pleuritic pain, sputum, wheezing, other Cardiovascular: denies: chest pain, palpitations, orthopnea, paroxysmal noc. dyspnea, edema, light headedness, other Gastrointestinal: denies: nausea, vomiting, abdominal pain, diarrhea, constipation, melena, hematochezia, other Genitourinary: denies: dysuria, frequency, incontinence, hematuria, retention, other Musculoskeletal: denies: neck pain, shoulder pain, arm pain, back pain, hand pain, leg pain, foot pain, other Skin: denies: rash, lesions, joanne, bruising, other Neurological: denies: weakness, numbness, incoordination, change in speech, confusion, seizures, other - Medication Medications: Active Medications Generic Name Dose Route Start Last Admin Trade Name Freq PRN Reason Stop Dose Admin Amlodipine Besylate 5 mg 02/19/20 09:00 02/21/20 09:07 Norvasc PO 5 mg DAILY RHEA Administration Aspirin 325 mg 02/18/20 09:00 02/21/20 09:07 Ecotrin PO 325 mg DAILY RHEA Administration Atorvastatin Calcium 40 mg 02/17/20 21:00 02/20/20 20:16 Lipitor PO 40 mg HS RHEA Administration Bicalutamide 50 mg 02/19/20 09:00 02/21/20 09:08 Casodex PO 50 mg DAILY RHEA Administration Carvedilol 6.25 mg 02/18/20 21:00 02/21/20 09:07 Coreg PO 6.25 mg BID RHEA Administration Cyanocobalamin 1,000 mcg 02/21/20 09:00 02/21/20 09:07 Vitamin B-12 PO 1,000 mcg DAILY RHEA Administration Enoxaparin Sodium 30 mg 02/18/20 09:00 02/21/20 09:07 Lovenox SC 30 mg 09 RHEA Administration Folic Acid 1 mg 02/21/20 09:00 02/21/20 09:07 Folvite PO 1 mg DAILY RHEA Administration Hydralazine HCl 10 mg 02/17/20 11:16 02/17/20 16:13 Apresoline SLOW IVP 10 mg Q4H PRN Administration SBP > 180 or DBP > 105 Sodium Bicarbonate 650 mg 02/18/20 15:00 02/21/20 09:06 Bicarbonate, Sodium PO 650 mg TID RHEA Administration - Exam General Appearance: awake alert Eye: PERRL ENT: normocephalic atraumatic Neck: supple Heart: RRR Respiratory: CTAB Gastrointestinal: soft Extremities: no cyanosis Skin: normal turgor Neurological: cranial nerve grossly intact, normal sensation to touch, no weakness, no focal deficits, no new deficit Musculoskeletal: normal tone, normal strength, no muscle wasting Psychiatric: normal affect, normal behavior, A&O x 3, oriented to person, oriented to place, oriented to time Hosp A/P (1) Acute ischemic left MCA stroke Code(s): I63.512 - CEREB INFRC D/T UNSP OCCLS OR STENOS OF LEFT MID CEREB ART Status: Acute (2) Chest pain Code(s): R07.9 - CHEST PAIN, UNSPECIFIED Status: Acute (3) CAD (coronary artery disease) Code(s): I25.10 - ATHSCL HEART DISEASE OF [place] CORONARY ARTERY W/O ANG PCTRS Status: Chronic (4) Gout Code(s): M10.9 - GOUT, UNSPECIFIED Status: Chronic (5) Hypertension Code(s): I10 - ESSENTIAL (PRIMARY) HYPERTENSION Status: Chronic - Plan PT/OT, out of bed/ambulate 84 year old with acute stroke s/p tpa and mechanical thrombectomy doing well and right sided focal deficits and speech deficits resolved. CV surgery input regarding significant ICA stenosis appreciated. Awaiting Revascularization surgery. MRI brain reviewed which was consistent with acute infarction in the left basal ganglia. 2D echo completed. No thrombus or PFO. Telemetry . Neurochecks every 4 hours. Strict BP and BG control . Continue Aspirin and high intensity statin for secondary stroke prevention. PT/OT/Speech. Continue medical management per primary team. Plan discussed with the patient and the .
[2020-02-21 15:10] VITALS: BMI 22.7
[2020-02-21] MEDS: Atorvastatin Calcium 40 MG TAB PO SCH (20:41)
--- NOTE | 2020-02-21 22:48 | PDOC.HOSPP ---
- Subjective Encounter Date: 02/21/20 Encounter Time: 13:00 Subjective: Patient seen and examined for CVA. No new focal deficits. No new complaints. No overnight events - Objective Vital Signs & Weight: Vital Signs (12 hours) Temp Pulse Resp BP BP Pulse Ox 02/21/20 20:41 158/63 H 02/21/20 20:00 98.0 F 52 L 16 158/63 H 95 02/21/20 15:44 98.4 F 62 17 155/75 H 97 02/21/20 11:24 97.2 F L 51 L 18 149/60 H 96 Weight Admit Weight 153 lb Weight 154 lb Most Recent Monitor Data Heart Rate from ECG 64 NIBP 153/81 NIBP BP-Mean 105 Respiration from ECG 22 SpO2 99 I&O: 02/20/20 02/21/20 02/22/20 06:59 06:59 06:59 Intake Total 1810 1460 750 Output Total 750 1100 400 Balance 1060 360 350 Result Diagrams: 02/19/20 07:46 02/21/20 04:25 EKG Reviewed by me: Yes (Tele SR) Hospitalist ROS - Review of Systems Respiratory: denies: cough, dry, shortness of breath, hemoptysis, SOB with excertion, pleuritic pain, sputum, wheezing, other Cardiovascular: denies: chest pain, palpitations, orthopnea, paroxysmal noc. dyspnea, edema, light headedness, other - Medication Medications: Active Medications Generic Name Dose Route Start Last Admin Trade Name Freq PRN Reason Stop Dose Admin Amlodipine Besylate 5 mg 02/19/20 09:00 02/21/20 09:07 Norvasc PO 5 mg DAILY RHEA Administration Aspirin 325 mg 02/18/20 09:00 02/21/20 09:07 Ecotrin PO 325 mg DAILY RHEA Administration Atorvastatin Calcium 40 mg 02/17/20 21:00 02/21/20 20:41 Lipitor PO 40 mg HS RHEA Administration Bicalutamide 50 mg 02/19/20 09:00 02/21/20 09:08 Casodex PO 50 mg DAILY RHEA Administration Carvedilol 6.25 mg 02/18/20 21:00 02/21/20 20:41 Coreg PO 6.25 mg BID RHEA Administration Cyanocobalamin 1,000 mcg 02/21/20 09:00 02/21/20 09:07 Vitamin B-12 PO 1,000 mcg DAILY RHEA Administration Enoxaparin Sodium 30 mg 02/18/20 09:00 02/21/20 09:07 Lovenox SC 30 mg 0900 RHEA Administration Folic Acid 1 mg 02/21/20 09:00 02/21/20 09:07 Folvite PO 1 mg DAILY RHEA Administration Hydralazine HCl 10 mg 02/17/20 11:16 02/17/20 16:13 Apresoline SLOW IVP 10 mg Q4H PRN Administration SBP > 180 or DBP > 105 Sodium Bicarbonate 650 mg 02/18/20 15:00 02/21/20 20:41 Bicarbonate, Sodium PO 650 mg TID RHEA Administration - Exam General Appearance: NAD Neck: supple, no JVD Heart: RRR, no gallops Respiratory: CTAB, no rales Gastrointestinal: non-tender, normal bowel sounds Extremities: no cyanosis Neurological: no new deficit Psychiatric: A&O x 3 Hosp A/P - Plan DVT proph w/SCDs Acute CVA Left ICA stenosis HtN CKD 3 CAD Chronic Anemia Swallow dys PLAN: Left CEA in AM Cont ASA Cont Statins Cont Coreg Cont other meds as above
[2020-02-22] MEDS ORDERED: Heparin 5,000 UNITS/ML VIAL ONE (06:27)
[2020-02-22] MEDS ORDERED: Protamine Sulfate 50 MG/5 ML VIAL ONE (06:27)
[2020-02-22] MEDS ORDERED: EPINEPHrine 1 MG/ML AMP ONE (06:56)
[2020-02-22] MEDS ORDERED: Bupivacaine 0.25% HCL 30 ML VIAL ONE (06:56)
[2020-02-22] MEDS ORDERED: Lidocaine 1% w/Epinephrine 1:100K 20 ML VIAL ONE (06:56)
[2020-02-22] MEDS ORDERED: Fentanyl 100 MCG/2 ML VIAL ONE (06:59)
[2020-02-22] MEDS: Folic Acid 1 MG TAB PO SCH (09:00)
--- NOTE | 2020-02-22 11:53 | OP ---
DATE OF PROCEDURE: 02/22/2020 PREOPERATIVE DIAGNOSIS: Left carotid stenosis, status post cerebrovascular accident. POSTOPERATIVE DIAGNOSIS: Left carotid stenosis, status post cerebrovascular accident. PROCEDURE PERFORMED: Left carotid endarterectomy with bovine patch angioplasty. ANESTHESIA: General. ESTIMATED BLOOD LOSS: Less than 100. DESCRIPTION OF PROCEDURE: After adequate anesthesia had been obtained, ultrasound was used to guide the incision and the patient was then prepped and draped. Incision was made, carried through the platysma. Dissection was carried out. There was rather intense inflammation around the carotid artery and the vagus nerve line anteriorly and had to be gently dissected off the carotid artery. Following control of the carotid system, the patient was given 7500 units of heparin with a good ACT level. Clamps were applied to the internal and common carotid artery, and tape was placed around the external carotid artery. Arteriotomy was performed through a very friable plaque, following which, the area was thoroughly irrigated. Endarterectomy was performed after placement of a 12-[place] shunt. Area was then thoroughly irrigated again and any loose debris was removed, and a bovine patch was used to close the arteriotomy, removing the shunt, back flushing and forward flushing prior to restoring flow up the external and then internal carotid artery. Protamine was given to partially reverse the heparin and after obtaining good hemostasis, the wound was irrigated and closed in layers. The patient was taken to the recovery room in guarded condition. Job ID: [id number]
[2020-02-22] MEDS ORDERED: Glycopyrrolate 0.2 MG/ML 5 ML SYRINGE ONE ×2 (12:05→15:07)
[2020-02-22] MEDS ORDERED: PHENYLEPHRINE-NS 100 MCG/ML 10 ML SYRINGE ONE (15:07)
[2020-02-22] MEDS ORDERED: Lidocaine 1% PF 5 ML VIAL ONE (15:07)
[2020-02-22] MEDS ORDERED: Ondansetron PF 4 MG/2 ML Vial ONE (15:07)
[2020-02-22] MEDS ORDERED: Dexamethasone 20 MG/5 ML VIAL ONE (15:07)
[2020-02-22] MEDS ORDERED: PROPOFOL 200 MG/20 ML VIAL ONE (15:07)
[2020-02-22] MEDS ORDERED: Vecuronium 10 MG VIAL ONE (15:07)
[2020-02-22] MEDS ORDERED: Nitroglycerin 50 MG/250 ML BOT 250 ML IVPB PRN (18:22)
[2020-02-22] MEDS ORDERED: Ondansetron PF 4 MG/2 ML Vial IVP PRN (18:22)
[2020-02-22] MEDS ORDERED: Fentanyl 100 MCG/2 ML VIAL SLOW IVP PRN (18:22)
[2020-02-22] MEDS ORDERED: Acetaminophen 325 MG TAB PO PRN (18:22)
[2020-02-22] MEDS ORDERED: traMADol HCl 50 MG TAB PO PRN (18:22)
[2020-02-22] MEDS ORDERED: Phenylephrine 10 MG/NS 250 ML 250 ML IVPB PRN (18:22)
[2020-02-22] MEDS: CEFAZOLIN 2 GM in Premix Bag 1 BAG IVPB SCH (18:38)
[2020-02-22] MEDS: Carvedilol 6.25 MG TAB PO SCH ×2 (19:00→21:50)
[2020-02-22] MEDS: Bicalutamide 50 MG TAB PO SCH (19:00)
[2020-02-22] MEDS: Amlodipine 5 MG TAB PO SCH (19:00)
[2020-02-22] MEDS: Cyanocobalamin (Vitamin B-12) 1,000 MCG TAB PO SCH (19:00)
[2020-02-22] MEDS: Sodium Bicarbonate Tab 325 MG TAB PO SCH ×2 (19:00→21:49)
[2020-02-22] MEDS: Aspirin 325 mg Enteric Coated Tablet PO SCH (19:00)
[2020-02-22] MEDS: Atorvastatin Calcium 40 MG TAB PO SCH (21:50)
[2020-02-22] MEDS: Sodium Chloride 0.9% 1,000 ML IV SCH (21:50)
[2020-02-22] MEDS: Enoxaparin Sodium 30 MG/0.3 ML SYRINGE SC SCH (23:26)
[2020-02-23] MEDS: CEFAZOLIN 2 GM in Premix Bag 1 BAG IVPB SCH ×2 (01:53→11:39)
[2020-02-23] MEDS: Sodium Chloride 0.9% 1,000 ML IV SCH (04:42)
[2020-02-23 07:12] VITALS: TEMP 97.6
[2020-02-23] MEDS: Amlodipine 5 MG TAB PO SCH (08:18)
[2020-02-23] MEDS: Bicalutamide 50 MG TAB PO SCH (08:19)
[2020-02-23] MEDS: Aspirin 325 mg Enteric Coated Tablet PO SCH (08:19)
[2020-02-23] MEDS: Sodium Bicarbonate Tab 325 MG TAB PO SCH (08:19)
[2020-02-23] MEDS: Folic Acid 1 MG TAB PO SCH (08:19)
[2020-02-23] MEDS: Cyanocobalamin (Vitamin B-12) 1,000 MCG TAB PO SCH (08:19)
[2020-02-23] MEDS: Carvedilol 6.25 MG TAB PO SCH (08:19)
[2020-02-23 08:29] VITALS: BP 152/48
--- NOTE | 2020-02-23 09:12 | PDOC.HOSPP ---
- Subjective Encounter Date: 02/22/20 Encounter Time: 17:00 Subjective: Patient seen and examined in PACU for acute CVA. No new focal deficits. s/p CEA. No new complaints. No overnight events - Objective Vital Signs & Weight: Vital Signs (12 hours) Temp Pulse Resp BP BP Pulse Ox 02/23/20 08:18 47 L 152/48 H 02/23/20 07:12 97.6 F 02/23/20 03:28 99.8 F H 02/23/20 00:02 127/48 L 02/22/20 23:49 98.8 F 02/22/20 22:00 96 02/22/20 21:28 98.5 F 18 Weight Admit Weight 153 lb Weight 154 lb Most Recent Monitor Data Heart Rate from ECG 46 NIBP 152/48 NIBP BP-Mean 82 Respiration from ECG 15 SpO2 98 I&O: 02/22/20 02/23/20 02/24/20 06:59 06:59 06:59 Intake Total 950 970 Output Total 400 375 Balance 550 595 Result Diagrams: 02/19/20 07:46 02/21/20 04:25 EKG Reviewed by me: Yes (Tele SR) Hospitalist ROS - Review of Systems Cardiovascular: denies: chest pain, palpitations, orthopnea, paroxysmal noc. dyspnea, edema, light headedness, other Gastrointestinal: denies: nausea, vomiting, abdominal pain, diarrhea, constipation, melena, hematochezia, other - Medication Medications: Active Medications Generic Name Dose Route Start Last Admin Trade Name Freq PRN Reason Stop Dose Admin Amlodipine Besylate 5 mg 02/19/20 09:00 02/23/20 08:18 Norvasc PO 5 mg DAILY RHEA Administration Aspirin 325 mg 02/18/20 09:00 02/23/20 08:19 Ecotrin PO 325 mg DAILY RHEA Administration Atorvastatin Calcium 40 mg 02/17/20 21:00 02/22/20 21:50 Lipitor PO 40 mg HS RHEA Administration Bicalutamide 50 mg 02/19/20 09:00 02/23/20 08:19 Casodex PO 50 mg DAILY RHEA Administration Carvedilol 6.25 mg 02/18/20 21:00 02/23/20 08:19 Coreg PO Not Given BID RHEA Cyanocobalamin 1,000 mcg 02/21/20 09:00 02/23/20 08:19 Vitamin B-12 PO 1,000 mcg DAILY RHEA Administration Folic Acid 1 mg 02/21/20 09:00 02/23/20 08:19 Folvite PO 1 mg DAILY RHEA Administration Hydralazine HCl 10 mg 02/17/20 11:16 02/17/20 16:13 Apresoline SLOW IVP 10 mg Q4H PRN Administration SBP > 180 or DBP > 105 Cefazolin Sodium/Dextrose 2 gm 50 mls @ 100 mls/hr 02/22/20 18:30 02/23/20 01 :53 / Device IVPB 02/23/20 10:59 50 mls Q8H RHEA Administration Sodium Chloride 1,000 mls @ 100 mls/hr 02/22/20 18:22 02/23/20 04:42 Normal Saline 0.9% IV Not Given .Q10H RHEA Sodium Bicarbonate 650 mg 02/18/20 15:00 02/23/20 08:19 Bicarbonate, Sodium PO 650 mg TID RHEA Administration - Exam General Appearance: NAD Heart: RRR, no gallops Respiratory: CTAB, no rales Gastrointestinal: soft, non-distended Extremities: no cyanosis Neurological: no new deficit Hosp A/P - Plan DVT proph w/SCDs Acute CVA Left ICA stenosis s/p CEA HtN CKD 3 CAD Chronic Anemia Swallow dys PLAN: s/p Left CEA Cont ASA/Statins Cont Coreg Cont other meds as above
--- NOTE | 2020-02-23 11:41 | PDOC.HOSPP ---
- Subjective Encounter Date: 02/22/20 Subjective: NEUROLOGY PROGRESS NOTE Patient is alert, awake and clinically improved without any focal deficits. No acute issues overnight. S/P TCAR yesterday and doing well - Objective Vital Signs & Weight: Vital Signs (12 hours) Temp Pulse BP BP Pulse Ox 02/23/20 08:18 47 L 152/48 H 02/23/20 08:00 98 02/23/20 07:12 97.6 F 02/23/20 03:28 99.8 F H 02/23/20 00:02 127/48 L 02/22/20 23:49 98.8 F Weight Admit Weight 153 lb Weight 154 lb Most Recent Monitor Data Heart Rate from ECG 49 NIBP 133/46 NIBP BP-Mean 75 Respiration from ECG 19 SpO2 98 I&O: 02/22/20 02/23/20 02/24/20 06:59 06:59 06:59 Intake Total 950 970 Output Total 400 375 Balance 550 595 Result Diagrams: 02/19/20 07:46 02/21/20 04:25 Radiology Reviewed by me: Yes EKG Reviewed by me: Yes Hospitalist ROS - Review of Systems Constitutional: denies: fever, chills, sweats, weakness, malaise, other Eyes: denies: pain, vision change, conjunctivae inflammation, eyelid inflammation, redness, other ENT: denies: ear pain, ear discharge, nose pain, nose discharge, nose congestion , mouth pain, mouth swelling, throat pain, throat swelling, other Respiratory: denies: cough, dry, shortness of breath, hemoptysis, SOB with excertion, pleuritic pain, sputum, wheezing, other Cardiovascular: denies: chest pain, palpitations, orthopnea, paroxysmal noc. dyspnea, edema, light headedness, other Gastrointestinal: denies: nausea, vomiting, abdominal pain, diarrhea, constipation, melena, hematochezia, other Genitourinary: denies: dysuria, frequency, incontinence, hematuria, retention, other Musculoskeletal: denies: neck pain, shoulder pain, arm pain, back pain, hand pain, leg pain, foot pain, other Skin: denies: rash, lesions, joanne, bruising, other Neurological: reports: weakness, numbness, incoordination, change in speech, confusion, seizures, other - Medication Medications: Active Medications Generic Name Dose Route Start Last Admin Trade Name Freq PRN Reason Stop Dose Admin Amlodipine Besylate 5 mg 02/19/20 09:00 02/23/20 08:18 Norvasc PO 5 mg DAILY RHEA Administration Aspirin 325 mg 02/18/20 09:00 02/23/20 08:19 Ecotrin PO 325 mg DAILY RHEA Administration Atorvastatin Calcium 40 mg 02/17/20 21:00 02/22/20 21:50 Lipitor PO 40 mg HS RHEA Administration Bicalutamide 50 mg 02/19/20 09:00 02/23/20 08:19 Casodex PO 50 mg DAILY RHEA Administration Carvedilol 6.25 mg 02/18/20 21:00 02/23/20 08:19 Coreg PO Not Given BID [facility] Cyanocobalamin 1,000 mcg 02/21/20 09:00 02/23/20 08:19 Vitamin B-12 PO 1,000 mcg DAILY RHEA Administration Folic Acid 1 mg 02/21/20 09:00 02/23/20 08:19 Folvite PO 1 mg DAILY RHEA Administration Hydralazine HCl 10 mg 02/17/20 11:16 02/17/20 16:13 Apresoline SLOW IVP 10 mg Q4H PRN Administration SBP > 180 or DBP > 105 Sodium Chloride 1,000 mls @ 100 mls/hr 02/22/20 18:22 02/23/20 04:42 Normal Saline 0.9% IV Not Given .Q10H RHEA Sodium Bicarbonate 650 mg 02/18/20 15:00 02/23/20 08:19 Bicarbonate, Sodium PO 650 mg TID RHEA Administration - Exam General Appearance: awake alert Eye: PERRL ENT: normocephalic atraumatic Neck: supple Heart: RRR Respiratory: CTAB Gastrointestinal: soft Extremities: no cyanosis, no clubbing, no edema Skin: normal turgor Neurological: cranial nerve grossly intact, normal sensation to touch, no weakness, no focal deficits, no new deficit Musculoskeletal: normal tone, normal strength, no muscle wasting Psychiatric: normal affect, normal behavior, A&O x 3, oriented to person, oriented to place, oriented to time Hosp A/P (1) Acute ischemic left MCA stroke Code(s): I63.512 - CEREB INFRC D/T UNSP OCCLS OR STENOS OF LEFT MID CEREB ART Status: Acute (2) Chest pain Code(s): R07.9 - CHEST PAIN, UNSPECIFIED Status: Acute (3) CAD (coronary artery disease) Code(s): I25.10 - ATHSCL HEART DISEASE OF [place] CORONARY ARTERY W/O ANG PCTRS Status: Chronic (4) Gout Code(s): M10.9 - GOUT, UNSPECIFIED Status: Chronic (5) Hypertension Code(s): I10 - ESSENTIAL (PRIMARY) HYPERTENSION Status: Chronic - Plan out of bed/ambulate 84 year old with acute stroke s/p tpa and mechanical thrombectomy doing well and right sided focal deficits and speech deficits resolved. TCAR performed by CV surgery yesterday and he is doing well. MRI brain reviewed which was consistent with acute infarction in the left basal ganglia. 2D echo completed. No thrombus or PFO. Telemetry . Neurochecks every 4 hours. Strict BP and BG control . Continue Aspirin and high intensity statin for secondary stroke prevention. PT/OT/Speech. Continue medical management per primary team. Plan discussed with the patient and the primary attending Dr. Reynolds.
--- NOTE | 2020-02-24 13:23 | DIS ---
DATE OF ADMISSION: 02/17/2020 DATE OF DISCHARGE: 02/23/2020 DISCHARGE DISPOSITION: Home. FOLLOWUP: 1. Follow up with primary care physician, Dr. Ángel Carlos in 1 week. 2. Follow up with Dr. Ike George in 2 weeks. 3. Follow up with Neurology, Dr. Hodge in 2 weeks. DISCHARGE MEDICATIONS: 1. Lipitor 40 mg at bedtime. 2. Aspirin 81 mg daily. 3. Carvedilol 3.125 mg b.i.d. 4. Vitamin B12 of 1000 mcg daily. 5. Folic acid 1 mg daily. All other home medications were left unchanged. The patient was seen and examined on the day of discharge. Denies any new complaints. No chest pain, shortness of breath, or palpitations reported. BRIEF HOSPITAL COURSE: The patient is an 84-year-old male with hypertension, hyperlipidemia, and coronary artery disease, presented to the hospital with acute onset of right-sided weakness. Initial CT scan of the brain showed possible small early acute infarction in the left upper cerebral white matter without any bleeding. CT angiogram of the head and neck showed acute thrombus in the M1 segment of the left MCA with a large region of left MCA territory ischemia with severe stenosis of the proximal left internal carotid artery. The patient was evaluated by Dr. Ike Brewer. He received tPA in the emergency room followed by mechanical thrombectomy with complete rastafari of the blood flow. The patient was evaluated by Neurology and cardiovascular as well. Echocardiogram showed ejection fraction 60% to 65% with grade 3/3 diastolic dysfunction, [id number] tricuspid regurgitation, and moderately dilated left atrium. He was monitored in the stroke unit. On February 22, 2020, he underwent left carotid endarterectomy with bovine patch angioplasty. He will be discharged home on 81 mg aspirin per Neurology. He appears stable for discharge. He was extensively counseled on lifestyle modification. DIAGNOSTIC TESTS: MRI of the brain showed large area of lacunar infarction involving the left basal ganglia and left periventricular white matter. FINAL DIAGNOSES: 1. Acute cerebrovascular accident as discussed above. 2. Left internal carotid stenosis, status post carotid endarterectomy. 3. Hypertension. 4. Chronic diastolic heart failure. 5. Chronic kidney disease, stage 3. 6. Coronary artery disease. 7. Chronic anemia. 8. Swallow dysfunction, started on modified diet. 9. Chronic anemia suspected due to nutritional deficiency. 10. Chronic metabolic acidosis probably secondary to renal insufficiency. SIGNIFICANT LABORATORY DATA: Fasting lipid profile showed LDL 79 with cholesterol 121, triglycerides 79. Time coordinating the discharge of this patient was 35 minutes. Job ID: [id number]
== END 2020-02-23 12:49 | disposition home or self-care (01) | DRG 24 ==
LOC: ERS 09:18 → CCL 09:18 → ERS 10:18 → EDSTATUS 11:48 → CCU 13:45 → 2SE 02-18 12:19 → CCU 02-22 15:32 → IMCU/EMU 02-22 21:30
PROVIDERS: ADMIT Neurological Surgery; ATTEND Neurological Surgery
PROC: 03CG3ZZ Extirpation of Matter from Intracranial Artery, Percutaneous Approach (ICD-10-PCS; principal; 2020-02-17)
PROC: 3E03317 Introduction of Other Thrombolytic into Peripheral Vein, Percutaneous Approach (ICD-10-PCS; 2020-02-17)
PROC: 03CG3Z7 Extirpation of Matter from Intracranial Artery using Stent Retriever, Percutaneous Approach (ICD-10-PCS; 2020-02-22)
PROC: 03UL3KZ Supplement Left Internal Carotid Artery with Nonautologous Tissue Substitute, Percutaneous Approach (ICD-10-PCS; 2020-02-22)
DX: I63.512 Cerebral infarction due to unspecified occlusion or stenosis of left middle cerebral artery (principal); G81.91 Hemiplegia, unspecified affecting right dominant side; R47.1 Dysarthria and anarthria; R29.701 NIHSS score 1; I65.22 Occlusion and stenosis of left carotid artery; I12.9 Hypertensive chronic kidney disease with stage 1 through stage 4 chronic kidney disease, or unspecified chronic kidney disease; N18.3 Chronic kidney disease, stage 3 (moderate); D63.1 Anemia in chronic kidney disease; E78.5 Hyperlipidemia, unspecified; I25.10 Atherosclerotic heart disease of native coronary artery without angina pectoris; M10.9 Gout, unspecified; I48.91 Unspecified atrial fibrillation; Z88.8 Allergy status to other drugs, medicaments and biological substances; Z95.5 Presence of coronary angioplasty implant and graft; Z95.2 Presence of prosthetic heart valve; Z88.5 Allergy status to narcotic agent; Z79.82 Long term (current) use of aspirin; Z79.899 Other long term (current) drug therapy
CPT/HCPCS: 0042T; 36415; 36416; 37185; 70450; 70496; 70498; 70551; 80048; 80053; 80061; 84484; 85025; 85610; 85730; 86850; 86900; 86901; 93005; 93306; C1757; C1887; J0171; J0360; J0690; J1100; J1642; J1644; J1650; J2001; J2405; J2704; J2720; J2997; J3010; Q9967; S0020

== ENCOUNTER 2020-06-08 08:46 | Emergency (ER) | payer MEDICARE, OTHER ==
[2020-06-08 09:29] LABS: #Eosinphils 0.2 thou/uL (0.0-0.7); #Monocytes 0.2 thou/uL (0.11-0.59); #Neutrophils 2.3 thou/uL (1.40-6.50); %Basophils 0.3 % (0.0-1.0); %Eosinophils 5.1 % (0.0-10.0); %Lymphocytes 26.9 % (21.0-51.0); %Neutrophils 61.7 % (42.0-75.0); Hemoglobin 9.5 g/dL (14.0-18.0); Mean Corpuscular HGB CONC 33.1 g/dL (32.0-36.0); Mean Corpuscular Hemoglobin 35.1 pg (27.0-31.0); Mean Platelet Volume 8.6 fL (7.4-10.4); Platelet Count 107 thou/uL (130-400); RBC Distribution Width 12.2 % (11.5-14.5); Red Blood Cell (RBC) Count 2.71 mill/uL (4.70-6.10); White Blood Cell (WBC) Count 3.7 thou/uL (4.8-10.8)
[2020-06-08 09:42] LABS: MDiff Complete? YES; Platelet Morphology Comment Appears Decreased; Polychromasia SLIGHT = 2-3 cells (100X) (0-2/hpf)
--- NOTE | 2020-06-08 09:49 | RAD ---
PORTABLE CHEST: Date: 06/08/2020 HISTORY: Dizziness. COMPARISON: 07/03/2019. FINDINGS: Lungs are clear. No infiltrate. No evidence of vascular congestion or edema. No effusion. Heart size upper normal and stable. Postop sternotomy changes. IMPRESSION: No acute process. POS: AH
[2020-06-08 09:57] LABS: ALT (SGPT) 15 U/L (8-55); AST (SGOT) 15 U/L (5-34); Albumin 3.8 g/dL (3.4-4.8); Alkaline Phosphatase 79 U/L (40-110); Anion Gap 9 mmol/L (10-20); BUN (Urea Nitrogen) 32 mg/dL (8.4-25.7); Bilirubin, Total 0.6 mg/dL (0.2-1.2); Calc. Creatinine Clearance 0 mL/min (70-130); Calcium 8.6 mg/dL (7.8-10.44); Carbon Dioxide 24 mmol/L (23-31); Chloride 110 mmol/L (98-107); Estimated GFR-MDRD 47; Globulin 2.5 g/dL (2.4-3.5); Glucose 110 mg/dL (83-110); Protein, Total 6.3 g/dL (5.8-8.1); Sodium 138 mmol/L (136-145)
--- NOTE | 2020-06-08 09:58 | CT ---
CT HEAD WITHOUT CONTRAST: Date: 06/08/2020 INDICATION: Dizziness. History of stroke. Comparison made to head CT of 02/18/2020. FINDINGS: Cortical volume loss is again seen over the frontal lobes. Ventricles remain normal size and position . Encephalomalacia in the left basal ganglia is now seen at the site of the previously described infarc t noted on 02/18/2020. Chronic ischemic white matter changes appear stable. There is no evidence of a cute mass, hemorrhage, or cortical infarct. Sinuses are clear. IMPRESSION: Volume loss at site of left basal ganglia infarct noted on prior exam consistent with interval evolut ion of this infarct. Chronic ischemic changes appear stable. No acute process identified. POS: NURYS
[2020-06-08 11:35] LABS: Bilirubin Negative (Negative); Blood, Urine 3+ (Negative); Clarity Clear (Clear); Glucose, Urine (Dipstick) Normal (Negative); Ketone, Urine Negative (Negative); Leukocyte Negative Leu/uL (Negative); Nitrite Negative (Negative); Protein, Urine (Dipstick) 30 mg/dL (Neg-Trace); RBC/HPF 21-50 HPF (0-3); Specific Gravity, Urine 1.013 (1.002-1.036); Squamous Epithelial 0-3 HPF (0-3); Urobilinogen Normal mg/dL (Less than 2); pH, Urine 5.5 (5.0-9.0)
[2020-06-08 11:44] LABS: Bacteria/HPF None Seen HPF (None Seen); WBC/HPF 0-3 HPF (0-3)
--- NOTE | 2020-06-10 11:04 | EKG ---
Test Reason : Blood Pressure : / mmHG Vent. Rate : 053 BPM Atrial Rate : 053 BPM P-R Int : 136 ms QRS Dur : 084 ms QT Int : 496 ms P-R-T Axes : 066 022 086 degrees QTc Int : 465 ms Sinus bradycardia Possible Left atrial enlargement Nonspecific T wave abnormality Abnormal ECG Confirmed by FADI VERONICA DO ([id number]), news editor HOLLY GALE ([id number]) on 06/10/2020 11:03:41 AM Referred By: Confirmed By:FADI VERONICA DO
== END 2020-06-08 11:48 | disposition home or self-care (01) ==
LOC: ERS 08:46
DX: R42 Dizziness and giddiness (principal); R29.700 NIHSS score 0; M10.9 Gout, unspecified; E78.5 Hyperlipidemia, unspecified; I10 Essential (primary) hypertension; Z86.73 Personal history of transient ischemic attack (TIA), and cerebral infarction without residual deficits
CPT/HCPCS: 70450; 71045; 80053; 81003; 81015; 84484; 85025; 93005

== ENCOUNTER 2020-12-27 09:13 | Outpatient (CLI) | payer MEDICARE, OTHER ==
[2020-12-27] MEDS ORDERED: Iopamidol 370 76% 100 ML VIAL ONE (14:50)
== END 2020-12-27 09:14 | disposition home or self-care (01) ==
LOC: CT 09:13
PROVIDERS: ATTEND Internal Medicine Hematology & Oncology
DX: C61 Malignant neoplasm of prostate (principal); C79.51 Secondary malignant neoplasm of bone; K62.89 Other specified diseases of anus and rectum
CPT/HCPCS: 74177; 78306; A9503; Q9967

== ENCOUNTER 2021-02-16 11:40 | Outpatient (CLI) | payer MEDICARE, OTHER | END 2021-02-16 11:41 | disposition home or self-care (01) | LOC: BICMRI 11:40 | PROVIDERS: ATTEND Radiology Radiation Oncology | DX: C79.51 Secondary malignant neoplasm of bone (principal); N28.1 Cyst of kidney, acquired; M47.816 Spondylosis without myelopathy or radiculopathy, lumbar region | CPT/HCPCS: 70210; 72146; 72148 ==

== ENCOUNTER 2021-04-11 10:33 | Outpatient (CLI) | payer MEDICARE, OTHER | END 2021-04-11 10:34 | disposition home or self-care (01) | LOC: EDBD → SCSMRI 10:33 | PROVIDERS: ATTEND Radiology Radiation Oncology | DX: C79.51 Secondary malignant neoplasm of bone (principal); C61 Malignant neoplasm of prostate; M47.812 Spondylosis without myelopathy or radiculopathy, cervical region; M48.02 Spinal stenosis, cervical region; M48.8X2 Other specified spondylopathies, cervical region | CPT/HCPCS: 72141 ==

== ENCOUNTER 2021-08-03 17:23 | Observation (INO) | payer MEDICARE, OTHER ==
[2021-08-03] MEDS ORDERED: Acetaminophen 325 MG TAB PO PRN (20:45)
[2021-08-03] MEDS ORDERED: Ondansetron ODT 4 MG TAB SL PRN (20:45)
[2021-08-03] MEDS ORDERED: Ondansetron PF 4 MG/2 ML Vial IVP PRN (20:45)
[2021-08-03] MEDS ORDERED: Sodium Chloride 0.9% 1,000 ML IV SCH (20:45)
[2021-08-03] MEDS ORDERED: Bisacodyl 5 MG TAB PO PRN (21:51)
[2021-08-03] MEDS ORDERED: Senokot S 8.6-50 MG TAB PO PRN (21:51)
[2021-08-03] MEDS ORDERED: Calcium Carbonate 500 MG ChewTAB PO PRN (21:51)
[2021-08-03 21:57] VITALS: BMI 21.7
[2021-08-03] MEDS ORDERED: Melatonin 3 MG TAB PO PRN (22:00)
[2021-08-03] MEDS ORDERED: Colchicine 0.6 MG TAB PO SCH (23:30)
[2021-08-04] MEDS: Sodium Chloride 0.9% 1,000 ML IV SCH ×2 (00:10→19:07)
[2021-08-04 01:27] LABS: Anisocytosis SLIGHT = 6-15 cells (100X) (0-5/hpf); Band 14 % (5-11); Hemoglobin 7.9 g/dL (14.0-18.0); Hypochromia SLIGHT = 6-15 cells (100X) (0-5/hpf); Lymphocytes 1 % (21-51); MDiff Complete? YES; Macrocytosis MODERATE=16-30 cells (100X) (0-5/hpf); Mean Corpuscular HGB CONC 30.7 g/dL (32.0-36.0); Mean Corpuscular Hemoglobin 34.8 pg (27.0-31.0); Mean Platelet Volume 7.6 fL (7.4-10.4); Metamyelocyte 6 % (0-0); Myelocyte 8 % (0-0); Neutrophil 71 % (42-75); Platelet Count 125 thou/uL (130-400); Platelet Morphology Comment Appears Decreased; Polychromasia SLIGHT = 2-3 cells (100X) (0-2/hpf); RBC Distribution Width 15.1 % (11.5-14.5); Red Blood Cell (RBC) Count 2.28 mill/uL (4.70-6.10); Stomatocytes SLIGHT = 2-5 cells (100X) (0-1/hpf); Tear Drops SLIGHT = 2-5 cells (100X) (0-1/hpf); White Blood Cell (WBC) Count 60.8 thou/uL (4.8-10.8)
[2021-08-04 07:01] LABS: ALT (SGPT) 12 U/L (8-55); AST (SGOT) 14 U/L (5-34); Albumin 2.8 g/dL (3.4-4.8); Alkaline Phosphatase 99 U/L (40-110); Anion Gap 12 mmol/L (10-20); BUN (Urea Nitrogen) 26 mg/dL (8.4-25.7); Bilirubin, Total 0.5 mg/dL (0.2-1.2); Calc. Creatinine Clearance 42 mL/min (70-130); Calcium 7.7 mg/dL (7.8-10.44); Carbon Dioxide 20 mmol/L (23-31); Cardiac Risk 6.7 (Less than 4.5); Chloride 112 mmol/L (98-107); Cholesterol 141 mg/dl (< 200 Desired); Globulin 2.1 g/dL (2.4-3.5); Glucose 90 mg/dL (83-110); HDL Cholesterol 21 mg/dL (>60 Neg Risk); Iron 115 ug/dL (65-175); Iron Binding Capacity, Total 118 mcg/dL (261-462); LDL Cholesterol, Calculated 79 mg/dL; Potassium 4.7 mmol/L (3.5-5.1); Protein, Total 4.9 g/dL (5.8-8.1); Sodium 139 mmol/L (136-145); Triglycerides 206 mg/dL (Less than 150)
[2021-08-04 07:05] LABS: Anisocytosis MODERATE=16-30 cells (100X) (0-5/hpf); Band 6 % (5-11); Hemoglobin 7.7 g/dL (14.0-18.0); Lymphocytes 2 % (21-51); MDiff Complete? YES; Macrocytosis SLIGHT = 6-15 cells (100X) (0-5/hpf); Mean Corpuscular HGB CONC 31.3 g/dL (32.0-36.0); Mean Corpuscular Hemoglobin 35.4 pg (27.0-31.0); Mean Platelet Volume 7.9 fL (7.4-10.4); Neutrophil 92 % (42-75); Platelet Count 117 thou/uL (130-400); Platelet Morphology Comment Appears Decreased; RBC Distribution Width 15.3 % (11.5-14.5); Red Blood Cell (RBC) Count 2.18 mill/uL (4.70-6.10); Stomatocytes SLIGHT = 2-5 cells (100X) (0-1/hpf); Tear Drops SLIGHT = 2-5 cells (100X) (0-1/hpf); White Blood Cell (WBC) Count 51.1 thou/uL (4.8-10.8)
[2021-08-04 08:00] LABS: Ferritin 1989.21 ng/mL (22-322)
[2021-08-04] MEDS: Ferrous Sulfate 325 MG TAB PO SCH (08:47)
[2021-08-04] MEDS: Carvedilol 6.25 MG TAB PO SCH ×2 (08:47→17:01)
[2021-08-04] MEDS: Amlodipine 5 MG TAB PO SCH (08:48)
[2021-08-04] MEDS: Calcitriol 0.25 MCG CAP PO SCH (08:48)
[2021-08-04] MEDS: Famotidine/PF 20 mg/2ml Vial SLOW IVP SCH (08:48)
[2021-08-04] MEDS: Colchicine 0.6 MG TAB PO SCH ×2 (08:48→21:58)
[2021-08-04] MEDS ORDERED: Aspirin 81 mg Enteric Coated Tablet PO SCH (15:15)
[2021-08-04 18:17] LABS: SARS-CoV-2 PCR by NAA Not Detected (NotDetected)
[2021-08-04] MEDS ORDERED: Atorvastatin Calcium 40 MG TAB PO SCH (21:00)
[2021-08-05 06:04] LABS: Anisocytosis MODERATE=16-30 cells (100X) (0-5/hpf); Band 15 % (5-11); Hemoglobin 7.3 g/dL (14.0-18.0); Lymphocytes 2 % (21-51); MDiff Complete? YES; Mean Corpuscular HGB CONC 30.4 g/dL (32.0-36.0); Mean Corpuscular Hemoglobin 36.6 pg (27.0-31.0); Mean Platelet Volume 9.5 fL (7.4-10.4); Metamyelocyte 4 % (0-0); Monocytes 1 % (0-10); Myelocyte 11 % (0-0); Neutrophil 67 % (42-75); Platelet Count 61 thou/uL (130-400); Platelet Morphology Comment Appears Decreased; Polychromasia SLIGHT = 2-3 cells (100X) (0-2/hpf); Tear Drops SLIGHT = 2-5 cells (100X) (0-1/hpf); White Blood Cell (WBC) Count 28.8 thou/uL (4.8-10.8)
[2021-08-05 06:05] LABS: Anion Gap 12 mmol/L (10-20); BUN (Urea Nitrogen) 24 mg/dL (8.4-25.7); Calc. Creatinine Clearance 49 mL/min (70-130); Calcium 7.2 mg/dL (7.8-10.44); Carbon Dioxide 16 mmol/L (23-31); Chloride 113 mmol/L (98-107); Glucose 84 mg/dL (83-110); Magnesium 1.3 mg/dL (1.6-2.6); Phosphorus 2.7 mg/dL (2.3-4.7); Potassium 4.8 mmol/L (3.5-5.1); Sodium 136 mmol/L (136-145)
[2021-08-05] MEDS ORDERED: Magnesium 2 GM/50 ML 4 GM in Premix Bag 1 BAG IVPB SCH (06:45)
[2021-08-05] MEDS ORDERED: Magnesium Sulfate 4 GM in Sodium Chloride 0.9% 250 ML 250 ML IVPB SCH (07:30)
[2021-08-05] MEDS: Amlodipine 5 MG TAB PO SCH (08:21)
[2021-08-05] MEDS: Ferrous Sulfate 325 MG TAB PO SCH (08:21)
[2021-08-05] MEDS: Calcitriol 0.25 MCG CAP PO SCH (08:21)
[2021-08-05] MEDS: Famotidine/PF 20 mg/2ml Vial SLOW IVP SCH (08:21)
[2021-08-05] MEDS: Colchicine 0.6 MG TAB PO SCH (08:22)
[2021-08-05] MEDS: Carvedilol 6.25 MG TAB PO SCH (08:22)
[2021-08-05] MEDS ORDERED: Aspirin 81 mg Enteric Coated Tablet PO SCH (09:00)
[2021-08-05 12:09] VITALS: TEMP 98
[2021-08-05 13:04] VITALS: BP 146/59
== END 2021-08-05 13:55 | disposition home or self-care (01) ==
LOC: NEURO 18:40
PROVIDERS: ADMIT Family Medicine; ATTEND Family Medicine
DX: R42 Dizziness and giddiness (principal); R53.1 Weakness; R55 Syncope and collapse; I69.351 Hemiplegia and hemiparesis following cerebral infarction affecting right dominant side; I48.20 Chronic atrial fibrillation, unspecified; C61 Malignant neoplasm of prostate; C79.51 Secondary malignant neoplasm of bone; M10.9 Gout, unspecified; I25.10 Atherosclerotic heart disease of native coronary artery without angina pectoris; I12.0 Hypertensive chronic kidney disease with stage 5 chronic kidney disease or end stage renal disease; N18.6 End stage renal disease; N17.9 Acute kidney failure, unspecified; D72.829 Elevated white blood cell count, unspecified; D53.9 Nutritional anemia, unspecified; D69.6 Thrombocytopenia, unspecified; I65.21 Occlusion and stenosis of right carotid artery; I08.1 Rheumatic disorders of both mitral and tricuspid valves; Z79.52 Long term (current) use of systemic steroids; Z79.82 Long term (current) use of aspirin; Z79.899 Other long term (current) drug therapy; Z88.5 Allergy status to narcotic agent; Z88.8 Allergy status to other drugs, medicaments and biological substances; Z95.1 Presence of aortocoronary bypass graft; Z20.822 Contact with and (suspected) exposure to COVID-19; I48.91 Unspecified atrial fibrillation; Z85.46 Personal history of malignant neoplasm of prostate
CPT/HCPCS: 70450; 70551; 71045 ×2; 80048; 80053; 80061; 82728; 83036; 83540; 83550; 83735; 84100; 84484; 84550; 85025 ×2; 93005; 93306; 93880; 96374; 96375; 96376; 97116 ×2; 97139 ×3; 97535; 99285; G0378 ×3; U0003; U0005; 36415; 84443; 85060; J3475; J7050; S0028

== ENCOUNTER 2021-08-12 20:11 | Observation (INO) | payer MEDICARE, OTHER ==
[2021-08-12 21:05] LABS: Hemoglobin 7.4 g/dL (14.0-18.0); Mean Corpuscular HGB CONC 30.3 g/dL (32.0-36.0); Mean Corpuscular Hemoglobin 34.5 pg (27.0-31.0); Mean Platelet Volume 7.8 fL (7.4-10.4); Platelet Count 147 thou/uL (130-400); RBC Distribution Width 14.9 % (11.5-14.5); Red Blood Cell (RBC) Count 2.15 mill/uL (4.70-6.10)
[2021-08-12 21:17] LABS: ALT (SGPT) 10 U/L (8-55); AST (SGOT) 14 U/L (5-34); Albumin 3.2 g/dL (3.4-4.8); Alkaline Phosphatase 129 U/L (40-110); Anion Gap 12 mmol/L (10-20); BUN (Urea Nitrogen) 14 mg/dL (8.4-25.7); Bilirubin, Total 0.4 mg/dL (0.2-1.2); Calc. Creatinine Clearance 0 mL/min (70-130); Calcium 7.1 mg/dL (7.8-10.44); Carbon Dioxide 17 mmol/L (23-31); Chloride 113 mmol/L (98-107); Globulin 2.1 g/dL (2.4-3.5); Glucose 128 mg/dL (83-110); Potassium 4.2 mmol/L (3.5-5.1); Protein, Total 5.3 g/dL (5.8-8.1); Sodium 138 mmol/L (136-145)
[2021-08-12 21:21] LABS: Band 14 % (5-11); Lymphocytes 4 % (21-51); MDiff Complete? YES; Macrocytosis SLIGHT = 6-15 cells (100X) (0-5/hpf); Monocytes 3 % (0-10); Neutrophil 79 % (42-75); Nucleated RBC 1 % (0); Polychromasia SLIGHT = 2-3 cells (100X) (0-2/hpf); Toxic Granulation SLIGHT; White Blood Cell (WBC) Count 43.8 thou/uL (4.8-10.8)
[2021-08-12 22:14] LABS: Bacteria/HPF None Seen HPF (None Seen); Bilirubin Negative (Negative); Blood, Urine Negative (Negative); Clarity Clear (Clear); Glucose, Urine (Dipstick) Normal (Negative); Ketone, Urine Negative (Negative); Leukocyte Negative Leu/uL (Negative); Nitrite Negative (Negative); Protein, Urine (Dipstick) 100 mg/dL (Neg-Trace); RBC/HPF 0-3 HPF (0-3); Specific Gravity, Urine 1.016 (1.002-1.036); Squamous Epithelial 0-3 HPF (0-3); Urobilinogen Normal mg/dL (Less than 2); WBC/HPF 0-3 HPF (0-3); pH, Urine 5.5 (5.0-9.0)
[2021-08-12] MEDS ORDERED: Ondansetron ODT 4 MG TAB PO PRN (23:39)
[2021-08-12] MEDS ORDERED: Acetaminophen 325 MG TAB PO PRN (23:39)
[2021-08-12] MEDS ORDERED: Acetaminophen 650 MG Suppository PR PRN (23:39)
[2021-08-12] MEDS ORDERED: Ondansetron PF 4 MG/2 ML Vial IVP PRN (23:39)
[2021-08-12] MEDS ORDERED: Sodium Chloride 0.9% 1,000 ML IV SCH (23:45)
[2021-08-13 04:56] LABS: Hemoglobin 7.1 g/dL (14.0-18.0); Mean Corpuscular HGB CONC 30.8 g/dL (32.0-36.0); Mean Corpuscular Hemoglobin 35.2 pg (27.0-31.0); Mean Platelet Volume 7.6 fL (7.4-10.4); Platelet Count 139 thou/uL (130-400); Red Blood Cell (RBC) Count 2.03 mill/uL (4.70-6.10); White Blood Cell (WBC) Count 42.4 thou/uL (4.8-10.8)
[2021-08-13 05:04] LABS: Anion Gap 9 mmol/L (10-20); BUN (Urea Nitrogen) 12 mg/dL (8.4-25.7); Calc. Creatinine Clearance 52 mL/min (70-130); Calcium 7.3 mg/dL (7.8-10.44); Carbon Dioxide 19 mmol/L (23-31); Chloride 115 mmol/L (98-107); Glucose 112 mg/dL (83-110); Sodium 139 mmol/L (136-145)
[2021-08-13 05:36] LABS: Band 15 % (5-11); Lymphocytes 6 % (21-51); MDiff Complete? YES; Macrocytosis SLIGHT = 6-15 cells (100X) (0-5/hpf); Monocytes 5 % (0-10); Neutrophil 74 % (42-75); Nucleated RBC 2 % (0); Polychromasia SLIGHT = 2-3 cells (100X) (0-2/hpf); Tear Drops SLIGHT = 2-5 cells (100X) (0-1/hpf)
[2021-08-13] MEDS ORDERED: Lactated Ringer's 1,000 ML IV SCH (07:30)
[2021-08-13 07:56] VITALS: TEMP 97.8
[2021-08-13] MEDS ORDERED: Enoxaparin Sodium 40 MG/0.4 ML SYRINGE SC SCH (09:00)
[2021-08-13 12:32] VITALS: BP 172/74
== END 2021-08-13 12:37 | disposition home or self-care (01) ==
LOC: ERS 20:11 → 2NO 23:42 → ERHOLD 08-13 00:33 → 2NO 08-13 00:34
PROVIDERS: ADMIT Student in an Organized Health Care Education/Training Program; ATTEND Internal Medicine
DX: E86.9 Volume depletion, unspecified (principal); I95.1 Orthostatic hypotension; C91.10 Chronic lymphocytic leukemia of B-cell type not having achieved remission; C61 Malignant neoplasm of prostate; C79.51 Secondary malignant neoplasm of bone; I69.351 Hemiplegia and hemiparesis following cerebral infarction affecting right dominant side; I25.10 Atherosclerotic heart disease of native coronary artery without angina pectoris; I11.0 Hypertensive heart disease with heart failure; I50.30 Unspecified diastolic (congestive) heart failure; M10.9 Gout, unspecified; D53.9 Nutritional anemia, unspecified; E78.5 Hyperlipidemia, unspecified; I48.20 Chronic atrial fibrillation, unspecified; Z79.899 Other long term (current) drug therapy; Z88.5 Allergy status to narcotic agent; Z88.8 Allergy status to other drugs, medicaments and biological substances; Z95.1 Presence of aortocoronary bypass graft; Z95.5 Presence of coronary angioplasty implant and graft
CPT/HCPCS: 36415; 71045; 80048; 80053; 81003; 81015; 83880; 84484; 85025; 86850; 86900; 86901; 93005; 96372; G0378; J1650; J7050; J7120

== ENCOUNTER 2021-08-21 08:04 | Day surgery (SDC) | payer MEDICARE, OTHER ==
[2021-08-21] MEDS ORDERED: Acetaminophen 500 MG TAB PO SCH (09:30)
[2021-08-21] MEDS ORDERED: diphenhydrAMINE 25 MG CAP PO SCH (09:30)
[2021-08-21] MEDS ORDERED: Sodium Chloride 0.9% 10 ML ONE (09:47)
[2021-08-21] MEDS ORDERED: Acetaminophen 500 MG TAB ONE (09:48)
[2021-08-21] MEDS ORDERED: diphenhydrAMINE 25 MG CAP ONE (09:48)
[2021-08-21] MEDS ORDERED: cloNIDine 0.1 MG TAB PO SCH (12:30)
[2021-08-21] MEDS ORDERED: cloNIDine 0.1 MG TAB ONE (12:40)
[2021-08-21 12:59] VITALS: TEMP 97.9
[2021-08-21 14:55] VITALS: BP 170/72
== END 2021-08-21 15:30 | disposition home or self-care (01) ==
LOC: ONC/OP 08:04
PROVIDERS: ATTEND Internal Medicine Hematology & Oncology
PROC: 30233N1 Transfusion of Nonautologous Red Blood Cells into Peripheral Vein, Percutaneous Approach (ICD-10-PCS; principal; 2021-08-21)
DX: D64.9 Anemia, unspecified (principal); D69.6 Thrombocytopenia, unspecified; Z88.5 Allergy status to narcotic agent; Z88.8 Allergy status to other drugs, medicaments and biological substances
CPT/HCPCS: 36430; 86850; 86900; 86901; J1642; P9016

== ENCOUNTER 2022-01-22 16:11 | Emergency (ER) | payer MEDICARE, OTHER ==
[~2022-01-22 16:11] MED LIST: Iopamidol-370 76% 500 ML 1 ML ONE
[2022-01-22 17:01] LABS: #Eosinphils 0.1 thou/uL (0.0-0.7); #Monocytes 0.4 thou/uL (0.11-0.59); #Neutrophils 2.6 thou/uL (1.40-6.50); %Basophils 0.8 % (0.0-1.0); %Eosinophils 1.4 % (0.0-10.0); %Lymphocytes 24.4 % (21.0-51.0); %Neutrophils 64.5 % (42.0-75.0); Hemoglobin 9.1 g/dL (14.0-18.0); Mean Corpuscular HGB CONC 32.7 g/dL (32.0-36.0); Mean Corpuscular Hemoglobin 35.3 pg (27.0-31.0); Mean Platelet Volume 7.2 fL (7.4-10.4); Platelet Count 169 thou/uL (130-400); RBC Distribution Width 16.2 % (11.5-14.5); Red Blood Cell (RBC) Count 2.58 mill/uL (4.70-6.10); White Blood Cell (WBC) Count 4.1 thou/uL (4.8-10.8)
[2022-01-22 17:13] LABS: Anisocytosis SLIGHT = 6-15 cells (100X) (0-5/hpf); MDiff Complete? YES; Macrocytosis SLIGHT = 6-15 cells (100X) (0-5/hpf); Platelet Morphology Comment Appears Adequate; Polychromasia SLIGHT = 2-3 cells (100X) (0-2/hpf)
[2022-01-22 17:21] LABS: ALT (SGPT) Less than 7 U/L (8-55); AST (SGOT) 12 U/L (5-34); Alkaline Phosphatase 139 U/L (40-110); Anion Gap 13 mmol/L (10-20); BUN (Urea Nitrogen) 34 mg/dL (8.4-25.7); Bilirubin, Total 0.7 mg/dL (0.2-1.2); Calc. Creatinine Clearance 0 mL/min (70-130); Calcium 7.9 mg/dL (7.8-10.44); Carbon Dioxide 18 mmol/L (23-31); Chloride 114 mmol/L (98-107); Globulin 2.9 g/dL (2.4-3.5); Glucose 102 mg/dL (83-110); Potassium 5.6 mmol/L (3.5-5.1); Protein, Total 6.9 g/dL (5.8-8.1); Sodium 139 mmol/L (136-145)
[2022-01-22 19:12] LABS: Troponin I Less than 0.010 ng/mL (< 0.028)
== END 2022-01-22 20:08 | disposition home or self-care (01) ==
LOC: ERS 16:11
DX: M54.6 Pain in thoracic spine (principal); C79.51 Secondary malignant neoplasm of bone; C61 Malignant neoplasm of prostate; R91.1 Solitary pulmonary nodule; I25.10 Atherosclerotic heart disease of native coronary artery without angina pectoris; E78.5 Hyperlipidemia, unspecified; I10 Essential (primary) hypertension; M10.9 Gout, unspecified
CPT/HCPCS: 36415; 71046; 71275; 80053; 84484; 85025; 93005; Q9967

== ENCOUNTER 2022-02-19 10:46 | Inpatient (IN) | payer MEDICARE, OTHER ==
[2022-02-19] MEDS ORDERED: Ondansetron PF 4 MG/2 ML Vial ONE (11:35)
[2022-02-19 12:03] LABS: #Lymphocytes 0.5 thou/uL (1.20-3.40); #Monocytes 0.1 thou/uL (0.11-0.59); #Neutrophils 1.7 thou/uL (1.40-6.50); %Basophils 0.5 % (0.0-1.0); %Lymphocytes 19.6 % (21.0-51.0); %Monocytes 3.1 % (0.0-10.0); %Neutrophils 75.8 % (42.0-75.0); Hemoglobin 10.2 g/dL (14.0-18.0); Mean Corpuscular HGB CONC 31.6 g/dL (32.0-36.0); Mean Corpuscular Hemoglobin 36.6 pg (27.0-31.0); Mean Platelet Volume 7.8 fL (7.4-10.4); Platelet Count 110 thou/uL (130-400); Platelet Morphology Comment PLT SLIGHTLY DECREASED; RBC Distribution Width 15.3 % (11.5-14.5); Red Blood Cell (RBC) Count 2.78 mill/uL (4.70-6.10); White Blood Cell (WBC) Count 2.3 thou/uL (4.8-10.8)
[2022-02-19 12:07] LABS: ALT (SGPT) Less than 7 U/L (8-55); AST (SGOT) 19 U/L (5-34); Albumin 3.6 g/dL (3.4-4.8); Alkaline Phosphatase 176 U/L (40-110); Anion Gap 13 mmol/L (10-20); BUN (Urea Nitrogen) 32 mg/dL (8.4-25.7); Bilirubin, Total 0.5 mg/dL (0.2-1.2); Calc. Creatinine Clearance 0 mL/min (70-130); Carbon Dioxide 15 mmol/L (23-31); Chloride 117 mmol/L (98-107); Estimated GFR 29; Globulin 2.3 g/dL (2.4-3.5); Glucose 135 mg/dL (83-110); Lipase 10 U/L (8-78); Protein, Total 5.9 g/dL (5.8-8.1); Sodium 138 mmol/L (136-145)
[2022-02-19 12:14] LABS: Potassium 6.6 mmol/L (3.5-5.1)
[2022-02-19] MEDS ORDERED: Dextrose 50% Abboject 50 ML SYRINGE ONE (14:20)
[2022-02-19] MEDS ORDERED: Insulin Regular 300 UNITS/3 ML VIAL ONE (14:20)
[2022-02-19] MEDS ORDERED: Calcium Chloride 1 GM/10 ML Abboject SYRINGE ONE (14:20)
[2022-02-19] MEDS ORDERED: Sodium Chloride 0.9% 1,000 ML IV SCH (18:10)
[2022-02-19] MEDS ORDERED: Ondansetron PF 4 MG/2 ML Vial IVP PRN (18:10)
[2022-02-19] MEDS ORDERED: Ondansetron ODT 4 MG TAB PO PRN (18:10)
[2022-02-19] MEDS ORDERED: Acetaminophen 500 MG TAB PO PRN (18:10)
[2022-02-19] MEDS ORDERED: traMADol HCl 50 MG TAB PO PRN (18:10)
[2022-02-19 19:45] VITALS: BMI 17.4
[2022-02-19] MEDS ORDERED: Famotidine 20 MG TAB PO SCH (21:00)
[2022-02-19] MEDS: Sodium Chloride 0.9% 1,000 ML IV SCH (21:49)
[2022-02-20] MEDS: Labetalol HCl 100 MG/20 ML VIAL SLOW IVP PRN ×2 (03:58→21:20)
[2022-02-20 05:14] LABS: #Lymphocytes 0.7 thou/uL (1.20-3.40); #Monocytes 0.1 thou/uL (0.11-0.59); #Neutrophils 1.3 thou/uL (1.40-6.50); %Basophils 0.3 % (0.0-1.0); %Eosinophils 1.9 % (0.0-10.0); %Monocytes 4.2 % (0.0-10.0); %Neutrophils 61.6 % (42.0-75.0); Hemoglobin 9.8 g/dL (14.0-18.0); Mean Corpuscular HGB CONC 32.3 g/dL (32.0-36.0); Mean Corpuscular Hemoglobin 37.7 pg (27.0-31.0); Mean Platelet Volume 8.4 fL (7.4-10.4); Platelet Count 98 thou/uL (130-400); RBC Distribution Width 14.9 % (11.5-14.5); Red Blood Cell (RBC) Count 2.61 mill/uL (4.70-6.10)
[2022-02-20 05:34] LABS: ALT (SGPT) Less than 7 U/L (8-55); AST (SGOT) 15 U/L (5-34); Albumin 3.2 g/dL (3.4-4.8); Alkaline Phosphatase 153 U/L (40-110); Anion Gap 15 mmol/L (10-20); BUN (Urea Nitrogen) 28 mg/dL (8.4-25.7); Bilirubin, Total 0.5 mg/dL (0.2-1.2); Calc. Creatinine Clearance 24 mL/min (70-130); Calcium 7.4 mg/dL (7.8-10.44); Carbon Dioxide 12 mmol/L (23-31); Chloride 119 mmol/L (98-107); Estimated GFR 36; Globulin 2.3 g/dL (2.4-3.5); Glucose 92 mg/dL (83-110); Potassium 6.3 mmol/L (3.5-5.1); Protein, Total 5.5 g/dL (5.8-8.1); Sodium 140 mmol/L (136-145)
[2022-02-20] MEDS: Sodium Chloride 0.9% 1,000 ML IV SCH (11:16)
[2022-02-20] MEDS: Amlodipine 5 MG TAB PO SCH (11:17)
[2022-02-20] MEDS: Calcitriol 0.25 MCG CAP PO SCH ×2 (11:17→11:18)
[2022-02-20] MEDS: Ferrous Sulfate 325 MG TAB PO SCH (11:18)
[2022-02-20] MEDS: Colchicine 0.6 MG TAB PO SCH ×2 (11:18→11:20)
[2022-02-20] MEDS ORDERED: Sodium Bicarbonate 150 MEQ in Dextrose 5% in Water 1,000 ML IV SCH (11:30)
[2022-02-20] MEDS ORDERED: Calcium Chloride 13.6 MEQ in Sodium Chloride 0.9% 100 ML IVPB SCH (11:30)
[2022-02-20] MEDS: Famotidine 20 MG TAB PO SCH (21:20)
[2022-02-21 05:10] LABS: #Lymphocytes 0.5 thou/uL (1.20-3.40); #Monocytes 0.1 thou/uL (0.11-0.59); %Eosinophils 2.6 % (0.0-10.0); %Lymphocytes 33.9 % (21.0-51.0); %Monocytes 2.9 % (0.0-10.0); %Neutrophils 60.5 % (42.0-75.0); Hemoglobin 9.1 g/dL (14.0-18.0); Mean Corpuscular HGB CONC 32.2 g/dL (32.0-36.0); Mean Corpuscular Hemoglobin 36.7 pg (27.0-31.0); Mean Platelet Volume 8.6 fL (7.4-10.4); Platelet Count 99 thou/uL (130-400); Red Blood Cell (RBC) Count 2.47 mill/uL (4.70-6.10); White Blood Cell (WBC) Count 1.6 thou/uL (4.8-10.8)
[2022-02-21 05:28] LABS: ALT (SGPT) Less than 7 U/L (8-55); AST (SGOT) 15 U/L (5-34); Albumin 3.1 g/dL (3.4-4.8); Alkaline Phosphatase 148 U/L (40-110); Anion Gap 11 mmol/L (10-20); BUN (Urea Nitrogen) 22 mg/dL (8.4-25.7); Bilirubin, Total 0.5 mg/dL (0.2-1.2); Calc. Creatinine Clearance 25 mL/min (70-130); Calcium 7.5 mg/dL (7.8-10.44); Carbon Dioxide 17 mmol/L (23-31); Chloride 115 mmol/L (98-107); Estimated GFR 39; Globulin 2.3 g/dL (2.4-3.5); Glucose 91 mg/dL (83-110); Protein, Total 5.4 g/dL (5.8-8.1); Sodium 137 mmol/L (136-145)
[2022-02-21] MEDS: Amlodipine 5 MG TAB PO SCH (09:00)
[2022-02-21] MEDS: Colchicine 0.6 MG TAB PO SCH (09:00)
[2022-02-21] MEDS: Ferrous Sulfate 325 MG TAB PO SCH (09:00)
[2022-02-21] MEDS ORDERED: Calcitriol 0.25 MCG CAP PO SCH (09:00)
[2022-02-21] MEDS ORDERED: Sodium Bicarbonate Tab 325 MG TAB PO SCH (10:30)
[2022-02-21] MEDS: Famotidine 20 MG TAB PO SCH (21:09)
[2022-02-21] MEDS: Calcium Carbonate 500 MG ChewTAB PO SCH (21:09)
[2022-02-21] MEDS: Sodium Bicarbonate Tab 325 MG TAB PO SCH (21:09)
[2022-02-21] MEDS: Labetalol HCl 100 MG/20 ML VIAL SLOW IVP PRN (21:10)
[2022-02-22 05:47] LABS: Phosphorus 2.9 mg/dL (2.3-4.7); Uric Acid 9.5 mg/dL (3.5-7.2)
[2022-02-22 08:30] LABS: Hemoglobin 9.5 g/dL (14.0-18.0); Mean Corpuscular HGB CONC 32.1 g/dL (32.0-36.0); Mean Corpuscular Hemoglobin 36.4 pg (27.0-31.0); Mean Platelet Volume 8.6 fL (7.4-10.4); Platelet Count 97 thou/uL (130-400); RBC Distribution Width 14.6 % (11.5-14.5); Red Blood Cell (RBC) Count 2.62 mill/uL (4.70-6.10); White Blood Cell (WBC) Count 1.4 thou/uL (4.8-10.8)
[2022-02-22 08:42] LABS: Calcium 7.9 mg/dL (7.8-10.44); Chloride 116 mmol/L (98-107); Potassium 5.6 mmol/L (3.5-5.1); Sodium 142 mmol/L (136-145)
[2022-02-22 08:43] LABS: Glucose 100 mg/dL (83-110)
[2022-02-22 08:44] LABS: Anion Gap 15 mmol/L (10-20); Carbon Dioxide 17 mmol/L (23-31)
[2022-02-22 08:46] LABS: Calc. Creatinine Clearance 24 mL/min (70-130); Estimated GFR 36
[2022-02-22 08:47] LABS: BUN (Urea Nitrogen) 23 mg/dL (8.4-25.7)
[2022-02-22] MEDS: Calcium Carbonate 500 MG ChewTAB PO SCH (09:00)
[2022-02-22] MEDS: Amlodipine 5 MG TAB PO SCH (09:00)
[2022-02-22] MEDS: Ferrous Sulfate 325 MG TAB PO SCH (09:01)
[2022-02-22] MEDS: Calcitriol 0.25 MCG CAP PO SCH (09:02)
[2022-02-22] MEDS: Colchicine 0.6 MG TAB PO SCH (09:02)
[2022-02-22] MEDS: Sodium Bicarbonate Tab 325 MG TAB PO SCH (09:02)
[2022-02-22 09:24] LABS: Band 22 % (5-11); Lymphocytes 30 % (21-51); MDiff Complete? YES; Macrocytosis SLIGHT = 6-15 cells (100X) (0-5/hpf); Monocytes 1 % (0-10); Neutrophil 43 % (42-75); Platelet Morphology Comment Appears Decreased; Polychromasia SLIGHT = 2-3 cells (100X) (0-2/hpf); Reactive Lymphocytes 3 % (0-10)
[2022-02-22 15:57] VITALS: BP 172/71; TEMP 98
== END 2022-02-22 20:03 | disposition home or self-care (01) | DRG 722 ==
LOC: ERS 10:46 → 2SW 18:10
PROVIDERS: ADMIT Family Medicine; ATTEND Hospitalist
DX: C61 Malignant neoplasm of prostate (principal); D61.810 Antineoplastic chemotherapy induced pancytopenia; E43 Unspecified severe protein-calorie malnutrition; C79.51 Secondary malignant neoplasm of bone; R64 Cachexia; N18.4 Chronic kidney disease, stage 4 (severe); N17.9 Acute kidney failure, unspecified; E87.2 Acidosis; Z68.1 Body mass index [BMI] 19.9 or less, adult; I25.10 Atherosclerotic heart disease of native coronary artery without angina pectoris; E78.5 Hyperlipidemia, unspecified; M10.9 Gout, unspecified; E87.5 Hyperkalemia; I12.9 Hypertensive chronic kidney disease with stage 1 through stage 4 chronic kidney disease, or unspecified chronic kidney disease; T45.1X5A Adverse effect of antineoplastic and immunosuppressive drugs, initial encounter; D63.1 Anemia in chronic kidney disease; K21.9 Gastro-esophageal reflux disease without esophagitis; E83.51 Hypocalcemia; Z20.822 Contact with and (suspected) exposure to COVID-19; Z95.1 Presence of aortocoronary bypass graft; Z86.73 Personal history of transient ischemic attack (TIA), and cerebral infarction without residual deficits; Z98.890 Other specified postprocedural states; Z88.8 Allergy status to other drugs, medicaments and biological substances; Z88.2 Allergy status to sulfonamides
CPT/HCPCS: 36415; 36416; 71045; 71250; 74177; 80048; 80053; 83615; 83690; 83880; 84100; 84484; 84550; 85025; 93005; 96361; 96374; 96375; J1642; J1815; J2405; J3490; J7050; J7070; J7999; U0003; U0005

== ENCOUNTER 2022-03-04 09:52 | Emergency (ER) | payer MEDICARE, OTHER ==
[2022-03-04 10:35] LABS: Hemoglobin 8.2 g/dL (14.0-18.0); Mean Corpuscular Hemoglobin 36.7 pg (27.0-31.0); Mean Platelet Volume 7.4 fL (7.4-10.4); Platelet Count 116 thou/uL (130-400); RBC Distribution Width 13.5 % (11.5-14.5); Red Blood Cell (RBC) Count 2.23 mill/uL (4.70-6.10); White Blood Cell (WBC) Count 2.3 thou/uL (4.8-10.8)
[2022-03-04 10:52] LABS: ALT (SGPT) Less than 7 U/L (8-55); AST (SGOT) 14 U/L (5-34); Albumin 3.1 g/dL (3.4-4.8); Alkaline Phosphatase 100 U/L (40-110); Anion Gap 14 mmol/L (10-20); BUN (Urea Nitrogen) 26 mg/dL (8.4-25.7); Band 7 % (5-11); Bilirubin, Total 1.1 mg/dL (0.2-1.2); Calc. Creatinine Clearance 0 mL/min (70-130); Carbon Dioxide 19 mmol/L (23-31); Chloride 112 mmol/L (98-107); Estimated GFR 33; Globulin 2.1 g/dL (2.4-3.5); Glucose 154 mg/dL (83-110); Lymphocytes 22 % (21-51); MDiff Complete? YES; Macrocytosis SLIGHT = 6-15 cells (100X) (0-5/hpf); Monocytes 22 % (0-10); Neutrophil 49 % (42-75); Platelet Morphology Comment Appears Decreased; Polychromasia SLIGHT = 2-3 cells (100X) (0-2/hpf); Potassium 3.7 mmol/L (3.5-5.1); Protein, Total 5.2 g/dL (5.8-8.1); Sodium 141 mmol/L (136-145)
[2022-03-04 11:19] LABS: Calcium 5.8 mg/dL (7.8-10.44)
[2022-03-04 13:41] LABS: Bacteria/HPF None Seen HPF (None Seen); Bilirubin Negative (Negative); Blood, Urine 1+ (Negative); Clarity Clear (Clear); Glucose, Urine (Dipstick) Normal (Negative); Ketone, Urine Negative (Negative); Leukocyte Negative Leu/uL (Negative); Nitrite Negative (Negative); Protein, Urine (Dipstick) 50 mg/dL (Neg-Trace); RBC/HPF None Seen HPF (0-3); Specific Gravity, Urine 1.013 (1.002-1.036); Squamous Epithelial 0-3 HPF (0-3); Urobilinogen Normal mg/dL (Less than 2); WBC/HPF 0-3 HPF (0-3); pH, Urine 5.5 (5.0-9.0)
[2022-03-04 14:03] LABS: SARS-CoV-2 NAA Rapid Test Not Detected (NotDetected)
== END 2022-03-04 15:51 | disposition home or self-care (01) ==
LOC: ERS 09:52
DX: D61.818 Other pancytopenia (principal); R55 Syncope and collapse; E78.5 Hyperlipidemia, unspecified; I10 Essential (primary) hypertension; Z79.899 Other long term (current) drug therapy; Z20.822 Contact with and (suspected) exposure to COVID-19
CPT/HCPCS: 71045; 80053; 84484; 85025; 93005; 96360; 99285; U0002; 36415; 81003; 81015